=== PATIENT | female | born 1990 | race Caucasian/White ===

== ENCOUNTER 2018-12-27 20:19 | Emergency (ER) | payer SELFPAY ==
[2018-12-27] MEDS ORDERED: Ketorolac 30 MG/ML SDV IVPUSH ONE (20:27)
[2018-12-27] MEDS ORDERED: Sodium Chloride 0.9% 1,000 ML IV ONE (20:27)
[2018-12-27] MEDS ORDERED: Albuterol/Ipratropium 3.0-0.5 MG/3 ML Neb Soln NEB ONE (20:33)
--- NOTE | 2018-12-27 20:33 | EDM.PDOC ---
ED HPI GENERAL MEDICAL PROBLEM - General Chief Complaint: Chest Pain Stated Complaint: PT HAS CHEST PAINS Time Seen by Provider: 12/27/18 20:25 Source of Information: Reports: Patient History Limitations: Reports: No Limitations - History of Present Illness INITIAL COMMENTS - FREE TEXT/NARRATIVE: HISTORY AND PHYSICAL: History of present illness: Patient is a 28-year-old female who presents to the emergency room with complaints of right sided chest pain. She points to her right anterior upper chest, sustaining that she can pinpoint the area that is painful and can re- create this pain with palpation. She states that the pain does radiate straight into her back. She does have a history of asthma but has not had to use her inhaler in years. Today she felt like she needed her inhaler but was concerned due to taking in deep breaths. Patient denies any fever, chills, headache, change in vision, syncope or near syncope. Denies any shortness of breath or cough. Denies any abdominal pain, nausea, vomiting, diarrhea, constipation or dysuria. Has not noted any blood in urine or stool. Denies any chance of Patient has been eating and drinking appropriately. Review of systems: As per history of present illness and below otherwise all systems reviewed and negative. Past medical history: As per history of present illness and as reviewed below otherwise noncontributory. Surgical history: As per history of present illness and as reviewed below otherwise noncontributory. Social history: See social history for further information Family history: As per history of present illness and as reviewed below otherwise noncontributory. Physical exam: General: Well-developed and well-nourished 28-year-old female. Alert and oriented. Nontoxic appearing and in no acute distress. HEENT: Atraumatic, normocephalic, pupils equal and reactive bilaterally, negative for conjunctival pallor or scleral icterus, mucous membranes moist, TMs normal bilaterally, throat clear, neck supple, nontender, trachea midline. No drooling or trismus noted. No meningeal signs. No hot potato voice noted. Lungs: Fine expiratory wheezing throughout otherwise clear to auscultation, breath sounds equal bilaterally, chest tender to the right upper anterior chest wall. Pain is reproducible with palpation. Heart: S1S2, regular rate and rhythm without overt murmur Abdomen: Soft, nondistended, obese, nontender. Negative for masses. Negative for costovertebral tenderness. Pelvis: Stable nontender. Genitourinary: Deferred. Rectal: Deferred. Skin: Intact, warm, dry. No lesions or rashes noted. Extremities: Atraumatic, moves all extremities per self with difficulty or deficits, negative for cords or calf pain. Neurovascular unremarkable. Neuro: Awake, alert, oriented. Cranial nerves II through XII unremarkable. Cerebellum unremarkable. Motor and sensory unremarkable throughout. Exam nonfocal. Notes: Lab work is unremarkable. Chest x-ray shows no acute findings. These were shared with the patient. Supportive care measures were reviewed and discussed. Voices understanding and is agreeable to plan of care. Denies any further questions or concerns at this time. Diagnostics: CBC, CMP, UA, hCG U, 2 view chest Therapeutics: IV fluid, Toradol, DuoNeb Prescription: Diclofenac Impression: Chest Wall Pain Plan: 1. Please take the anti-inflammatory as directed. 2. Use your inhaler as needed and as directed. 3. Follow-up with her primary care provider as we discussed. Return to the ED as needed and as discussed. Definitive disposition and diagnosis as appropriate pending reevaluation and review of above. chest Pain Score (Numeric/FACES): 7 - Related Data Allergies Allergy/AdvReac Type Severity Reaction Status Date / Time latex Allergy Hives Verified 12/27/18 20:23 metoclopramide [From Reglan] Allergy Irritabilit Verified 12/27/18 20:24 y morphine Allergy Other Verified 12/27/18 20:24 promethazine [From Phenergan] Allergy Irritabilit Verified 12/27/18 20:24 y sumatriptan [From Imitrex] Allergy Irritabilit Verified 12/27/18 20:24 y Home Meds: Home Meds . [No Known Home Meds] 12/27/18 [History] ED ROS GENERAL - Review of Systems Review Of Systems: ROS reveals no pertinent complaints other than HPI. ED EXAM, GENERAL - Physical Exam Exam: See Below (See dictation) Course - Vital Signs Last Recorded V/S: Last Vital Signs Temp 97.9 F 12/27/18 20:24 Pulse 96 12/27/18 20:24 Resp 20 12/27/18 20:24 BP 151/113 H 12/27/18 20:24 Pulse Ox 96 12/27/18 20:24 - Orders/Labs/Meds Orders: Active Orders 24 hr Category Date Time Status EKG Documentation Completion [RC] STAT Care 12/27/18 20:26 Active RT Aerosol Therapy [RC] ASDIRECTED Care 12/27/18 20:33 Active Sodium Chloride 0.9% [Normal Saline] 1,000 ml Med 12/27/18 20:27 Active IV STAT Medication Orders Sodium Chloride (Normal Saline) 1,000 mls @ 999 mls/hr IV STAT ONE Stop: 12/27/18 21:27 Last Admin: 12/27/18 20:38 Dose: 999 mls/hr Labs: Laboratory Tests 12/27/18 12/27/18 12/27/18 Range/Units 20:37 20:37 21:10 WBC 10.82 (4.0-11.0) K/uL RBC 5.43 (4.30-5.90) M/uL Hgb 14.6 (12.0-16.0) g/dL Hct 44.0 (36.0-46.0) % MCV 81.0 (80.0-98.0) fL MCH 26.9 L (27.0-32.0) pg MCHC 33.2 (31.0-37.0) g/dL RDW Std Deviation 44.3 (28.0-62.0) fl RDW Coeff of Bandar 15 (11.0-15.0) % Plt Count 266 (150-400) K/uL MPV 10.10 (7.40-12.00) fL Neut % (Auto) 67.2 (48.0-80.0) % Lymph % (Auto) 23.9 (16.0-40.0) % [place] % (Auto) 6.4 (0.0-15.0) % Eos % (Auto) 2.1 (0.0-7.0) % Baso % (Auto) 0.4 (0.0-1.5) % Neut # (Auto) 7.3 H (1.4-5.7) K/uL Lymph # (Auto) 2.6 H (0.6-2.4) K/uL [place] # (Auto) 0.7 (0.0-0.8) K/uL Eos # (Auto) 0.2 (0.0-0.7) K/uL Baso # (Auto) 0.0 (0.0-0.1) K/uL Sodium 140 (136-145) mmol/L Potassium 4.1 (3.5-5.1) mmol/L Chloride 104 (98-107) mmol/L Carbon Dioxide 26.6 (21.0-32.0) mmol/L BUN 11 (7.0-18.0) mg/dL Creatinine 0.9 (0.6-1.0) mg/dL Est Cr Clr Drug Dosing 83.74 mL/min Estimated GFR (MDRD) > 60.0 ml/min Glucose 96 (74-106) mg/dL Calcium 9.2 (8.5-10.1) mg/dL Total Bilirubin 0.3 (0.2-1.0) mg/dL AST 23 (15-37) IU/L ALT 45 (14-63) IU/L Alkaline Phosphatase 84 (46-116) U/L Troponin I < 0.050 (0.000-0.056) ng/mL Total Protein 8.0 (6.4-8.2) g/dL Albumin 3.7 (3.4-5.0) g/dL Globulin 4.3 H (2.6-4.0) g/dL Albumin/Globulin Ratio 0.9 (0.9-1.6) Urine Color YELLOW Urine Appearance CLEAR Urine pH 6.0 (5.0-8.0) Ur Specific [place] 1.025 (1.001-1.035) Urine Protein NEGATIVE (NEGATIVE) mg/dL Urine Glucose (UA) NEGATIVE (NEGATIVE) mg/dL Urine Ketones NEGATIVE (NEGATIVE) mg/dL Urine Occult Blood NEGATIVE (NEGATIVE) Urine Nitrite NEGATIVE (NEGATIVE) Urine Bilirubin NEGATIVE (NEGATIVE) Urine Urobilinogen 0.2 (<2.0) EU/dL Ur Leukocyte Esterase NEGATIVE (NEGATIVE) Urine HCG, Qual (NEGATIVE) 12/27/18 Range/Units 21:10 WBC (4.0-11.0) K/uL RBC (4.30-5.90) M/uL Hgb (12.0-16.0) g/dL Hct (36.0-46.0) % MCV (80.0-98.0) fL MCH (27.0-32.0) pg MCHC (31.0-37.0) g/dL RDW Std Deviation (28.0-62.0) fl RDW Coeff of [place] (11.0-15.0) % Plt Count (150-400) K/uL MPV (7.40-12.00) fL Neut % (Auto) (48.0-80.0) % Lymph % (Auto) (16.0-40.0) % [place] % (Auto) (0.0-15.0) % Eos % (Auto) (0.0-7.0) % Baso % (Auto) (0.0-1.5) % Neut # (Auto) (1.4-5.7) K/uL Lymph # (Auto) (0.6-2.4) K/uL [place] # (Auto) (0.0-0.8) K/uL Eos # (Auto) (0.0-0.7) K/uL Baso # (Auto) (0.0-0.1) K/uL Sodium (136-145) mmol/L Potassium (3.5-5.1) mmol/L Chloride (98-107) mmol/L Carbon Dioxide (21.0-32.0) mmol/L BUN (7.0-18.0) mg/dL Creatinine (0.6-1.0) mg/dL Est Cr Clr Drug Dosing mL/min Estimated GFR (MDRD) ml/min Glucose (74-106) mg/dL Calcium (8.5-10.1) mg/dL Total Bilirubin (0.2-1.0) mg/dL AST (15-37) IU/L ALT (14-63) IU/L Alkaline Phosphatase (46-116) U/L Troponin I (0.000-0.056) ng/mL Total Protein (6.4-8.2) g/dL Albumin (3.4-5.0) g/dL Globulin (2.6-4.0) g/dL Albumin/Globulin Ratio (0.9-1.6) Urine Color Urine Appearance Urine pH (5.0-8.0) Ur Specific [place] (1.001-1.035) Urine Protein (NEGATIVE) mg/dL Urine Glucose (UA) (NEGATIVE) mg/dL Urine Ketones (NEGATIVE) mg/dL Urine Occult Blood (NEGATIVE) Urine Nitrite (NEGATIVE) Urine Bilirubin (NEGATIVE) Urine Urobilinogen (<2.0) EU/dL Ur Leukocyte Esterase (NEGATIVE) Urine HCG, Qual NEGATIVE (NEGATIVE) Meds: Medications Generic Name Dose Route Start Last Admin Trade Name Anusha PRN Reason Stop Dose Admin Sodium Chloride 1,000 mls @ 999 mls/hr 12/27/18 20:27 12/27/18 20:38 Normal Saline IV 12/27/18 21:27 999 mls/hr STAT ONE Administration Discontinued Medications Generic Name Dose Route Start Last Admin Trade Name Anusha PRN Reason Stop Dose Admin Albuterol/Ipratropium 3 ml 12/27/18 20:33 12/27/18 20:44 Duoneb 3.0-0.5 Mg/3 Ml NEB 12/27/18 20:34 3 ml ONETIME ONE Administration Ketorolac Tromethamine 30 mg 12/27/18 20:27 12/27/18 20:38 Toradol IVPUSH 12/27/18 20:28 30 mg ONETIME ONE Administration Departure - Departure Time of Disposition: 21:21 Disposition: Home, Self-Care 01 Clinical Impression: Chest wall pain Instructions: Chest Wall Pain, [id number] Referrals: PCP,None [Primary Care Provider] - Forms: ED Department Discharge Additional Instructions: The following information is given to patients seen in the emergency department who are being discharged to home. This information is to outline your options for follow-up care. We provide all patients seen in our emergency department with a follow-up referral. The need for follow-up, as well as the timing and circumstances, are variable depending upon the specifics of your emergency department visit. If you don't have a primary care physician on staff, we will provide you with a referral. We always advise you to contact your personal physician following an emergency department visit to inform them of the circumstance of the visit and for follow-up with them and/or the need for any referrals to a consulting specialist. The emergency department will also refer you to a specialist when appropriate. This referral assures that you have the opportunity for follow-up care with a specialist. All of these measure are taken in an effort to provide you with optimal care, which includes your follow-up. Under all circumstances we always encourage you to contact your private physician who remains a resource for coordinating your care. When calling for follow-up care, please make the office aware that this follow-up is from your recent emergency room visit. If for any reason you are refused follow-up, please contact the [facility] Emergency Department at and asked to speak to the emergency department charge nurse. [facility] [address] [place] [address] [facility] [address] [place] [id number] 1. Please take the anti-inflammatory as directed. 2. Use your inhaler as needed and as directed. 3. Follow-up with her primary care provider as we discussed. Return to the ED as needed and as discussed. - My Orders Last 24 Hours: My Active Orders 12/27/18 20:26 EKG Documentation Completion [RC] STAT 12/27/18 20:27 Sodium Chloride 0.9% [Normal Saline] 1,000 ml IV STAT 12/27/18 20:33 RT Aerosol Therapy [RC] ASDIRECTED - Assessment/Plan Last 24 Hours: My Active Orders 12/27/18 20:26 EKG Documentation Completion [RC] STAT 12/27/18 20:27 Sodium Chloride 0.9% [Normal Saline] 1,000 ml IV STAT 12/27/18 20:33 RT Aerosol Therapy [RC] ASDIRECTED
[2018-12-27 21:09] LABS: CHLORIDE,CL 104 mmol/L (98-107); SODIUM,NA 140 mmol/L (136-145)
--- NOTE | 2018-12-27 21:15 | CR ---
INDICATION: Chest pain, shortness of breath TECHNIQUE: Chest 2 views. COMPARISON: None FINDINGS: The heart is normal in size. The pulmonary vasculature is within normal limits. The lungs are clear without focal consolidation, pleural effusion or pneumothorax. Visualized osseous structures are unremarkable. IMPRESSION: No acute cardiopulmonary process. Dictated by Kristin Kunz MD @ Dec 27 2018 9:12PM Signed by Dr. Kristin Kunz @ Dec 27 2018 9:13PM
== END 2018-12-27 21:30 | disposition home or self-care (01) ==
LOC: MW.ED 20:19
DX: R07.89 Other chest pain (principal); Z91.040 Latex allergy status; Z88.5 Allergy status to narcotic agent; Z88.8 Allergy status to other drugs, medicaments and biological substances
CPT/HCPCS: 36415; 71046; 80053; 81003; 81025; 84484; 85025; 93005; 94640; 96361; 96374; 99285; J1885; J7040; 99284; J7620-GY

== ENCOUNTER 2019-02-07 22:26 | Emergency (ER) | payer MEDICAID ==
--- NOTE | 2019-02-07 22:55 | EDM.PDOC ---
ED HPI GENERAL MEDICAL PROBLEM - General Chief Complaint: Flank Pain Stated Complaint: KIDNEY STONES Time Seen by Provider: 02/07/19 22:46 - History of Present Illness INITIAL COMMENTS - FREE TEXT/NARRATIVE: HISTORY AND PHYSICAL: History of present illness: Patient 28-year-old female with history of nephrolithiasis who states she's never had an obstructing stone but she has had pain related to her nephrolithiasis for which she's been treated with lithotripsy she saw local urology recently who CT her and again identified nephrolithiasis patient states there is some concern about how this can be causing her flank pain. On arrival here today patient is requesting Toradol she is declining any further diagnostic but does agree to UA and she does understand the general consensus that nephrolithiasis without any obstruction or infection does not commonly cause this type of pain. Review of systems: As per history of present illness and below otherwise all systems reviewed and negative. Past medical history: As per history of present illness and as reviewed below otherwise noncontributory. Surgical history: As per history of present illness and as reviewed below otherwise noncontributory. Social history: No reported history of drug or alcohol abuse. Family history: As per history of present illness and as reviewed below otherwise noncontributory. Physical exam: HEENT: Atraumatic, normocephalic, pupils reactive, negative for conjunctival pallor or scleral icterus, mucous membranes moist, throat clear, neck supple, nontender, trachea midline. Lungs: Clear to auscultation, breath sounds equal bilaterally, chest nontender. Heart: S1S2, regular, negative for clicks, rubs, or JVD. Abdomen: Soft, nondistended, nontender. Negative for masses or hepatosplenomegaly. Negative for costovertebral tenderness. Pelvis: Stable nontender. Genitourinary: Deferred. Rectal: Deferred. Extremities: Atraumatic, negative for cords or calf pain. Neurovascular unremarkable. Neuro: Awake, alert, oriented. Cranial nerves II through XII unremarkable. Cerebellum unremarkable. Motor and sensory unremarkable throughout. Exam nonfocal. Diagnostics: UA Therapeutics: Toradol 30 mg IV Impression: #1 history of nephrolithiasis #2 flank pain Definitive disposition and diagnosis as appropriate pending reevaluation and review of above. Treatments FURNACE CONVERTER: Reports: NSAIDS, Other (see below) Other Treatments FURNACE CONVERTER: Toradol;Oxycodone left flank Pain Score (Numeric/FACES): 7 - Related Data Allergies Allergy/AdvReac Type Severity Reaction Status Date / Time acetaminophen [From Vicodin] Allergy Irritabilit Verified 02/07/19 22:35 y adhesive Allergy Hives Verified 02/07/19 22:35 hydrocodone [From Vicodin] Allergy Irritabilit Verified 02/07/19 22:35 y latex Allergy Hives Verified 02/07/19 22:34 metoclopramide [From Reglan] Allergy Irritabilit Verified 02/07/19 22:34 y morphine Allergy Other Verified 02/07/19 22:34 promethazine [From Phenergan] Allergy Irritabilit Verified 02/07/19 22:34 y sumatriptan [From Imitrex] Allergy Irritabilit Verified 02/07/19 22:34 y Home Meds: Home Meds ALPRAZolam [Xanax] 1 tab PO ASDIRECTED 02/07/19 [History] FLUoxetine [PROzac] 10 mg PO DAILY 02/07/19 [History] Past Medical History HEENT History: Reports: Impaired Vision, Other (See Below) Other HEENT History: wears glasses Respiratory History: Reports: Asthma, Sleep Apnea Gastrointestinal History: Reports: GERD, Irritable Bowel Syndrome Genitourinary History: Reports: Renal Calculus 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 PRACTITIONER History: Reports: Polycystic Ovaries Neurological History: Reports: Migraines Psychiatric History: Reports: Anxiety, Depression Endocrine/Metabolic History: Reports: Obesity/BMI 30+ - Infectious Disease History Infectious Disease History: Reports: Chicken Pox - Past Surgical History Female Surgical History: Reports: Lithotripsy/ESWL, Other (See Below) Other Female Surgeries/Procedures: Nephrostomy Social & Family History - Family History Family Medical History: Noncontributory - Tobacco Use Smoking Status *Q: Current Every Day Smoker Years of Tobacco use: 10 Packs/Tins Daily: 1 - Caffeine Use Caffeine Use: Reports: Coffee, Energy Drinks, Soda, Tea - Recreational Drug Use Recreational Drug Use: No ED ROS GENERAL - Review of Systems Review Of Systems: ROS reveals no pertinent complaints other than HPI. ED EXAM, GENERAL - Physical Exam Exam: See Below (The dictation) Course - Vital Signs Last Recorded V/S: Last Vital Signs Temp 35.7 C 02/07/19 22:30 Pulse 119 H 02/07/19 22:30 Resp 18 02/07/19 22:30 BP 159/94 H 02/07/19 22:30 Pulse Ox 95 02/07/19 22:30 - Orders/Labs/Meds Labs: Laboratory Tests 02/07/19 Range/Units 22:57 Urine Color YELLOW Urine Appearance CLEAR Urine pH 6.0 (5.0-8.0) Ur Specific [place] 1.010 (1.001-1.035) Urine Protein NEGATIVE (NEGATIVE) mg/dL Urine Glucose (UA) NEGATIVE (NEGATIVE) mg/dL Urine Ketones NEGATIVE (NEGATIVE) mg/dL Urine Occult Blood NEGATIVE (NEGATIVE) Urine Nitrite NEGATIVE (NEGATIVE) Urine Bilirubin NEGATIVE (NEGATIVE) Urine Urobilinogen 0.2 (<2.0) EU/dL Ur Leukocyte Esterase NEGATIVE (NEGATIVE) Meds: Medications Discontinued Medications Generic Name Dose Route Start Last Admin Trade Name Freq PRN Reason Stop Dose Admin Ketorolac Tromethamine 30 mg 02/07/19 23:01 02/07/19 23:05 Toradol IVPUSH 02/07/19 23:02 30 mg ONETIME ONE Administration Departure - Departure Time of Disposition: 23:29 Disposition: Home, Self-Care 01 Condition: Good Clinical Impression: Flank pain, History of nephrolithiasis - Discharge Information Referrals: Henri Gutierrez MD [Primary Care Provider] - Forms: ED Department Discharge Additional Instructions: The following information is given to patients seen in the emergency department who are being discharged to home. This information is to outline your options for follow-up care. We provide all patients seen in our emergency department with a follow-up referral. The need for follow-up, as well as the timing and circumstances, are variable depending upon the specifics of your emergency department visit. If you don't have a primary care physician on staff, we will provide you with a referral. We always advise you to contact your personal physician following an emergency department visit to inform them of the circumstance of the visit and for follow-up with them and/or the need for any referrals to a consulting specialist. The emergency department will also refer you to a specialist when appropriate. This referral assures that you have the opportunity for followup care with a specialist. All of these measure are taken in an effort to provide you with optimal care, which includes your followup. Under all circumstances we always encourage you to contact your private physician who remains a resource for coordinating your care. When calling for followup care, please make the office aware that this follow-up is from your recent emergency room visit. If for any reason you are refused follow-up, please contact the [facility] emergency department at and asked to speak to the emergency department charge nurse. Push fluids follow primary medical doctor in urology as discussed return as needed as discussed
[2019-02-07] MEDS ORDERED: Ketorolac 30 MG/ML SDV IVPUSH ONE (23:01)
== END 2019-02-07 23:40 | disposition home or self-care (01) ==
LOC: MW.ED 22:26
DX: R10.9 Unspecified abdominal pain (principal); Z87.442 Personal history of urinary calculi; Z88.6 Allergy status to analgesic agent; Z91.09 Other allergy status, other than to drugs and biological substances; Z91.040 Latex allergy status; Z88.5 Allergy status to narcotic agent; Z88.8 Allergy status to other drugs, medicaments and biological substances
CPT/HCPCS: 81003; 96372; 99284; J1885

== ENCOUNTER 2019-03-03 16:30 | Emergency (ER) | payer MEDICAID ==
[2019-03-03] MEDS ORDERED: Ketorolac 30 MG/ML SDV IVPUSH ONE (17:32)
--- NOTE | 2019-03-03 17:34 | EDM.PDOC ---
ED HPI GENERAL MEDICAL PROBLEM - General Chief Complaint: Headache Stated Complaint: HEAD LUMP/HEADACHE Time Seen by Provider: 03/03/19 16:32 Source of Information: Reports: Patient History Limitations: Reports: No Limitations - History of Present Illness INITIAL COMMENTS - FREE TEXT/NARRATIVE: HISTORY AND PHYSICAL: History of present illness: Patient is a 28-year-old female presents to the ED today with concern of left sided facial swelling that started last night and worsened this morning. Patient states she also has a bump on the top of her head that she is not sure is related to her symptoms are not that started causing pain yesterday. Patient states she does have a history of scalp psoriasis and has had several other issues with her scalp in general. Patient states the swelling on the left side of her face has made it difficult to open her mouth due to pain. Patient denies any dental pain and states she sees a dentist regularly and keeps up on dental cleanings and has never had issues with her teeth. Patient states she does smoke cigarettes but denies any other substance use. Patient denies fever, chills, chest pain, shortness of breath, or cough. Denies headache, neck stiff ness, change in vision, syncope, or near syncope. Denies nausea, vomiting, abdominal pain, diarrhea, constipation, or dysuria. Has not noted any blood in urine or stool. Patient has been eating and drinking appropriately but pain doing so. Review of systems: As per history of present illness and below otherwise all systems reviewed and negative. Past medical history: As per history of present illness and as reviewed below otherwise noncontributory. Surgical history: As per history of present illness and as reviewed below otherwise noncontributory. Social history: See social history for further information Family history: As per history of present illness and as reviewed below otherwise noncontributory. Physical exam: General: Patient is alert, oriented, and in no acute distress. Patient sitting comfortably on exam table. HEENT: Atraumatic, normocephalic, pupils equal and reactive bilaterally, negative for conjunctival pallor or scleral icterus, mucous membranes moist, TMs normal bilaterally, throat clear, neck supple, nontender, trachea midline. No drooling or trismus noted. No meningeal signs. No hot potato voice noted. There is a 2cm lesion just a few cm from the forehead into the scalp that is painful to palpation. Appears to have excoriation on top with surrounding psoriasis plaques of generalized scalp. Severe pain to palpation of the preauricular area with swelling. Unable to fully assess this swelling due to pain. Dention appears well kept and no pain with palpation of the generalized teeth. Lungs: Clear to auscultation, breath sounds equal bilaterally, chest nontender. Heart: S1S2, regular rate and rhythm without overt murmur Abdomen: Soft, nondistended, nontender. Negative for masses or hepatosplenomegaly. Negative for costovertebral tenderness. Pelvis: Stable nontender. Genitourinary: Deferred. Rectal: Deferred. Skin: Intact, warm, dry. No lesions or rashes noted. Extremities: Atraumatic, negative for cords or calf pain. Neurovascular unremarkable. Neuro: Awake, alert, oriented. Cranial nerves II through XII unremarkable. Cerebellum unremarkable. Motor and sensory unremarkable throughout. Exam nonfocal. Notes: The lesion on the scalp appears to be scratched and secondarily affected psoriasis patch with about an area of 1cm cellulitis. Supportive care measures were reviewed and discussed. Voices understanding and is agreeable to plan of care. Denies any further questions or concerns at this time. Diagnostics: CBC, CMP, UA, strep, mono, [facility] Therapeutics: Toradol Prescription: Keflex Impression: Lymphadenitis, preauricular Scalp psoriasis with secondary cellulitis infection Plan: 1. Take medication as prescribed. Alternate ibuprofen and tylenol as directed for pain and discomfort. 2. Follow-up with primary care provider as discussed. Return to the ED as needed and as discussed. Definitive disposition and diagnosis as appropriate pending reevaluation and review of above. left top of head Pain Score (Numeric/FACES): 5 - Related Data Allergies Allergy/AdvReac Type Severity Reaction Status Date / Time acetaminophen [From Vicodin] Allergy Irritabilit Verified 03/03/19 16:41 y adhesive Allergy Hives Verified 03/03/19 16:41 hydrocodone [From Vicodin] Allergy Irritabilit Verified 03/03/19 16:41 y latex Allergy Hives Verified 03/03/19 16:41 metoclopramide [From Reglan] Allergy Irritabilit Verified 03/03/19 16:41 y morphine Allergy Other Verified 03/03/19 16:41 promethazine [From Phenergan] Allergy Irritabilit Verified 03/03/19 16:41 y sumatriptan [From Imitrex] Allergy Irritabilit Verified 03/03/19 16:41 y Home Meds: Home Meds ALPRAZolam [Xanax] 1 tab PO ASDIRECTED 02/07/19 [History] FLUoxetine [PROzac] 10 mg PO DAILY 02/07/19 [History] Past Medical History HEENT History: Reports: Impaired Vision, Other (See Below) Other HEENT History: wears glasses Respiratory History: Reports: Asthma, Sleep Apnea Gastrointestinal History: Reports: GERD, Irritable Bowel Syndrome Genitourinary History: Reports: Renal Calculus 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: Polycystic Ovaries Neurological History: Reports: Migraines Psychiatric History: Reports: Anxiety, Depression Endocrine/Metabolic History: Reports: Obesity/BMI 30+ - Infectious Disease History Infectious Disease History: Reports: None - Past Surgical History Female Surgical History: Reports: Lithotripsy/ESWL, Other (See Below) Other Female Surgeries/Procedures: Nephrostomy Social & Family History - Family History Family Medical History: Noncontributory - Tobacco Use Smoking Status *Q: Current Every Day Smoker Years of Tobacco use: 10 Packs/Tins Daily: 0.5 - Caffeine Use Caffeine Use: Reports: Coffee, Energy Drinks, Soda, Tea - Recreational Drug Use Recreational Drug Use: No ED ROS GENERAL - Review of Systems Review Of Systems: ROS reveals no pertinent complaints other than HPI. ED EXAM, GENERAL - Physical Exam Exam: See Below (See dictation) Course - Vital Signs Last Recorded V/S: Last Vital Signs Temp 36.1 C 03/03/19 16:39 Pulse 114 H 03/03/19 16:39 Resp 18 03/03/19 16:39 BP 152/113 H 03/03/19 16:39 Pulse Ox 95 03/03/19 16:39 - Orders/Labs/Meds Orders: Active Orders 24 hr Category Date Time Status CULTURE STREP A CONFIRMATION [] Stat Lab 03/03/19 17:18 Results STREP SCRN A RAPID W CULT CONF [] Stat Lab 03/03/19 17:18 Results Labs: Laboratory Tests 03/03/19 03/03/19 03/03/19 Range/Units 17:10 17:10 17:10 WBC 9.24 (4.0-11.0) K/uL RBC 5.54 (4.30-5.90) M/uL Hgb 14.8 (12.0-16.0) g/dL Hct 46.9 H (36.0-46.0) % MCV 84.7 (80.0-98.0) fL MCH 26.7 L (27.0-32.0) pg MCHC 31.6 (31.0-37.0) g/dL RDW Std Deviation 43.9 (28.0-62.0) fl RDW Coeff of [place]ar 14 (11.0-15.0) % Plt Count 238 (150-400) K/uL MPV 10.50 (7.40-12.00) fL Neut % (Auto) 66.6 (48.0-80.0) % Lymph % (Auto) 25.0 (16.0-40.0) % [place] % (Auto) 5.5 (0.0-15.0) % Eos % (Auto) 2.6 (0.0-7.0) % Baso % (Auto) 0.3 (0.0-1.5) % Neut # (Auto) 6.2 H (1.4-5.7) K/uL Lymph # (Auto) 2.3 (0.6-2.4) K/uL [place] # (Auto) 0.5 (0.0-0.8) K/uL Eos # (Auto) 0.2 (0.0-0.7) K/uL Baso # (Auto) 0.0 (0.0-0.1) K/uL Nucleated RBC % 0.0 /100WBC Nucleated RBCs # 0 K/uL Sodium 140 (136-145) mmol/L Potassium 4.3 (3.5-5.1) mmol/L Chloride 104 (98-107) mmol/L Carbon Dioxide 26.6 (21.0-32.0) mmol/L BUN 11 (7.0-18.0) mg/dL Creatinine 0.7 (0.6-1.0) mg/dL Est Cr Clr Drug Dosing 107.67 mL/min Estimated GFR (MDRD) > 60.0 ml/min Glucose 113 H (74-106) mg/dL Calcium 9.1 (8.5-10.1) mg/dL Total Bilirubin 0.4 (0.2-1.0) mg/dL AST 19 (15-37) IU/L ALT 28 (14-63) IU/L Alkaline Phosphatase 95 (46-116) U/L Total Protein 7.9 (6.4-8.2) g/dL Albumin 3.6 (3.4-5.0) g/dL Globulin 4.3 H (2.6-4.0) g/dL Albumin/Globulin Ratio 0.8 L (0.9-1.6) Urine Color Urine Appearance Urine pH (5.0-8.0) Ur Specific [place] (1.001-1.035) Urine Protein (NEGATIVE) mg/dL Urine Glucose (UA) (NEGATIVE) mg/dL Urine Ketones (NEGATIVE) mg/dL Urine Occult Blood (NEGATIVE) Urine Nitrite (NEGATIVE) Urine Bilirubin (NEGATIVE) Urine Urobilinogen (<2.0) EU/dL Ur Leukocyte Esterase (NEGATIVE) Urine HCG, Qual (NEGATIVE) Monoscreen NEGATIVE (NEG) 03/03/19 03/03/19 Range/Units 17:15 17:15 WBC (4.0-11.0) K/uL RBC (4.30-5.90) M/uL Hgb (12.0-16.0) g/dL Hct (36.0-46.0) % MCV (80.0-98.0) fL MCH (27.0-32.0) pg MCHC (31.0-37.0) g/dL RDW Std Deviation (28.0-62.0) fl RDW Coeff of [place] (11.0-15.0) % Plt Count (150-400) K/uL MPV (7.40-12.00) fL Neut % (Auto) (48.0-80.0) % Lymph % (Auto) (16.0-40.0) % [place] % (Auto) (0.0-15.0) % Eos % (Auto) (0.0-7.0) % Baso % (Auto) (0.0-1.5) % Neut # (Auto) (1.4-5.7) K/uL Lymph # (Auto) (0.6-2.4) K/uL [place] # (Auto) (0.0-0.8) K/uL Eos # (Auto) (0.0-0.7) K/uL Baso # (Auto) (0.0-0.1) K/uL Nucleated RBC % /100WBC Nucleated RBCs # K/uL Sodium (136-145) mmol/L Potassium (3.5-5.1) mmol/L Chloride (98-107) mmol/L Carbon Dioxide (21.0-32.0) mmol/L BUN (7.0-18.0) mg/dL Creatinine (0.6-1.0) mg/dL Est Cr Clr Drug Dosing mL/min Estimated GFR (MDRD) ml/min Glucose (74-106) mg/dL Calcium (8.5-10.1) mg/dL Total Bilirubin (0.2-1.0) mg/dL AST (15-37) IU/L ALT (14-63) IU/L Alkaline Phosphatase (46-116) U/L Total Protein (6.4-8.2) g/dL Albumin (3.4-5.0) g/dL Globulin (2.6-4.0) g/dL Albumin/Globulin Ratio (0.9-1.6) Urine Color YELLOW Urine Appearance CLEAR Urine pH 7.0 (5.0-8.0) Ur Specific [place] 1.015 (1.001-1.035) Urine Protein NEGATIVE (NEGATIVE) mg/dL Urine Glucose (UA) NEGATIVE (NEGATIVE) mg/dL Urine Ketones NEGATIVE (NEGATIVE) mg/dL Urine Occult Blood NEGATIVE (NEGATIVE) Urine Nitrite NEGATIVE (NEGATIVE) Urine Bilirubin NEGATIVE (NEGATIVE) Urine Urobilinogen 0.2 (<2.0) EU/dL Ur Leukocyte Esterase NEGATIVE (NEGATIVE) Urine HCG, Qual NEGATIVE (NEGATIVE) Monoscreen (NEG) Meds: Medications Discontinued Medications Generic Name Dose Route Start Last Admin Trade Name Freq PRN Reason Stop Dose Admin Iopamidol 75 ml 03/03/19 18:37 03/03/19 18:37 Isovue Multipack-370 (76%) IVPUSH 03/03/19 18:38 75 ml ONETIME STA Administration Ketorolac Tromethamine 30 mg 03/03/19 17:32 03/03/19 17:44 Toradol IVPUSH 03/03/19 17:33 30 mg ONETIME ONE Administration Departure - Departure Time of Disposition: 19:41 Disposition: Home, Self-Care 01 Clinical Impression: Lymphadenitis Cellulitis Qualifiers: Site of cellulitis: head Qualified Code(s): L03.811 - Cellulitis of head [any part, except face] - Discharge Information Instructions: Lymphadenopathy, Cellulitis, Adult, [id number] Referrals: PCP,None [Primary Care Provider] - Forms: ED Department Discharge Additional Instructions: The following information is given to patients seen in the emergency department who are being discharged to home. This information is to outline your options for follow-up care. We provide all patients seen in our emergency department with a follow-up referral. The need for follow-up, as well as the timing and circumstances, are variable depending upon the specifics of your emergency department visit. If you don't have a primary care physician on staff, we will provide you with a referral. We always advise you to contact your personal physician following an emergency department visit to inform them of the circumstance of the visit and for follow-up with them and/or the need for any referrals to a consulting specialist. The emergency department will also refer you to a specialist when appropriate. This referral assures that you have the opportunity for follow-up care with a specialist. All of these measure are taken in an effort to provide you with optimal care, which includes your follow-up. Under all circumstances we always encourage you to contact your private physician who remains a resource for coordinating your care. When calling for follow-up care, please make the office aware that this follow-up is from your recent emergency room visit. If for any reason you are refused follow-up, please contact the [facility] Emergency Department at and asked to speak to the emergency department charge nurse. [facility] [address] [place] [id number] [address] 1. Take medication as prescribed. Alternate ibuprofen and tylenol as directed for pain and discomfort. 2. Follow-up with primary care provider as discussed. Return to the ED as needed and as discussed. - My Orders Last 24 Hours: My Active Orders 03/03/19 17:18 CULTURE STREP A CONFIRMATION [RM] Stat STREP SCRN A RAPID W CULT CONF [RM] Stat - Assessment/Plan Last 24 Hours: My Active Orders 03/03/19 17:18 CULTURE STREP A CONFIRMATION [RM] Stat STREP SCRN A RAPID W CULT CONF [RM] Stat
[2019-03-03 17:58] LABS: CHLORIDE,CL 104 mmol/L (98-107); SODIUM,NA 140 mmol/L (136-145)
[2019-03-03] MEDS ORDERED: Iopamidol 755 MG/ML 500 ML Multipack Bottle IVPUSH STA (18:37)
--- NOTE | 2019-03-03 19:24 | CT ---
INDICATION: Left-sided facial swelling TECHNIQUE: CT maxillofacial with 75 cc Isovue 370 IV. COMPARISON: None FINDINGS: Facial bones: No fractures or bone lesions. Specifically the nasal bones, temporomandibular joints, maxilla and mandible appear intact. Orbits and globes: Unremarkable. Globes are intact. No sign of intraorbital hemorrhage or emphysema. Sinuses: No acute or significant findings. Soft tissues: No focal swelling or inflammation. No fluid collection. There are multiple minimally prominent lymph nodes. IMPRESSION: No sign of focal inflammation or edema. No abscess. There are a few minimally enlarged lymph nodes. Please note that all CT scans at this facility use dose modulation, iterative reconstruction, and/or weight-based dosing when appropriate to reduce radiation dose to as low as reasonably achievable. Dictated by Wilberto Mcclure MD @ Mar 03 2019 7:09PM Signed by Dr. Wilberto Mcclure @ Mar 03 2019 7:23PM
== END 2019-03-03 19:45 | disposition home or self-care (01) ==
LOC: MW.ED 16:30
DX: L03.811 Cellulitis of head [any part, except face] (principal); I88.8 Other nonspecific lymphadenitis; L40.8 Other psoriasis
CPT/HCPCS: 36415; 70487; 80053; 81003; 81025; 85025; 86308; 87081; 87880; 96374; 99284; J1885; Q9967

== ENCOUNTER 2019-03-05 21:38 | Emergency (ER) | payer MEDICAID ==
[2019-03-05] MEDS ORDERED: Ertapenem 1 GM Vial IM STA (22:37)
[2019-03-05] MEDS ORDERED: Sulfamethoxazole/Trimethoprim 800-160 MG Tab PO ONE (22:38)
--- NOTE | 2019-03-05 22:40 | EDM.PDOC ---
ED HPI GENERAL MEDICAL PROBLEM - General Chief Complaint: Neck Problem Stated Complaint: HEADACHE Time Seen by Provider: 03/05/19 22:38 Source of Information: Reports: Patient - History of Present Illness INITIAL COMMENTS - FREE TEXT/NARRATIVE: HISTORY AND PHYSICAL: History of present illness: [Patient presents with recent history of cellulitis and clinical parotitis She has increasing symptoms no current sore throat no fever nausea vomiting chills sweats no muffled voice or trismus no drooling ] Review of systems: As per history of present illness and below otherwise all systems reviewed and negative. Past medical history: As per history of present illness and as reviewed below otherwise noncontributory. Surgical history: As per history of present illness and as reviewed below otherwise noncontributory. Social history: No reported history of drug or alcohol abuse. Family history: As per history of present illness and as reviewed below otherwise noncontributory. Physical exam: HEENT: Atraumatic, normocephalic, pupils reactive, negative for conjunctival pallor or scleral icterus, mucous membranes moist, throat clear, neck supple, nontender, trachea midline. Moderate tenderness over the parotid gland on the left, small scalp lesion tender to the touch but size of a quarter red warm tender cellulitic no exudate for culture no fluctuance for I&D Lungs: Clear to auscultation, breath sounds equal bilaterally, chest nontender. Heart: S1S2, regular, negative for clicks, rubs, or JVD. Abdomen: Soft, nondistended, nontender. Negative for masses or hepatosplenomegaly. Negative for costovertebral tenderness. Pelvis: Stable nontender. Genitourinary: Deferred. Rectal: Deferred. Extremities: Atraumatic, negative for cords or calf pain. Neurovascular unremarkable. Neuro: Awake, alert, oriented. Cranial nerves II through XII unremarkable. Cerebellum unremarkable. Motor and sensory unremarkable throughout. Exam nonfocal. Diagnostics: [CT on file from 2 days prior Lab on file] Therapeutics: [Invanz 1 g IM Bactrim double strength by mouth twice a day #20 no refill ] return if symptoms persist or worsen despite treatment or if new concerning symptoms develop Impression: [Cellulitis, scalp quarter-sized lesion of tenderness Tender over left parotid gland, consistent with parotitis Definitive disposition and diagnosis as appropriate pending reevaluation and review of above. 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 Pain Score (Numeric/FACES): 7 - Related Data Allergies Allergy/AdvReac Type Severity Reaction Status Date / Time acetaminophen [From Vicodin] Allergy Irritabilit Verified 03/05/19 22:05 y adhesive Allergy Hives Verified 03/05/19 22:05 hydrocodone [From Vicodin] Allergy Irritabilit Verified 03/05/19 22:05 y latex Allergy Hives Verified 03/05/19 22:05 metoclopramide [From Reglan] Allergy Irritabilit Verified 03/05/19 22:05 y morphine Allergy Other Verified 03/05/19 22:05 promethazine [From Phenergan] Allergy Irritabilit Verified 03/05/19 22:05 y sumatriptan [From Imitrex] Allergy Irritabilit Verified 03/05/19 22:05 y Home Meds: Home Meds ALPRAZolam [Xanax] 1 tab PO ASDIRECTED 02/07/19 [History] FLUoxetine [PROzac] 10 mg PO DAILY 02/07/19 [History] cephALEXin [Keflex] mg PO BID 03/05/19 [History] Past Medical History HEENT History: Reports: Impaired Vision, Other (See Below) Other HEENT History: wears glasses Respiratory History: Reports: Asthma, Sleep Apnea Gastrointestinal History: Reports: GERD, Irritable Bowel Syndrome Genitourinary History: Reports: Renal Calculus 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 Neurological History: Reports: Migraines Psychiatric History: Reports: Anxiety, Depression Endocrine/Metabolic History: Reports: Obesity/BMI 30+ - Infectious Disease History Infectious Disease History: Reports: None - Past Surgical History Female Surgical History: Reports: Lithotripsy/ESWL, Other (See Below) Other Female Surgeries/Procedures: Nephrostomy Social & Family History - Family History Family Medical History: Noncontributory - Tobacco Use Smoking Status *Q: Never Smoker - Caffeine Use Caffeine Use: Reports: Coffee, Energy Drinks, Soda, Tea - Recreational Drug Use Recreational Drug Use: No ED ROS GENERAL - Review of Systems Review Of Systems: See Below ED EXAM, GENERAL - Physical Exam Exam: See Below Course - Vital Signs Last Recorded V/S: Last Vital Signs Temp 97.5 F 03/05/19 22:05 Pulse 105 H 03/05/19 22:05 Resp 18 03/05/19 22:05 BP 139/97 H 03/05/19 22:05 Pulse Ox 96 03/05/19 22:05 - Orders/Labs/Meds Meds: Medications Discontinued Medications Generic Name Dose Route Start Last Admin Trade Name [place]usha PRN Reason Stop Dose Admin Ertapenem 1 gm 03/05/19 22:37 03/05/19 22:53 Invanz IM 03/05/19 22:38 1 gm NOW STA Administration Lidocaine HCl 5 ml 03/05/19 22:44 03/05/19 22:52 Xylocaine-Mpf 1% INJECT 03/05/19 22:45 5 ml ONETIME ONE Administration Trimethoprim/Sulfamethoxazole 1 tab 03/05/19 22:38 03/05/19 22:51 Septra Ds PO 03/05/19 22:39 1 tab ONETIME ONE Administration Departure - Departure Time of Disposition: 23:12 Disposition: Home, Self-Care 01 Condition: Good Clinical Impression: Parotitis Cellulitis Qualifiers: Site of cellulitis: head Qualified Code(s): L03.811 - Cellulitis of head [any part, except face] - Discharge Information Referrals: PCP,None [Primary Care Provider] - Forms: ED Department Discharge Additional Instructions: Medication as prescribed Return if symptoms persist or worsen or if new concerning symptoms develop Follow-up with primary care in 2 weeks sooner as needed The following information is given to patients seen in the emergency department who are being discharged to home. This information is to outline your options for follow-up care. We provide all patients seen in our emergency department with a follow-up referral. The need for follow-up, as well as the timing and circumstances, are variable depending upon the specifics of your emergency department visit. If you don't have a primary care physician on staff, we will provide you with a referral. We always advise you to contact your personal physician following an emergency department visit to inform them of the circumstance of the visit and for follow-up with them and/or the need for any referrals to a consulting specialist. The emergency department will also refer you to a specialist when appropriate. This referral assures that you have the opportunity for follow-up care with a specialist. All of these measure are taken in an effort to provide you with optimal care, which includes your follow-up. Under all circumstances we always encourage you to contact your private physician who remains a resource for coordinating your care. When calling for follow-up care, please make the office aware that this follow-up is from your recent emergency room visit. If for any reason you are refused follow-up, please contact the [facility] emergency department at and asked to speak to the emergency department charge nurse.
== END 2019-03-05 23:26 | disposition home or self-care (01) ==
LOC: MW.ED 21:38
DX: L03.811 Cellulitis of head [any part, except face] (principal); K11.20 Sialoadenitis, unspecified; F41.9 Anxiety disorder, unspecified; F32.9 Major depressive disorder, single episode, unspecified; Z79.899 Other long term (current) drug therapy; Z88.8 Allergy status to other drugs, medicaments and biological substances
CPT/HCPCS: 99283; A9270; J1335; J2001; 99282

== ENCOUNTER 2019-03-07 14:41 | Emergency (ER) | payer MEDICAID ==
[2019-03-07] MEDS ORDERED: Sodium Chloride 0.9% 1,000 ML IV ONE (15:17)
--- NOTE | 2019-03-07 15:17 | EDM.PDOC ---
ED HPI GENERAL MEDICAL PROBLEM - General Chief Complaint: Skin Complaint Stated Complaint: RE EVAL ON INFECTION Time Seen by Provider: 03/07/19 15:17 Source of Information: Reports: Patient - History of Present Illness INITIAL COMMENTS - FREE TEXT/NARRATIVE: HISTORY AND PHYSICAL: History of present illness: [Patient presents with history of infectious process on her scalp she had a small dime-sized lesion on the frontal area which was red and tender she continues to have this although redness has decreased it is slurry control tender she remains tender along her left cheek to us exquisite touch CT of her sinuses was performed on the initial visit, I am repeating CT of soft tissues No fever nausea vomiting chills sweats no chest pain shortness breath dizziness or palpitation she does complain of a head pressure-like headache she rates 3 out of 10, she does have pain in the left SCM distribution lymph node swelling has gone down and is not appreciated on CT or physical exam, no visual changes or loss of vision ] Review of systems: As per history of present illness and below otherwise all systems reviewed and negative. Past medical history: As per history of present illness and as reviewed below otherwise noncontributory. Surgical history: As per history of present illness and as reviewed below otherwise noncontributory. Social history: No reported history of drug or alcohol abuse. Family history: As per history of present illness and as reviewed below otherwise noncontributory. Physical exam: HEENT: Atraumatic, normocephalic, pupils reactive, negative for conjunctival pallor or scleral icterus, mucous membranes moist, throat clear, neck supple, nontender, trachea midline. Lungs: Clear to auscultation, breath sounds equal bilaterally, chest nontender. Heart: S1S2, regular, negative for clicks, rubs, or JVD. Abdomen: Soft, nondistended, nontender. Negative for masses or hepatosplenomegaly. Negative for costovertebral tenderness. Pelvis: Stable nontender. Genitourinary: Deferred. Rectal: Deferred. Extremities: Atraumatic, negative for cords or calf pain. Neurovascular unremarkable. Neuro: Awake, alert, oriented. Cranial nerves II through XII unremarkable. Cerebellum unremarkable. Motor and sensory unremarkable throughout. Exam nonfocal. Diagnostics: [CT soft tissue neck CBC ESR CRP ] Therapeutics: Carbamazepine Toradol Continue Bactrim Gabapentin trial ] Impression: [ facial pain Insistent with trigeminal neuralgia Chronic history of baseline ] Definitive disposition and diagnosis as appropriate pending reevaluation and review of above. Head Pain Score (Numeric/FACES): 6 - Related Data Allergies Allergy/AdvReac Type Severity Reaction Status Date / Time acetaminophen [From Vicodin] Allergy Irritabilit Verified 03/07/19 14:48 y adhesive Allergy Hives Verified 03/07/19 14:48 hydrocodone [From Vicodin] Allergy Irritabilit Verified 03/07/19 14:48 y latex Allergy Hives Verified 03/07/19 14:48 metoclopramide [From Reglan] Allergy Irritabilit Verified 03/07/19 14:48 y morphine Allergy Other Verified 03/07/19 14:48 promethazine [From Phenergan] Allergy Irritabilit Verified 03/07/19 14:48 y sumatriptan [From Imitrex] Allergy Irritabilit Verified 03/07/19 14:48 y Home Meds: Home Meds ALPRAZolam [Xanax] 1 tab PO ASDIRECTED 02/07/19 [History] FLUoxetine [PROzac] 10 mg PO DAILY 02/07/19 [History] cephALEXin [Keflex] 500 mg PO BID 03/05/19 [History] FLUoxetine [PROzac] 40 mg PO ASDIRECTED 03/07/19 [History] LORazepam [Ativan] 1 mg PO ASDIRECTED 03/07/19 [History] Sulfamethoxazole/Trimethoprim [Bactrim Ds Tablet] 1 each PO BID 03/07/19 [ History] Past Medical History HEENT History: Reports: Impaired Vision, Other (See Below) Other HEENT History: wears glasses Respiratory History: Reports: Asthma, Sleep Apnea Gastrointestinal History: Reports: GERD, Irritable Bowel Syndrome Genitourinary History: Reports: Renal 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 Neurological History: Reports: Migraines Psychiatric History: Reports: Anxiety, Depression Endocrine/Metabolic History: Reports: Obesity/BMI 30+ - Infectious Disease History Infectious Disease History: Reports: None - Past Surgical History Female Surgical History: Reports: Lithotripsy/ESWL, Other (See Below) Other Female Surgeries/Procedures: Nephrostomy Social & Family History - Family History Family Medical History: Noncontributory - Tobacco Use Smoking Status *Q: Current Every Day Smoker Years of Tobacco use: 10 Packs/Tins Daily: 0.5 - Caffeine Use Caffeine Use: Reports: Coffee - Recreational Drug Use Recreational Drug Use: No ED ROS GENERAL - Review of Systems Review Of Systems: See Below ED EXAM, SKIN/RASH Exam: See Below Course - Vital Signs Last Recorded V/S: Last Vital Signs Temp 97.3 F 03/07/19 14:54 Pulse 109 H 03/07/19 14:54 Resp 16 03/07/19 14:54 BP 162/99 H 03/07/19 14:54 Pulse Ox 96 03/07/19 14:54 - Orders/Labs/Meds Labs: Laboratory Tests 03/07/19 03/07/19 03/07/19 Range/Units 15:32 15:32 15:32 WBC 9.83 (4.0-11.0) K/uL RBC 5.53 (4.30-5.90) M/uL Hgb 15.2 (12.0-16.0) g/dL Hct 46.0 (36.0-46.0) % MCV 83.2 (80.0-98.0) fL MCH 27.5 (27.0-32.0) pg MCHC 33.0 (31.0-37.0) g/dL RDW Std Deviation 43.6 (28.0-62.0) fl RDW Coeff of Bandar 14 (11.0-15.0) % Plt Count 251 (150-400) K/uL MPV 10.10 (7.40-12.00) fL Neut % (Auto) 73.3 (48.0-80.0) % Lymph % (Auto) 18.6 (16.0-40.0) % [place] % (Auto) 4.8 (0.0-15.0) % Eos % (Auto) 3.0 (0.0-7.0) % Baso % (Auto) 0.3 (0.0-1.5) % Neut # (Auto) 7.2 H (1.4-5.7) K/uL Lymph # (Auto) 1.8 (0.6-2.4) K/uL [place] # (Auto) 0.5 (0.0-0.8) K/uL Eos # (Auto) 0.3 (0.0-0.7) K/uL Baso # (Auto) 0.0 (0.0-0.1) K/uL Nucleated RBC % 0.0 /100WBC Nucleated RBCs # 0 K/uL ESR 4 (0-19) mm/hr C-Reactive Protein 2.20 H (0.00-0.90) mg/dL Meds: Medications Discontinued Medications Generic Name Dose Route Start Last Admin Trade Name Freq PRN Reason Stop Dose Admin Carbamazepine 100 mg 03/07/19 16:03 03/07/19 16:23 Tegretol PO 03/07/19 16:04 100 mg ONETIME ONE Administration Sodium Chloride 1,000 mls @ 999 mls/hr 03/07/19 15:17 03/07/19 15:45 Normal Saline IV 03/07/19 16:17 999 mls/hr STAT ONE Administration Iopamidol 80 ml 03/07/19 16:06 03/07/19 16:07 Isovue Multipack-370 (76%) IVPUSH 03/07/19 16:07 80 ml ONETIME STA Administration Departure - Departure Time of Disposition: 18:29 Disposition: Home, Self-Care 01 Condition: Good Clinical Impression: Facial pain - Discharge Information Referrals: PCP,None [Primary Care Provider] - Forms: ED Department Discharge Additional Instructions: Medication as prescribed Continue Bactrim to completion ER referral to neurology for examination and treatment [facility] - Neurology [address], [address] [place] [address] The following information is given to patients seen in the emergency department who are being discharged to home. This information is to outline your options for follow-up care. We provide all patients seen in our emergency department with a follow-up referral. The need for follow-up, as well as the timing and circumstances, are variable depending upon the specifics of your emergency department visit. If you don't have a primary care physician on staff, we will provide you with a referral. We always advise you to contact your personal physician following an emergency department visit to inform them of the circumstance of the visit and for follow-up with them and/or the need for any referrals to a consulting specialist. The emergency department will also refer you to a specialist when appropriate. This referral assures that you have the opportunity for follow-up care with a specialist. All of these measure are taken in an effort to provide you with optimal care, which includes your follow-up. Under all circumstances we always encourage you to contact your private physician who remains a resource for coordinating your care. When calling for follow-up care, please make the office aware that this follow-up is from your recent emergency room visit. If for any reason you are refused follow-up, please contact the [facility] emergency department at and asked to speak to the emergency department charge nurse.
[2019-03-07] MEDS ORDERED: carBAMazepine 100 MG Tab.Chew PO ONE (16:03)
[2019-03-07] MEDS ORDERED: Iopamidol 755 MG/ML 200 ML Multipack Bottle IVPUSH STA (16:06)
--- NOTE | 2019-03-07 16:59 | CT ---
INDICATION: left sided facial swelling x [address] NECK WITH CONTRAST TECHNIQUE: Axial multidetector CT imaging was performed through the neck following intravenous contrast administration using 80 mL of Isovue 370. Coronal and sagittal reconstructions were generated. Comparison: 03/03/[address] FINDINGS: No definite inflammatory changes are seen in the left face region. There is no fluid collection suggestive of an abscess. The included airway is within normal limits. There are a few mildly enlarged bilateral jugulodigastric, internal jugular chain, and submandibular lymph nodes, similar to the previous exam. The parotid, submandibular, and thyroid glands are unremarkable. Cervical vascular structures are within normal limits. Osseous structures show no significant findings. Included skull base and lung apices are unremarkable. IMPRESSION: 1. No left facial or neck inflammatory changes. No evidence of abscess. 2. Multiple mildly enlarged cervical lymph nodes, possibly reactive. Clinical follow up is suggested. CRUZITO SOLOMON MD [facility] [employer] Dictated by Neno Solomon MD @ 03/07/2019 4:56:20 PM Dictated by: Neno Solomon MD @ 03/07/2019 16:58:39 (Electronically Signed)
== END 2019-03-07 18:50 | disposition home or self-care (01) ==
LOC: MW.ED 14:41
DX: R51 Headache (principal); F41.9 Anxiety disorder, unspecified; F32.9 Major depressive disorder, single episode, unspecified; E66.9 Obesity, unspecified; F17.210 Nicotine dependence, cigarettes, uncomplicated; Z88.5 Allergy status to narcotic agent; Z88.6 Allergy status to analgesic agent; Z91.040 Latex allergy status; Z88.8 Allergy status to other drugs, medicaments and biological substances; Z79.899 Other long term (current) drug therapy; Z87.442 Personal history of urinary calculi; Z68.43 Body mass index [BMI] 50.0-59.9, adult
CPT/HCPCS: 36415; 70491; 85025; 85652; 86140; 96360; 99284; A9270; J7040; Q9967

== ENCOUNTER 2019-05-12 01:29 | Emergency (ER) | payer MEDICAID ==
--- NOTE | 2019-05-12 01:50 | EDM.PDOC ---
ED HPI GENERAL MEDICAL PROBLEM - General Chief Complaint: Flank Pain Stated Complaint: LEFT SIDE PAIN Time Seen by Provider: 05/12/19 01:47 - History of Present Illness INITIAL COMMENTS - FREE TEXT/NARRATIVE: HISTORY AND PHYSICAL: History of present illness: Patient's 28-year-old female history of nephrolithiasis was seen by urology and presents with concern of left flank pain no vomiting chest pain shortness of breath fever chills or other complaints. Review of systems: As per history of present illness and below otherwise all systems reviewed and negative. Past medical history: As per history of present illness and as reviewed below otherwise noncontributory. Surgical history: As per history of present illness and as reviewed below otherwise noncontributory. Social history: No reported history of drug or alcohol abuse. Family history: As per history of present illness and as reviewed below otherwise noncontributory. Physical exam: HEENT: Atraumatic, normocephalic, pupils reactive, negative for conjunctival pallor or scleral icterus, mucous membranes moist, throat clear, neck supple, nontender, trachea midline. Lungs: Clear to auscultation, breath sounds equal bilaterally, chest nontender. Heart: S1S2, regular, negative for clicks, rubs, or JVD. Abdomen: Soft, nondistended, nontender. Negative for masses or hepatosplenomegaly. Negative for costovertebral tenderness. Pelvis: Stable nontender. Genitourinary: Deferred. Rectal: Deferred. Extremities: Atraumatic, negative for cords or calf pain. Neurovascular unremarkable. Neuro: Awake, alert, oriented. Cranial nerves II through XII unremarkable. Cerebellum unremarkable. Motor and sensory unremarkable throughout. Exam nonfocal. Diagnostics: CBC CMP UA UDS hCG CT abdomen and pelvis Therapeutics: Saline 1 L bolus Toradol 30 mg IV Impression: #1 left flank pain Definitive disposition and diagnosis as appropriate pending reevaluation and review of above. left flank Pain Score (Numeric/FACES): 8 - Related Data Allergies Allergy/AdvReac Type Severity Reaction Status Date / Time acetaminophen [From Vicodin] Allergy Irritabilit Verified 05/12/19 01:46 y adhesive Allergy Hives Verified 05/12/19 01:46 hydrocodone [From Vicodin] Allergy Irritabilit Verified 05/12/19 01:46 y latex Allergy Hives Verified 05/12/19 01:46 metoclopramide [From Reglan] Allergy Irritabilit Verified 05/12/19 01:46 y morphine Allergy Other Verified 05/12/19 01:46 promethazine [From Phenergan] Allergy Irritabilit Verified 05/12/19 01:46 y sumatriptan [From Imitrex] Allergy Irritabilit Verified 05/12/19 01:46 y Home Meds: Home Meds FLUoxetine [PROzac] 40 mg PO ASDIRECTED 03/07/19 [History] LORazepam [Ativan] 1 mg PO DAILY PRN 03/07/19 [History] Past Medical History HEENT History: Reports: Impaired Vision, Other (See Below) Other HEENT History: wears glasses Respiratory History: Reports: Asthma, Sleep Apnea Gastrointestinal History: Reports: GERD, Irritable Bowel Syndrome Genitourinary History: Reports: Renal 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 Neurological History: Reports: Migraines Psychiatric History: Reports: Anxiety, Depression Endocrine/Metabolic History: Reports: Obesity/BMI 30+ - Infectious Disease History Infectious Disease History: Reports: None - Past Surgical History Female Surgical History: Reports: Lithotripsy/ESWL, Other (See Below) Other Female Surgeries/Procedures: Nephrostomy Social & Family History - Family History Family Medical History: Noncontributory - Caffeine Use Caffeine Use: Reports: Coffee, Energy Drinks, Soda, Tea ED ROS GENERAL - Review of Systems Review Of Systems: ROS reveals no pertinent complaints other than HPI. ED EXAM, GENERAL - Physical Exam Exam: See Below (See dictation) Course - Vital Signs Last Recorded V/S: Last Vital Signs Temp 35.9 C 05/12/19 01:42 Pulse 88 05/12/19 03:25 Resp 18 05/12/19 03:25 BP 123/63 05/12/19 03:25 Pulse Ox 98 05/12/19 03:25 - Orders/Labs/Meds Labs: Laboratory Tests 05/12/19 05/12/19 05/12/19 Range/Units 01:50 01:52 01:52 WBC 14.93 H (4.0-11.0) K/uL RBC 5.43 (4.30-5.90) M/uL Hgb 15.1 (12.0-16.0) g/dL Hct 45.7 (36.0-46.0) % MCV 84.2 (80.0-98.0) fL MCH 27.8 (27.0-32.0) pg MCHC 33.0 (31.0-37.0) g/dL RDW Std Deviation 44.3 (28.0-62.0) fl RDW Coeff of Bandar 15 (11.0-15.0) % Plt Count 342 (150-400) K/uL MPV 10.60 (7.40-12.00) fL Neut % (Auto) 70.4 (48.0-80.0) % Lymph % (Auto) 24.1 (16.0-40.0) % [place] % (Auto) 3.5 (0.0-15.0) % Eos % (Auto) 1.7 (0.0-7.0) % Baso % (Auto) 0.3 (0.0-1.5) % Neut # (Auto) 10.5 H (1.4-5.7) K/uL Lymph # (Auto) 3.6 H (0.6-2.4) K/uL [place] # (Auto) 0.5 (0.0-0.8) K/uL Eos # (Auto) 0.3 (0.0-0.7) K/uL Baso # (Auto) 0.0 (0.0-0.1) K/uL Nucleated RBC % 0.0 /100WBC Nucleated RBCs # 0 K/uL Sodium (136-145) mmol/L Potassium (3.5-5.1) mmol/L Chloride (98-107) mmol/L Carbon Dioxide (21.0-32.0) mmol/L BUN (7.0-18.0) mg/dL Creatinine (0.6-1.0) mg/dL Est Cr Clr Drug Dosing mL/min Estimated GFR (MDRD) ml/min Glucose (74-106) mg/dL Calcium (8.5-10.1) mg/dL Total Bilirubin (0.2-1.0) mg/dL AST (15-37) IU/L ALT (14-63) IU/L Alkaline Phosphatase (46-116) U/L Total Protein (6.4-8.2) g/dL Albumin (3.4-5.0) g/dL Globulin (2.6-4.0) g/dL Albumin/Globulin Ratio (0.9-1.6) Urine Color YELLOW Urine Appearance CLEAR Urine pH 6.0 (5.0-8.0) Ur Specific [place] 1.015 (1.001-1.035) Urine Protein NEGATIVE (NEGATIVE) mg/dL Urine Glucose (UA) NEGATIVE (NEGATIVE) mg/dL Urine Ketones NEGATIVE (NEGATIVE) mg/dL Urine Occult Blood NEGATIVE (NEGATIVE) Urine Nitrite NEGATIVE (NEGATIVE) Urine Bilirubin NEGATIVE (NEGATIVE) Urine Urobilinogen 0.2 (<2.0) EU/dL Ur Leukocyte Esterase NEGATIVE (NEGATIVE) Urine HCG, Qual (NEGATIVE) Urine Opiates Screen NEGATIVE (NEGATIVE) Ur Oxycodone Screen NEGATIVE (NEGATIVE) Urine Methadone Screen NEGATIVE (NEGATIVE) Ur Barbiturates Screen NEGATIVE (NEGATIVE) Ur Phencyclidine Scrn NEGATIVE (NEGATIVE) Ur Amphetamine Screen NEGATIVE (NEGATIVE) U Methamphetamines Scrn NEGATIVE (NEGATIVE) U Benzodiazepines Scrn NEGATIVE (NEGATIVE) U Cocaine Metab Screen NEGATIVE (NEGATIVE) U Marijuana (THC) Screen NEGATIVE (NEGATIVE) 05/12/19 05/12/19 Range/Units 01:52 01:52 WBC (4.0-11.0) K/uL RBC (4.30-5.90) M/uL Hgb (12.0-16.0) g/dL Hct (36.0-46.0) % MCV (80.0-98.0) fL MCH (27.0-32.0) pg MCHC (31.0-37.0) g/dL RDW Std Deviation (28.0-62.0) fl RDW Coeff of Bandar (11.0-15.0) % Plt Count (150-400) K/uL MPV (7.40-12.00) fL Neut % (Auto) (48.0-80.0) % Lymph % (Auto) (16.0-40.0) % [place] % (Auto) (0.0-15.0) % Eos % (Auto) (0.0-7.0) % Baso % (Auto) (0.0-1.5) % Neut # (Auto) (1.4-5.7) K/uL Lymph # (Auto) (0.6-2.4) K/uL [place] # (Auto) (0.0-0.8) K/uL Eos # (Auto) (0.0-0.7) K/uL Baso # (Auto) (0.0-0.1) K/uL Nucleated RBC % /100WBC Nucleated RBCs # K/uL Sodium 138 (136-145) mmol/L Potassium 4.0 (3.5-5.1) mmol/L Chloride 99 (98-107) mmol/L Carbon Dioxide 24.2 (21.0-32.0) mmol/L BUN 14 (7.0-18.0) mg/dL Creatinine 0.9 (0.6-1.0) mg/dL Est Cr Clr Drug Dosing 83.74 mL/min Estimated GFR (MDRD) > 60.0 ml/min Glucose 197 H (74-106) mg/dL Calcium 9.6 (8.5-10.1) mg/dL Total Bilirubin 0.3 (0.2-1.0) mg/dL AST 15 (15-37) IU/L ALT 32 (14-63) IU/L Alkaline Phosphatase 99 (46-116) U/L Total Protein 7.7 (6.4-8.2) g/dL Albumin 3.4 (3.4-5.0) g/dL Globulin 4.3 H (2.6-4.0) g/dL Albumin/Globulin Ratio 0.8 L (0.9-1.6) Urine Color Urine Appearance Urine pH (5.0-8.0) Ur Specific [place] (1.001-1.035) Urine Protein (NEGATIVE) mg/dL Urine Glucose (UA) (NEGATIVE) mg/dL Urine Ketones (NEGATIVE) mg/dL Urine Occult Blood (NEGATIVE) Urine Nitrite (NEGATIVE) Urine Bilirubin (NEGATIVE) Urine Urobilinogen (<2.0) EU/dL Ur Leukocyte Esterase (NEGATIVE) Urine HCG, Qual NEGATIVE (NEGATIVE) Urine Opiates Screen (NEGATIVE) Ur Oxycodone Screen (NEGATIVE) Urine Methadone Screen (NEGATIVE) Ur Barbiturates Screen (NEGATIVE) Ur Phencyclidine Scrn (NEGATIVE) Ur Amphetamine Screen (NEGATIVE) U Methamphetamines Scrn (NEGATIVE) U Benzodiazepines Scrn (NEGATIVE) U Cocaine Metab Screen (NEGATIVE) U Marijuana (THC) Screen (NEGATIVE) Meds: Medications Discontinued Medications Generic Name Dose Route Start Last Admin Trade Name [place] PRN Reason Stop Dose Admin Sodium Chloride 1,000 mls @ 999 mls/hr 05/12/19 02:00 05/12/19 01:58 Normal Saline IV 999 mls/hr ASDIRECTED JATIN Administration Ketorolac Tromethamine 30 mg 05/12/19 01:52 05/12/19 01:58 Toradol IVPUSH 05/12/19 01:53 30 mg ONETIME ONE Administration Departure - Departure Time of Disposition: 14:18 Disposition: Home, Self-Care 01 Condition: Good Clinical Impression: Flank pain - Discharge Information Instructions: Kidney Stones, [id number] Referrals: Markus Smith MD [Primary Care Provider] - Forms: ED Department Discharge Care Plan Goals: Ff-up with Urologist as discussed
[2019-05-12] MEDS ORDERED: Ketorolac 30 MG/ML SDV IVPUSH ONE (01:52)
[2019-05-12] MEDS ORDERED: Sodium Chloride 0.9% 1,000 ML IV SCH (02:00)
[2019-05-12 02:29] LABS: BLOOD UREA NITROGEN,BUN 14 mg/dL (7.0-18.0); CARBON DIOXIDE,CO2 24.2 mmol/L (21.0-32.0); CHLORIDE,CL 99 mmol/L (98-107); GLUCOSE RANDOM 197 mg/dL (74-106); SODIUM,NA 138 mmol/L (136-145)
--- NOTE | 2019-05-12 03:15 | CT ---
INDICATION: Left flank pain for 1 week TECHNIQUE: CT abdomen and pelvis without contrast. COMPARISON: None. FINDINGS: Lower chest: Minimal bibasilar discoid atelectasis. Liver: Normal in size and attenuation. No masses. Gallbladder and bile ducts: No stones or inflammation. No biliary dilatation. Pancreas: Unremarkable. No mass or inflammation. Spleen: Normal in size. No masses. Adrenal glands: Normal in size. No nodules. Kidneys: Right kidney is normal in contour without hydronephrosis. Nonobstructing stones are present on the left without evidence of hydronephrosis. No ureteral stones seen. GI tract: The stomach is unremarkable. There are no dilated loops of large or small intestine. The appendix is seen and is unremarkable. Vasculature: Unremarkable. Pelvis: Bladder minimally distended and grossly unremarkable. No definite adnexal mass or pelvic free fluid. Bones: Unremarkable for age. IMPRESSION: 1. Nephrolithiasis although without evidence of ureteral stone or hydronephrosis. 2. No acute findings seen. No dilated bowel or focal inflammation. Please note that all CT scans at this facility use dose modulation, iterative reconstruction, and/or weight-based dosing when appropriate to reduce radiation dose to as low as reasonably achievable. Dictated by Gio Jiménez MD @ May 12 2019 3:08AM Signed by Dr. Gio Jiménez @ May 12 2019 3:12AM
== END 2019-05-12 03:40 | disposition home or self-care (01) ==
LOC: MW.ED 01:29
DX: R10.9 Unspecified abdominal pain (principal); F41.9 Anxiety disorder, unspecified; F32.9 Major depressive disorder, single episode, unspecified; E66.9 Obesity, unspecified; Z91.09 Other allergy status, other than to drugs and biological substances; Z88.5 Allergy status to narcotic agent; Z88.8 Allergy status to other drugs, medicaments and biological substances; Z79.899 Other long term (current) drug therapy
CPT/HCPCS: 36415; 74176; 80053; 80305; 81003; 81025; 85025; 96361; 96374; 99284; J1885; J7040

== ENCOUNTER 2019-10-09 10:25 | Emergency (ER) | payer MEDICAID ==
[2019-10-09] MEDS ORDERED: Sodium Chloride 0.9% 1,000 ML IV ONE (11:33)
[2019-10-09 11:58] LABS: BLOOD UREA NITROGEN,BUN 9 mg/dL (7.0-18.0); CHLORIDE,CL 102 mmol/L (98-107); GLUCOSE RANDOM 99 mg/dL (74-106); POTASSIUM,K 3.8 mmol/L (3.5-5.1); SODIUM,NA 140 mmol/L (136-145)
[2019-10-09 12:09] LABS: CARBON DIOXIDE,CO2 24.9 mmol/L (21.0-32.0)
[2019-10-09] MEDS ORDERED: Iopamidol 755 MG/ML 500 ML Multipack Bottle IVPUSH STA (12:39)
--- NOTE | 2019-10-09 13:20 | CT ---
CT abdomen and pelvis Technique: Multiple axial sections were obtained from above the dome of the diaphragm inferiorly through the pubic symphysis. Intravenous contrast was utilized. No oral contrast has been given. Findings: Visualized lung bases show nothing acute. Liver contains no focal abnormality. Spleen appears within normal limits. Possible bowel wall thickening within the stomach is noted. Adrenal glands show no nodule. Kidneys show symmetric contrast enhancement. Nonobstructing lower pole calculus is noted within the left kidney measuring 9 mm. No ureteral dilatation is seen. No abnormal calcifications are seen along the course of the ureters. Pancreas appears within normal limits. Gallbladder contains no calcified gallstones. Aorta shows no aneurysm. No retroperitoneal adenopathy or mesenteric abnormalities are seen. No pelvic mass or adenopathy is seen. No free fluid is seen. No inflammatory change is seen. Appendix is seen which is normal in size. Bone window settings were reviewed. Minimal degenerative change is noted within the spine. No acute osseous finding is seen. Impression: 1. Possible bowel wall thickening within the stomach. This is difficult to confirm without distention from contrast. Please correlate if patient has any symptoms to suggest gastritis. 2. 9 mm nonobstructing calculus within the lower left kidney. 3. No acute abnormality otherwise is seen on CT study of the abdomen and pelvis. Diagnostic code #3 This report was dictated in [place] Standard Time
--- NOTE | 2019-10-09 13:20 | EDM.PDOC ---
ED HPI GENERAL MEDICAL PROBLEM - General Chief Complaint: Abdominal Pain Stated Complaint: PAIN UNDER RIBS Time Seen by Provider: 10/09/19 13:18 Source of Information: Reports: Patient - History of Present Illness INITIAL COMMENTS - FREE TEXT/NARRATIVE: HISTORY AND PHYSICAL: History of present illness: [Presents with left-sided abdominal pain 5 out of 10 nonradiating she states upper quadrant however on exam she is tender in the lower quadrant no guarding or rebound no fever chills or sweats she does complain of loose watery stools since last night no blood or mucus in the stool ] Review of systems: As per history of present illness and below otherwise all systems reviewed and negative. Past medical history: As per history of present illness and as reviewed below otherwise noncontributory. Surgical history: As per history of present illness and as reviewed below otherwise noncontributory. Social history: No reported history of drug or alcohol abuse. Family history: As per history of present illness and as reviewed below otherwise noncontributory. Physical exam: HEENT: Atraumatic, normocephalic, pupils reactive, negative for conjunctival pallor or scleral icterus, mucous membranes moist, throat clear, neck supple, nontender, trachea midline. Lungs: Clear to auscultation, breath sounds equal bilaterally, chest nontender. Heart: S1S2, regular, negative for clicks, rubs, or JVD. Abdomen: Soft, nondistended, nontender on right abdomen the left is tender in the left lower quadrant no guarding or rebound tenderness. Negative for masses or hepatosplenomegaly. Negative for costovertebral tenderness. Pelvis: Stable nontender. Genitourinary: Deferred. Rectal: Deferred. Extremities: Atraumatic, negative for cords or calf pain. Neurovascular unremarkable. Neuro: Awake, alert, oriented. Cranial nerves II through XII unremarkable. Cerebellum unremarkable. Motor and sensory unremarkable throughout. Exam nonfocal. Diagnostics: [cbc CMP UA hCG CT abdomen pelvis with contrast ] Therapeutics: [Zofran Saline #10 percocet #10no rf ] Impression: [Gastroenteritis] 9mm nonobstructing stone Abdominal pain Definitive disposition and diagnosis as appropriate pending reevaluation and review of above. left upper abd Pain Score (Numeric/FACES): 7 - Related Data Allergies Allergy/AdvReac Type Severity Reaction Status Date / Time acetaminophen [From Vicodin] Allergy Irritabilit Verified 05/12/19 01:46 y adhesive Allergy Hives Verified 05/12/19 01:46 hydrocodone [From Vicodin] Allergy Irritabilit Verified 05/12/19 01:46 y latex Allergy Hives Verified 05/12/19 01:46 metoclopramide [From Reglan] Allergy Irritabilit Verified 05/12/19 01:46 y morphine Allergy Other Verified 05/12/19 01:46 promethazine [From Phenergan] Allergy Irritabilit Verified 05/12/19 01:46 y sumatriptan [From Imitrex] Allergy Irritabilit Verified 05/12/19 01:46 y Home Meds: Home Meds . 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: Polycystic Ovaries Neurological History: Reports: Migraines Psychiatric History: Reports: Anxiety, Depression Endocrine/Metabolic History: Reports: Obesity/BMI 30+ - Infectious Disease History Infectious Disease History: Reports: None - Past Surgical History Female Surgical History: Reports: Lithotripsy/ESWL, Other (See Below) Other Female Surgeries/Procedures: Nephrostomy Social & Family History - Family History Family Medical History: Noncontributory - Tobacco Use Smoking Status *Q: Current Every Day Smoker Years of Tobacco use: 10 Packs/Tins Daily: 0.5 - Caffeine Use Caffeine Use: Reports: Coffee, Energy Drinks, Soda, Tea - Recreational Drug Use Recreational Drug Use: No ED ROS GENERAL - Review of Systems Review Of Systems: See Below ED EXAM, GENERAL - Physical Exam Exam: See Below Course - Vital Signs Last Recorded V/S: Last Vital Signs Temp 98 F 10/09/19 10:36 Pulse 96 10/09/19 10:36 Resp 18 10/09/19 10:36 BP 170/106 H 10/09/19 10:36 Pulse Ox 97 10/09/19 10:36 - Orders/Labs/Meds Labs: Laboratory Tests 10/09/19 10/09/19 10/09/19 Range/Units 10:45 11:19 11:19 WBC 11.71 H (4.0-11.0) K/uL RBC 5.41 (4.30-5.90) M/uL Hgb 14.4 (12.0-16.0) g/dL Hct 43.3 (36.0-46.0) % MCV 80.0 (80.0-98.0) fL MCH 26.6 L (27.0-32.0) pg MCHC 33.3 (31.0-37.0) g/dL RDW Std Deviation 44.5 (28.0-62.0) fl RDW Coeff of Bandar 16 H (11.0-15.0) % Plt Count 277 (150-400) K/uL MPV 11.00 (7.40-12.00) fL Neut % (Auto) 68.3 (48.0-80.0) % Lymph % (Auto) 23.4 (16.0-40.0) % [place] % (Auto) 6.5 (0.0-15.0) % Eos % (Auto) 1.5 (0.0-7.0) % Baso % (Auto) 0.3 (0.0-1.5) % Neut # (Auto) 8.0 H (1.4-5.7) K/uL Lymph # (Auto) 2.7 H (0.6-2.4) K/uL [place] # (Auto) 0.8 (0.0-0.8) K/uL Eos # (Auto) 0.2 (0.0-0.7) K/uL Baso # (Auto) 0.0 (0.0-0.1) K/uL Nucleated RBC % 0.0 /100WBC Nucleated RBCs # 0 K/uL Sodium 140 (136-145) mmol/L Potassium 3.8 (3.5-5.1) mmol/L Chloride 102 (98-107) mmol/L Carbon Dioxide 24.9 (21.0-32.0) mmol/L BUN 9 (7.0-18.0) mg/dL Creatinine 0.7 (0.6-1.0) mg/dL Est Cr Clr Drug Dosing 106.70 mL/min Estimated GFR (MDRD) > 60.0 ml/min Glucose 99 (74-106) mg/dL Calcium 9.0 (8.5-10.1) mg/dL Total Bilirubin 0.4 (0.2-1.0) mg/dL AST 18 (15-37) IU/L ALT 34 (14-63) IU/L Alkaline Phosphatase 93 (46-116) U/L Total Protein 7.3 (6.4-8.2) g/dL Albumin 3.5 (3.4-5.0) g/dL Globulin 3.8 (2.6-4.0) g/dL Albumin/Globulin Ratio 0.9 (0.9-1.6) Triglycerides 196 (0-200) mg/dL Cholesterol 149 (50-200) mg/dL LDL Cholesterol, Calc 75 (60-180) mg/dL VLDL Cholesterol 39 (5-55) mg/dL HDL Cholesterol 35 L (40-60) mg/dL Cholesterol/HDL Ratio 4.3 (3.3-6.0) Lipase (73-393) U/L HCG, Qual NEGATIVE (NEG) Urine Color Urine Appearance Urine pH (5.0-8.0) Ur Specific Bim (1.001-1.035) Urine Protein (NEGATIVE) mg/dL Urine Glucose (UA) (NEGATIVE) mg/dL Urine Ketones (NEGATIVE) mg/dL Urine Occult Blood (NEGATIVE) Urine Nitrite (NEGATIVE) Urine Bilirubin (NEGATIVE) Urine Urobilinogen (<2.0) EU/dL Ur Leukocyte Esterase (NEGATIVE) 10/09/19 10/09/19 Range/Units 11:19 11:55 WBC (4.0-11.0) K/uL RBC (4.30-5.90) M/uL Hgb (12.0-16.0) g/dL Hct (36.0-46.0) % MCV (80.0-98.0) fL MCH (27.0-32.0) pg MCHC (31.0-37.0) g/dL RDW Std Deviation (28.0-62.0) fl RDW Coeff of Bandar (11.0-15.0) % Plt Count (150-400) K/uL MPV (7.40-12.00) fL Neut % (Auto) (48.0-80.0) % Lymph % (Auto) (16.0-40.0) % [place] % (Auto) (0.0-15.0) % Eos % (Auto) (0.0-7.0) % Baso % (Auto) (0.0-1.5) % Neut # (Auto) (1.4-5.7) K/uL Lymph # (Auto) (0.6-2.4) K/uL [place] # (Auto) (0.0-0.8) K/uL Eos # (Auto) (0.0-0.7) K/uL Baso # (Auto) (0.0-0.1) K/uL Nucleated RBC % /100WBC Nucleated RBCs # K/uL Sodium (136-145) mmol/L Potassium (3.5-5.1) mmol/L Chloride (98-107) mmol/L Carbon Dioxide (21.0-32.0) mmol/L BUN (7.0-18.0) mg/dL Creatinine (0.6-1.0) mg/dL Est Cr Clr Drug Dosing mL/min Estimated GFR (MDRD) ml/min Glucose (74-106) mg/dL Calcium (8.5-10.1) mg/dL Total Bilirubin (0.2-1.0) mg/dL AST (15-37) IU/L ALT (14-63) IU/L Alkaline Phosphatase (46-116) U/L Total Protein (6.4-8.2) g/dL Albumin (3.4-5.0) g/dL Globulin (2.6-4.0) g/dL Albumin/Globulin Ratio (0.9-1.6) Triglycerides (0-200) mg/dL Cholesterol (50-200) mg/dL LDL Cholesterol, Calc (60-180) mg/dL VLDL Cholesterol (5-55) mg/dL HDL Cholesterol (40-60) mg/dL Cholesterol/HDL Ratio (3.3-6.0) Lipase 84 (73-393) U/L HCG, Qual (NEG) Urine Color YELLOW Urine Appearance CLEAR Urine pH 6.5 (5.0-8.0) Ur Specific Bim 1.025 (1.001-1.035) Urine Protein NEGATIVE (NEGATIVE) mg/dL Urine Glucose (UA) NEGATIVE (NEGATIVE) mg/dL Urine Ketones NEGATIVE (NEGATIVE) mg/dL Urine Occult Blood NEGATIVE (NEGATIVE) Urine Nitrite NEGATIVE (NEGATIVE) Urine Bilirubin NEGATIVE (NEGATIVE) Urine Urobilinogen 0.2 (<2.0) EU/dL Ur Leukocyte Esterase NEGATIVE (NEGATIVE) Meds: Medications Discontinued Medications Generic Name Dose Route Start Last Admin Trade Name Anusha PRN Reason Stop Dose Admin Al Hydroxide/Mg Hydroxide 15 0 ml 10/09/19 13:34 10/09/19 13:41 ml/ Lidocaine HCl 5 ml PO 10/09/19 13:35 1 each ONETIME ONE Administration Sodium Chloride 1,000 mls @ 999 mls/hr 10/09/19 11:33 10/09/19 11:51 Normal Saline IV 10/09/19 12:33 999 mls/hr STAT ONE Administration Iopamidol 100 ml 10/09/19 12:39 10/09/19 12:39 Isovue Multipack-370 (76%) IVPUSH 10/09/19 12:40 100 ml ONETIME STA Administration Departure - Departure Time of Disposition: 14:17 Disposition: Home, Self-Care 01 Condition: Good Clinical Impression: Abdominal pain, Gastroenteritis - Discharge Information Referrals: Markus Smith MD [Primary Care Provider] - Forms: ED Department Discharge Additional Instructions: The following information is given to patients seen in the emergency department who are being discharged to home. This information is to outline your options for follow-up care. We provide all patients seen in our emergency department with a follow-up referral. The need for follow-up, as well as the timing and circumstances, are variable depending upon the specifics of your emergency department visit. If you don't have a primary care physician on staff, we will provide you with a referral. We always advise you to contact your personal physician following an emergency department visit to inform them of the circumstance of the visit and for follow-up with them and/or the need for any referrals to a consulting specialist. The emergency department will also refer you to a specialist when appropriate. This referral assures that you have the opportunity for follow-up care with a specialist. All of these measure are taken in an effort to provide you with optimal care, which includes your follow-up. Under all circumstances we always encourage you to contact your private physician who remains a resource for coordinating your care. When calling for follow-up care, please make the office aware that this follow-up is from your recent emergency room visit. If for any reason you are refused follow-up, please contact the [facility] emergency department at and asked to speak to the emergency department charge nurse. Sepsis Event Note - Evaluation Sepsis Screening Result: No Definite Risk - Focused Exam Vital Signs: Vital Signs Temp Pulse Resp BP Pulse Ox 10/09/19 10:36 98 F 96 18 170/106 H 97 Date Exam was Performed: 10/09/19 Time Exam was Performed: 14:15
[2019-10-09] MEDS ORDERED: Alum Hydrox/Mag Hydrox/Simeth 15 ML, Lidocaine 2% 5 ML PO ONE ×2 (13:34)
== END 2019-10-09 14:30 | disposition home or self-care (01) ==
LOC: MW.ED 10:25
DX: K52.9 Noninfective gastroenteritis and colitis, unspecified (principal); N20.0 Calculus of kidney; E66.9 Obesity, unspecified; F17.210 Nicotine dependence, cigarettes, uncomplicated; Z91.09 Other allergy status, other than to drugs and biological substances; Z88.5 Allergy status to narcotic agent; Z91.040 Latex allergy status; Z88.8 Allergy status to other drugs, medicaments and biological substances
CPT/HCPCS: 36415; 74177; 80053; 80061; 81003; 83690; 84703; 85025; 96360; 96361; 99284; A9270; J7030; Q9967

== ENCOUNTER 2019-11-11 11:32 | Emergency (ER) | payer MEDICAID ==
[2019-11-11] MEDS ORDERED: Sodium Chloride 0.9% 10 ML Syringe FLUSH PRN (11:55)
[2019-11-11] MEDS ORDERED: Sodium Chloride 0.9% 1,000 ML IV ONE (11:55)
[2019-11-11] MEDS ORDERED: Ondansetron 4 MG/2 ML SDV IVPUSH ONE (11:55)
[2019-11-11] MEDS ORDERED: Sodium Chloride 0.9% 2.5 ML Syringe FLUSH PRN (11:55)
--- NOTE | 2019-11-11 11:59 | EDM.PDOC ---
ED HPI GENERAL MEDICAL PROBLEM - General Chief Complaint: Abdominal Pain Stated Complaint: ABDOMINAL PAIN Time Seen by Provider: 11/11/19 11:50 Source of Information: Reports: Patient History Limitations: Reports: No Limitations - History of Present Illness INITIAL COMMENTS - FREE TEXT/NARRATIVE: Pt with no pmh presents with right lower quardant abdominal pain associated with nausea for 3 days. pain is stabbing and progressively worsening. Right Lower Abdomen Pain Score (Numeric/FACES): 3 - Related Data Allergies Allergy/AdvReac Type Severity Reaction Status Date / Time acetaminophen [From Vicodin] Allergy Irritabilit Verified 11/11/19 11:42 y adhesive Allergy Hives Verified 11/11/19 11:42 hydrocodone [From Vicodin] Allergy Irritabilit Verified 11/11/19 11:42 y latex Allergy Hives Verified 11/11/19 11:42 metoclopramide [From Reglan] Allergy Irritabilit Verified 11/11/19 11:42 y promethazine [From Phenergan] Allergy Irritabilit Verified 11/11/19 11:42 y sumatriptan [From Imitrex] Allergy Irritabilit Verified 11/11/19 11:42 y Home Meds: Home Meds . 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 Neurological History: Reports: Migraines Psychiatric History: Reports: Anxiety, Depression Endocrine/Metabolic History: Reports: Obesity/BMI 30+ - Infectious Disease History Infectious Disease History: Reports: Chicken Pox - Past Surgical History Female Surgical History: Reports: Lithotripsy/ESWL, Other (See Below) Other Female Surgeries/Procedures: Nephrostomy Social & Family History - Family History Family Medical History: Noncontributory - Tobacco Use Smoking Status *Q: Current Every Day Smoker Years of Tobacco use: 11 Packs/Tins Daily: 0.5 - Caffeine Use Caffeine Use: Reports: Coffee - Recreational Drug Use Recreational Drug Use: No ED ROS GENERAL - Review of Systems Review Of Systems: See Below Constitutional: Denies: Fever Respiratory: Reports: No Symptoms Cardiovascular: Reports: No Symptoms GI/Abdominal: Reports: Abdominal Pain, Nausea Skin: Reports: No Symptoms ED EXAM, GI/ABD - Physical Exam Exam: See Below Exam Limited By: No Limitations General Appearance: Alert, WD/WN, No Apparent Distress Head: Atraumatic, Normocephalic Respiratory/Chest: No Respiratory Distress, Lungs Clear, Normal Breath Sounds Cardiovascular: Regular Rate, Rhythm, No Murmur GI/Abdominal Exam: Soft, No Distention, Tender (RLQ) Neurological: Alert, Oriented, Normal Cognition Skin Exam: Warm, Dry, Intact Course - Vital Signs Last Recorded V/S: Last Vital Signs Temp 97.7 F 11/11/19 15:03 Pulse 87 11/11/19 15:03 Resp 17 11/11/19 15:03 BP 163/88 H 11/11/19 15:03 Pulse Ox 95 11/11/19 15:03 - Orders/Labs/Meds Labs: Laboratory Tests 11/11/19 11/11/19 11/11/19 Range/Units 11:49 11:49 12:22 WBC 11.67 H (4.0-11.0) K/uL RBC 5.52 (4.30-5.90) M/uL Hgb 14.5 (12.0-16.0) g/dL Hct 45.7 (36.0-46.0) % MCV 82.8 (80.0-98.0) fL MCH 26.3 L (27.0-32.0) pg MCHC 31.7 (31.0-37.0) g/dL RDW Std Deviation 45.5 (28.0-62.0) fl RDW Coeff of Bandar 15 (11.0-15.0) % Plt Count 274 (150-400) K/uL MPV 10.10 (7.40-12.00) fL Neut % (Auto) 72.3 (48.0-80.0) % Lymph % (Auto) 21.2 (16.0-40.0) % [place] % (Auto) 4.7 (0.0-15.0) % Eos % (Auto) 1.5 (0.0-7.0) % Baso % (Auto) 0.3 (0.0-1.5) % Neut # (Auto) 8.5 H (1.4-5.7) K/uL Lymph # (Auto) 2.5 H (0.6-2.4) K/uL [place] # (Auto) 0.6 (0.0-0.8) K/uL Eos # (Auto) 0.2 (0.0-0.7) K/uL Baso # (Auto) 0.0 (0.0-0.1) K/uL Nucleated RBC % 0.0 /100WBC Nucleated RBCs # 0 K/uL Sodium (136-145) mmol/L Potassium (3.5-5.1) mmol/L Chloride (98-107) mmol/L Carbon Dioxide (21.0-32.0) mmol/L BUN (7.0-18.0) mg/dL Creatinine (0.6-1.0) mg/dL Est Cr Clr Drug Dosing mL/min Estimated GFR (MDRD) ml/min Glucose (74-106) mg/dL Calcium (8.5-10.1) mg/dL Total Bilirubin (0.2-1.0) mg/dL AST (15-37) IU/L ALT (14-63) IU/L Alkaline Phosphatase (46-116) U/L Total Protein (6.4-8.2) g/dL Albumin (3.4-5.0) g/dL Globulin (2.6-4.0) g/dL Albumin/Globulin Ratio (0.9-1.6) Lipase (73-393) U/L Urine Color YELLOW Urine Appearance CLEAR Urine pH 7.0 (5.0-8.0) Ur Specific [place] 1.020 (1.001-1.035) Urine Protein NEGATIVE (NEGATIVE) mg/dL Urine Glucose (UA) NEGATIVE (NEGATIVE) mg/dL Urine Ketones NEGATIVE (NEGATIVE) mg/dL Urine Occult Blood NEGATIVE (NEGATIVE) Urine Nitrite NEGATIVE (NEGATIVE) Urine Bilirubin NEGATIVE (NEGATIVE) Urine Urobilinogen 0.2 (<2.0) EU/dL Ur Leukocyte Esterase NEGATIVE (NEGATIVE) Urine RBC 0-2 (0-2/HPF) Urine WBC 0-2 (0-5/HPF) Ur Epithelial Cells RARE (NONE-FEW) Urine Bacteria RARE (NEGATIVE) Urine HCG, Qual NEGATIVE (NEGATIVE) 11/11/19 Range/Units 12:22 WBC (4.0-11.0) K/uL RBC (4.30-5.90) M/uL Hgb (12.0-16.0) g/dL Hct (36.0-46.0) % MCV (80.0-98.0) fL MCH (27.0-32.0) pg MCHC (31.0-37.0) g/dL RDW Std Deviation (28.0-62.0) fl RDW Coeff of Bandar (11.0-15.0) % Plt Count (150-400) K/uL MPV (7.40-12.00) fL Neut % (Auto) (48.0-80.0) % Lymph % (Auto) (16.0-40.0) % [place] % (Auto) (0.0-15.0) % Eos % (Auto) (0.0-7.0) % Baso % (Auto) (0.0-1.5) % Neut # (Auto) (1.4-5.7) K/uL Lymph # (Auto) (0.6-2.4) K/uL [place] # (Auto) (0.0-0.8) K/uL Eos # (Auto) (0.0-0.7) K/uL Baso # (Auto) (0.0-0.1) K/uL Nucleated RBC % /100WBC Nucleated RBCs # K/uL Sodium 138 (136-145) mmol/L Potassium 4.1 (3.5-5.1) mmol/L Chloride 103 (98-107) mmol/L Carbon Dioxide 25.1 (21.0-32.0) mmol/L BUN 8 (7.0-18.0) mg/dL Creatinine 0.7 (0.6-1.0) mg/dL Est Cr Clr Drug Dosing 106.70 mL/min Estimated GFR (MDRD) > 60.0 ml/min Glucose 106 (74-106) mg/dL Calcium 8.9 (8.5-10.1) mg/dL Total Bilirubin 0.5 (0.2-1.0) mg/dL AST 20 (15-37) IU/L ALT 32 (14-63) IU/L Alkaline Phosphatase 88 (46-116) U/L Total Protein 7.8 (6.4-8.2) g/dL Albumin 3.4 (3.4-5.0) g/dL Globulin 4.4 H (2.6-4.0) g/dL Albumin/Globulin Ratio 0.8 L (0.9-1.6) Lipase 67 L (73-393) U/L Urine Color Urine Appearance Urine pH (5.0-8.0) Ur Specific [place] (1.001-1.035) Urine Protein (NEGATIVE) mg/dL Urine Glucose (UA) (NEGATIVE) mg/dL Urine Ketones (NEGATIVE) mg/dL Urine Occult Blood (NEGATIVE) Urine Nitrite (NEGATIVE) Urine Bilirubin (NEGATIVE) Urine Urobilinogen (<2.0) EU/dL Ur Leukocyte Esterase (NEGATIVE) Urine RBC (0-2/HPF) Urine WBC (0-5/HPF) Ur Epithelial Cells (NONE-FEW) Urine Bacteria (NEGATIVE) Urine HCG, Qual (NEGATIVE) Meds: Medications Discontinued Medications Generic Name Dose Route Start Last Admin Trade Name Freq PRN Reason Stop Dose Admin Sodium Chloride 1,000 mls @ 999 mls/hr 11/11/19 11:55 11/11/19 12:18 Normal Saline IV 11/11/19 12:55 999 mls/hr BOLUS ONE Administration Iopamidol 100 ml 11/11/19 13:37 11/11/19 13:38 Isovue Multipack-370 (76%) IVPUSH 11/11/19 13:38 100 ml ONETIME ONE Administration Ketorolac Tromethamine 30 mg 11/11/19 14:16 11/11/19 14:30 Toradol IVPUSH 11/11/19 14:17 30 mg ONETIME ONE Administration Ondansetron HCl 4 mg 11/11/19 11:55 11/11/19 12:18 Zofran IVPUSH 11/11/19 11:56 4 mg ONETIME ONE Administration Sodium Chloride 10 ml 11/11/19 11:55 Saline Flush FLUSH ASDIRECTED PRN Keep Vein Open Sodium Chloride 2.5 ml 11/11/19 11:55 Saline Flush FLUSH ASDIRECTED PRN Keep Vein Open - Re-Assessments/Exams Free Text/Narrative Re-Assessment/Exam: VS stable and PE benign. ED work up clinically unremarkable. Results discussed in detail with pt. Pt improved with ED therapy and is comfortable with discharge. Strict return precautions discussed should symptoms worsen or any concerns arise. Departure - Departure Time of Disposition: 14:50 Disposition: Home, Self-Care 01 Condition: Good Clinical Impression: Abdominal pain - Discharge Information *PRESCRIPTION DRUG MONITORING PROGRAM REVIEWED*: Not Applicable *COPY OF PRESCRIPTION DRUG MONITORING REPORT IN PATIENT LEONELA: Not Applicable Instructions: Abdominal Pain, Adult, [id number] Referrals: Markus Smith MD [Primary Care Provider] - Forms: ED Department Discharge Additional Instructions: My general discharge The following information is given to patients seen in the emergency department who are being discharged to home. This information is to outline your options for follow-up care. We provide all patients seen in our emergency department with a follow-up referral. The need for follow-up, as well as the timing and circumstances, are variable depending upon the specifics of your emergency department visit. If you don't have a primary care physician on staff, we will provide you with a referral. We always advise you to contact your personal physician following an emergency department visit to inform them of the circumstance of the visit and for follow-up with them and/or the need for any referrals to a consulting specialist. The emergency department will also refer you to a specialist when appropriate. This referral assures that you have the opportunity for follow-up care with a specialist. All of these measure are taken in an effort to provide you with optimal care, which includes your follow-up. Under all circumstances we always encourage you to contact your private physician who remains a resource for coordinating your care. When calling for follow-up care, please make the office aware that this follow-up is from your recent emergency room visit. If for any reason you are refused follow-up, please contact the [facility] Emergency Department at and asked to speak to the emergency department charge nurse. Sepsis Event Note - Evaluation Sepsis Screening Result: No Definite Risk - Focused Exam Date Exam was Performed: 11/13/19 Time Exam was Performed: 11:42
[2019-11-11 12:48] LABS: CARBON DIOXIDE,CO2 25.1 mmol/L (21.0-32.0); CHLORIDE,CL 103 mmol/L (98-107); POTASSIUM,K 4.1 mmol/L (3.5-5.1); SODIUM,NA 138 mmol/L (136-145)
[2019-11-11 13:06] LABS: BLOOD UREA NITROGEN,BUN 8 mg/dL (7.0-18.0); GLUCOSE RANDOM 106 mg/dL (74-106); LIPASE 67 U/L (73-393)
[2019-11-11] MEDS ORDERED: Iopamidol 755 MG/ML 200 ML Multipack Bottle IVPUSH ONE (13:37)
--- NOTE | 2019-11-11 13:55 | CT ---
CT abdomen and pelvis Technique: Multiple axial sections were obtained from above the dome of the diaphragm inferiorly through the pubic symphysis. Intravenous contrast was utilized. Comparison: Prior CT abdomen and pelvis study of 10/09/19. Findings: Visualized lung bases show nothing acute. Liver contains no focal parenchymal abnormality. Spleen appears within normal limits. Kidneys show no hydronephrosis or mass. Several adjacent nonobstructing calculi are seen within the lower left kidney. Pancreas appears normal. Stomach wall again appears is questionably thickened which is difficult to confirm without having the stomach distended with contrast. Pancreas shows no discrete abnormality. Aorta shows no aneurysm. No retroperitoneal adenopathy or mesenteric abnormalities are seen. No pelvic mass or adenopathy is appreciated. No free fluid is seen. No inflammatory change is appreciated. Appendix felt to be visualized and is normal in size. Bone window settings were reviewed which appear within normal limits for the patient's age. Impression: 1. Questionable wall thickening within the stomach remains as described on prior CT exam. 2. Stable nonobstructing calculi within the lower left kidney. 3. Nothing acute is otherwise seen on CT study of the abdomen and pelvis. Diagnostic code #3 This report was dictated in [place] Standard Time
[2019-11-11] MEDS ORDERED: Ketorolac 30 MG/ML SDV IVPUSH ONE (14:16)
== END 2019-11-11 15:03 | disposition home or self-care (01) ==
LOC: MW.ED 11:32
DX: R10.31 Right lower quadrant pain (principal); J45.909 Unspecified asthma, uncomplicated; G43.909 Migraine, unspecified, not intractable, without status migrainosus; E66.9 Obesity, unspecified; F17.210 Nicotine dependence, cigarettes, uncomplicated; Z68.42 Body mass index [BMI] 45.0-49.9, adult; Z91.040 Latex allergy status; Z88.8 Allergy status to other drugs, medicaments and biological substances; Z91.09 Other allergy status, other than to drugs and biological substances
CPT/HCPCS: 36415; 74177; 80053; 81001; 81025; 83690; 85025; 96361; 96374; 96375; 99284; J1885; J2405; J7030; Q9967

== ENCOUNTER 2020-02-06 07:45 | Emergency (ER) | payer BC, MEDICAID ==
[2020-02-06] MEDS ORDERED: Sodium Chloride 0.9% 2.5 ML Syringe FLUSH PRN ×2 (08:08)
[2020-02-06] MEDS ORDERED: Ondansetron 4 MG/2 ML SDV IVPUSH ONE (08:08)
[2020-02-06] MEDS ORDERED: Sodium Chloride 0.9% 1,000 ML IV ONE (08:08)
[2020-02-06] MEDS ORDERED: Sodium Chloride 0.9% 10 ML Syringe FLUSH PRN (08:08)
[2020-02-06] MEDS ORDERED: Ketorolac 30 MG/ML SDV IVPUSH ONE (08:08)
--- NOTE | 2020-02-06 08:24 | EDM.PDOC ---
ED HPI GENERAL MEDICAL PROBLEM - General Chief Complaint: Genitourinary Problem Stated Complaint: POSSIBLE KIDNEY STONES Time Seen by Provider: 02/06/20 07:52 - History of Present Illness INITIAL COMMENTS - FREE TEXT/NARRATIVE: History of present illness: [Patient presents with left flank pain that awakened her at 4 in the morning. She has an extensive history of severe renal calculi with complications. She says this feels like her typical kidney stone but usually she can become comfortable enough to function with some Tylenol or Motrin and this has not helped her this morning she is nauseous but she has not vomited no fever no chills no blood in her urine nothing seems to make it better. Nothing makes it worse history of 14 lithotripsies as well as some robotic surgeries for removing stones as well as a nephrostomy in the past.] Review of systems: As per history of present illness and below otherwise all systems reviewed and negative. Past medical history: As per history of present illness and as reviewed below otherwise noncontributory. Surgical history: As per history of present illness and as reviewed below otherwise noncontributory. Social history: No reported history of drug or alcohol abuse. Family history: As per history of present illness and as reviewed below otherwise noncontributory. Physical exam: HEENT: Atraumatic, normocephalic, pupils reactive, negative for conjunctival pallor or scleral icterus, mucous membranes moist, throat clear, neck supple, nontender, trachea midline. Lungs: Clear to auscultation, breath sounds equal bilaterally, chest nontender. Heart: S1S2, regular, negative for clicks, rubs, or JVD. Abdomen: Soft, nondistended, nontender. Negative for masses or hepatosplenomegaly. Left CVA tenderness Genitourinary: Deferred. Rectal: Deferred. Extremities: Atraumatic, negative for cords or calf pain. Neurovascular unremarkable. Neuro: Awake, alert, oriented. Cranial nerves II through XII unremarkable. Cerebellum unremarkable. Motor and sensory unremarkable throughout. Exam nonfocal. Diagnostics: [] Therapeutics: [] Impression: Renal colic [] Plan: Patient will be given some analgesia and fluids. Labs and urine will be sent and she will be reassessed [] Definitive disposition and diagnosis as appropriate pending reevaluation and review of above. Left Back Pain Score (Numeric/FACES): 7 - Related Data Allergies Allergy/AdvReac Type Severity Reaction Status Date / Time adhesive Allergy Hives Verified 02/06/20 08:05 hydrocodone [From Vicodin] Allergy Irritabilit Verified 02/06/20 08:05 y latex Allergy Hives Verified 02/06/20 08:05 metoclopramide [From Reglan] Allergy Irritabilit Verified 02/06/20 08:05 y promethazine [From Phenergan] Allergy Irritabilit Verified 02/06/20 08:05 y sumatriptan [From Imitrex] Allergy Irritabilit Verified 02/06/20 08:05 y Home Meds: Home Meds Naproxen Sodium [Anaprox DS] 550 mg PO BID #20 tab 02/06/20 [Rx] Ondansetron [Zofran ODT] 4 mg PO Q6H PRN 5 Days #12 tab.dis 02/06/20 [Rx] Tamsulosin [Flomax] 0.4 mg PO DAILY 10 Days #10 cap.er 02/06/20 [Rx] oxyCODONE HCl/Acetaminophen [Percocet 5-325 mg Tablet] 1 each PO Q8HR #12 tablet 02/06/20 [Rx] Past Medical History HEENT History: Reports: Impaired Vision, Other (See Below) Other HEENT History: wears glasses Cardiovascular History: Reports: None Respiratory History: Reports: Asthma, Sleep Apnea Gastrointestinal History: Reports: GERD, Irritable Bowel Syndrome Genitourinary History: Reports: Renal Calculus 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 BURNISHER History: Reports: Polycystic Ovaries Musculoskeletal History: Reports: None Neurological History: Reports: Migraines Psychiatric History: Reports: Anxiety, Bipolar, Depression Endocrine/Metabolic History: Reports: Obesity/BMI 30+ Hematologic History: Reports: None Immunologic History: Reports: None Oncologic (Cancer) History: Reports: None Dermatologic History: Reports: None - Infectious Disease History Infectious Disease History: Reports: Chicken Pox - Past Surgical History Head Surgeries/Procedures: Reports: None Female Surgical History: Reports: Lithotripsy/ESWL, Other (See Below) Other Female Surgeries/Procedures: Nephrostomy, ureterscopy Social & Family History - Family History Family Medical History: Noncontributory - Tobacco Use Smoking Status *Q: Current Every Day Smoker Years of Tobacco use: 11 Packs/Tins Daily: 0.5 - Caffeine Use Caffeine Use: Reports: Coffee - Recreational Drug Use Recreational Drug Use: Yes Drug Use in Last 12 Months: Yes Recreational Drug Type: Reports: Marijuana/Hashish Recreational Drug Use Frequency: Rarely ED ROS GENERAL - Review of Systems Review Of Systems: See Below ED EXAM, GENERAL - Physical Exam Exam: See Below Course - Vital Signs Text/Narrative:: Patient was treated with Toradol Zofran and a couple doses of morphine her pain had improved to the point where she wanted to go home she will be discharged home on tamsulosin Zofran Percocet and naproxen she is going to follow-up with a urologist in [facility]. Last Recorded V/S: Last Vital Signs Temp 36.4 C 02/06/20 07:57 Pulse 91 02/06/20 09:39 Resp 22 H 02/06/20 08:52 BP 127/93 H 02/06/20 09:39 Pulse Ox 97 02/06/20 09:39 - Orders/Labs/Meds Orders: Active Orders 24 hr Category Date Time Status Sodium Chloride 0.9% [Saline Flush] Med 02/06/20 08:08 Active 10 ml FLUSH ASDIRECTED PRN Sodium Chloride 0.9% [Saline Flush] Med 02/06/20 08:08 Active 2.5 ml FLUSH ASDIRECTED PRN Sodium Chloride 0.9% [Saline Flush] Med 02/06/20 08:08 Active 2.5 ml FLUSH ASDIRECTED PRN Saline Lock Insert [OM.PC] Stat Oth 02/06/20 08:08 Ordered Medication Orders Sodium Chloride (Saline Flush) 2.5 ml FLUSH ASDIRECTED PRN PRN Reason: Keep Vein Open Last Admin: 02/06/20 08:35 Dose: 2.5 ml Sodium Chloride (Saline Flush) 10 ml FLUSH ASDIRECTED PRN PRN Reason: Keep Vein Open Last Admin: 02/06/20 08:36 Dose: 10 ml Sodium Chloride (Saline Flush) 2.5 ml FLUSH ASDIRECTED PRN PRN Reason: Keep Vein Open Last Admin: 02/06/20 08:35 Dose: 2.5 ml Labs: Laboratory Tests 02/06/20 02/06/20 02/06/20 Range/Units 07:58 07:58 08:28 WBC 11.21 H (4.0-11.0) K/uL RBC 5.43 (4.30-5.90) M/uL Hgb 14.6 (12.0-16.0) g/dL Hct 45.0 (36.0-46.0) % MCV 82.9 (80.0-98.0) fL MCH 26.9 L (27.0-32.0) pg MCHC 32.4 (31.0-37.0) g/dL RDW Std Deviation 41.7 (28.0-62.0) fl RDW Coeff of Bandar 14 (11.0-15.0) % Plt Count 279 (150-400) K/uL MPV 10.20 (7.40-12.00) fL Neut % (Auto) 69.5 (48.0-80.0) % Lymph % (Auto) 22.9 (16.0-40.0) % [place] % (Auto) 5.4 (0.0-15.0) % Eos % (Auto) 1.8 (0.0-7.0) % Baso % (Auto) 0.4 (0.0-1.5) % Neut # (Auto) 7.8 H (1.4-5.7) K/uL Lymph # (Auto) 2.6 H (0.6-2.4) K/uL Hettinger # (Auto) 0.6 (0.0-0.8) K/uL Eos # (Auto) 0.2 (0.0-0.7) K/uL Baso # (Auto) 0.0 (0.0-0.1) K/uL Nucleated RBC % 0.0 /100WBC Nucleated RBCs # 0 K/uL Sodium (136-145) mmol/L Potassium (3.5-5.1) mmol/L Chloride (98-107) mmol/L Carbon Dioxide (21.0-32.0) mmol/L BUN (7.0-18.0) mg/dL Creatinine (0.6-1.0) mg/dL Est Cr Clr Drug Dosing mL/min Estimated GFR (MDRD) ml/min Glucose (74-106) mg/dL Calcium (8.5-10.1) mg/dL Total Bilirubin (0.2-1.0) mg/dL AST (15-37) IU/L ALT (14-63) IU/L Alkaline Phosphatase (46-116) U/L Total Protein (6.4-8.2) g/dL Albumin (3.4-5.0) g/dL Globulin (2.6-4.0) g/dL Albumin/Globulin Ratio (0.9-1.6) Urine Color YELLOW Urine Appearance CLEAR Urine pH 6.0 (5.0-8.0) Ur Specific Derby 1.020 (1.001-1.035) Urine Protein NEGATIVE (NEGATIVE) mg/dL Urine Glucose (UA) NEGATIVE (NEGATIVE) mg/dL Urine Ketones NEGATIVE (NEGATIVE) mg/dL Urine Occult Blood NEGATIVE (NEGATIVE) Urine Nitrite NEGATIVE (NEGATIVE) Urine Bilirubin NEGATIVE (NEGATIVE) Urine Urobilinogen 0.2 (<2.0) EU/dL Ur Leukocyte Esterase NEGATIVE (NEGATIVE) Urine HCG, Qual NEGATIVE (NEGATIVE) 02/06/20 Range/Units 08:28 WBC (4.0-11.0) K/uL RBC (4.30-5.90) M/uL Hgb (12.0-16.0) g/dL Hct (36.0-46.0) % MCV (80.0-98.0) fL MCH (27.0-32.0) pg MCHC (31.0-37.0) g/dL RDW Std Deviation (28.0-62.0) fl RDW Coeff of Bandar (11.0-15.0) % Plt Count (150-400) K/uL MPV (7.40-12.00) fL Neut % (Auto) (48.0-80.0) % Lymph % (Auto) (16.0-40.0) % Hetting[place] % (Auto) (0.0-15.0) % Eos % (Auto) (0.0-7.0) % Baso % (Auto) (0.0-1.5) % Neut # (Auto) (1.4-5.7) K/uL Lymph # (Auto) (0.6-2.4) K/uL Hettinger # (Auto) (0.0-0.8) K/uL Eos # (Auto) (0.0-0.7) K/uL Baso # (Auto) (0.0-0.1) K/uL Nucleated RBC % /100WBC Nucleated RBCs # K/uL Sodium 137 (136-145) mmol/L Potassium 3.9 (3.5-5.1) mmol/L Chloride 100 (98-107) mmol/L Carbon Dioxide 25.9 (21.0-32.0) mmol/L BUN 11 (7.0-18.0) mg/dL Creatinine 0.8 (0.6-1.0) mg/dL Est Cr Clr Drug Dosing 93.37 mL/min Estimated GFR (MDRD) > 60.0 ml/min Glucose 159 H (74-106) mg/dL Calcium 8.9 (8.5-10.1) mg/dL Total Bilirubin 0.2 (0.2-1.0) mg/dL AST 18 (15-37) IU/L ALT 32 (14-63) IU/L Alkaline Phosphatase 94 (46-116) U/L Total Protein 7.7 (6.4-8.2) g/dL Albumin 3.5 (3.4-5.0) g/dL Globulin 4.2 H (2.6-4.0) g/dL Albumin/Globulin Ratio 0.8 L (0.9-1.6) Urine Color Urine Appearance Urine pH (5.0-8.0) Ur Specific [place] (1.001-1.035) Urine Protein (NEGATIVE) mg/dL Urine Glucose (UA) (NEGATIVE) mg/dL Urine Ketones (NEGATIVE) mg/dL Urine Occult Blood (NEGATIVE) Urine Nitrite (NEGATIVE) Urine Bilirubin (NEGATIVE) Urine Urobilinogen (<2.0) EU/dL Ur Leukocyte Esterase (NEGATIVE) Urine HCG, Qual (NEGATIVE) Meds: Medications Generic Name Dose Route Start Last Admin Trade Name Freq PRN Reason Stop Dose Admin Sodium Chloride 2.5 ml 02/06/20 08:08 02/06/20 08:35 Saline Flush FLUSH 2.5 ml ASDIRECTED PRN Administration Keep Vein Open Sodium Chloride 10 ml 02/06/20 08:08 02/06/20 08:36 Saline Flush FLUSH 10 ml ASDIRECTED PRN Administration Keep Vein Open Sodium Chloride 2.5 ml 02/06/20 08:08 02/06/20 08:35 Saline Flush FLUSH 2.5 ml ASDIRECTED PRN Administration Keep Vein Open Discontinued Medications Generic Name Dose Route Start Last Admin Trade Name Anusha PRN Reason Stop Dose Admin Sodium Chloride 1,000 mls @ 999 mls/hr 02/06/20 08:08 02/06/20 08:28 Normal Saline IV 02/06/20 09:08 999 mls/hr BOLUS ONE Administration Ketorolac Tromethamine 30 mg 02/06/20 08:08 02/06/20 08:29 Toradol IVPUSH 02/06/20 08:09 30 mg ONETIME ONE Administration Morphine Sulfate 4 mg 02/06/20 09:11 02/06/20 09:15 Morphine IVPUSH 02/06/20 09:12 4 mg ONETIME ONE Administration Morphine Sulfate 4 mg 02/06/20 09:40 02/06/20 09:59 Morphine IVPUSH 02/06/20 09:41 4 mg ONETIME ONE Administration Ondansetron HCl 4 mg 02/06/20 08:08 02/06/20 08:28 Zofran IVPUSH 02/06/20 08:09 4 mg ONETIME ONE Administration Departure - Departure Time of Disposition: 10:37 Disposition: Home, Self-Care 01 Clinical Impression: Kidney stone - Discharge Information *PRESCRIPTION DRUG MONITORING PROGRAM REVIEWED*: Not Applicable *COPY OF PRESCRIPTION DRUG MONITORING REPORT IN PATIENT LEONELA: Not Applicable Prescriptions: oxyCODONE HCl/Acetaminophen [Percocet 5-325 mg Tablet] 1 each PO Q8HR #12 tablet Naproxen Sodium [Anaprox DS] 550 mg PO BID #20 tab Ondansetron [Zofran ODT] 4 mg PO Q6H PRN 5 Days #12 tab.dis PRN Reason: Nausea/Vomiting Tamsulosin [Flomax] 0.4 mg PO DAILY 10 Days #10 cap.er Referrals: Markus Smith MD [Primary Care Provider] - Forms: ED Department Discharge Additional Instructions: The following information is given to patients seen in the emergency department who are being discharged to home. This information is to outline your options for follow-up care. We provide all patients seen in our emergency department with a follow-up referral. The need for follow-up, as well as the timing and circumstances, are variable depending upon the specifics of your emergency department visit. If you don't have a primary care physician on staff, we will provide you with a referral. We always advise you to contact your personal physician following an emergency department visit to inform them of the circumstance of the visit and for follow-up with them and/or the need for any referrals to a consulting specialist. The emergency department will also refer you to a specialist when appropriate. This referral assures that you have the opportunity for follow-up care with a specialist. All of these measure are taken in an effort to provide you with optimal care, which includes your follow-up. Under all circumstances we always encourage you to contact your private physician who remains a resource for coordinating your care. When calling for follow-up care, please make the office aware that this follow-up is from your recent emergency room visit. If for any reason you are refused follow-up, please contact the [facility] Emergency Department at and asked to speak to the emergency department charge nurse. Sepsis Event Note - Evaluation Sepsis Screening Result: No Definite Risk - Focused Exam Vital Signs: Vital Signs Temp Pulse Resp BP Pulse Ox 02/06/20 09:39 91 127/93 H 97 02/06/20 08:52 90 22 H 132/74 98 02/06/20 07:57 36.4 C 111 H 22 H 146/115 H 97 Date Exam was Performed: 02/06/20 Time Exam was Performed: 10:37 - My Orders Last 24 Hours: My Active Orders 02/06/20 08:08 Sodium Chloride 0.9% [Saline Flush] 10 ml FLUSH ASDIRECTED PRN Sodium Chloride 0.9% [Saline Flush] 2.5 ml FLUSH ASDIRECTED PRN Sodium Chloride 0.9% [Saline Flush] 2.5 ml FLUSH ASDIRECTED PRN Saline Lock Insert [OM.PC] Stat - Assessment/Plan Last 24 Hours: My Active Orders 02/06/20 08:08 Sodium Chloride 0.9% [Saline Flush] 10 ml FLUSH ASDIRECTED PRN Sodium Chloride 0.9% [Saline Flush] 2.5 ml FLUSH ASDIRECTED PRN Sodium Chloride 0.9% [Saline Flush] 2.5 ml FLUSH ASDIRECTED PRN Saline Lock Insert [OM.PC] Stat
[2020-02-06] MEDS ORDERED: Morphine 4 MG/ML Syringe IVPUSH ONE ×2 (09:11→09:40)
[2020-02-06 09:14] LABS: BLOOD UREA NITROGEN,BUN 11 mg/dL (7.0-18.0); CARBON DIOXIDE,CO2 25.9 mmol/L (21.0-32.0); CHLORIDE,CL 100 mmol/L (98-107); GLUCOSE RANDOM 159 mg/dL (74-106); POTASSIUM,K 3.9 mmol/L (3.5-5.1); SODIUM,NA 137 mmol/L (136-145)
== END 2020-02-06 10:51 | disposition home or self-care (01) ==
LOC: MW.ED 07:45
DX: N20.0 Calculus of kidney (principal); E66.9 Obesity, unspecified; F17.210 Nicotine dependence, cigarettes, uncomplicated; Z88.5 Allergy status to narcotic agent; Z88.8 Allergy status to other drugs, medicaments and biological substances; Z91.040 Latex allergy status; Z79.899 Other long term (current) drug therapy; Z68.43 Body mass index [BMI] 50.0-59.9, adult; Z91.048 Other nonmedicinal substance allergy status
CPT/HCPCS: 36415; 80053; 81003; 81025; 85025; 96361; 96374; 96375; 96376; 99284; J1885; J2270; J2405; J7030; 99283

== ENCOUNTER 2020-03-15 03:33 | Emergency (ER) | payer BC ==
[2020-03-15] MEDS ORDERED: Ketorolac 15 MG/ML SDV IVPUSH ONE (04:07)
[2020-03-15] MEDS ORDERED: Sodium Chloride 0.9% 2.5 ML Syringe FLUSH PRN (04:07)
[2020-03-15] MEDS ORDERED: Lactated Ringers 1,000 ML IV ONE (04:07)
[2020-03-15] MEDS ORDERED: Acetaminophen 500 MG Tab PO ONE (04:07)
[2020-03-15] MEDS ORDERED: Sodium Chloride 0.9% 10 ML Syringe FLUSH PRN (04:07)
[2020-03-15] MEDS ORDERED: fentaNYL 50 MCG/ML SDV IVPUSH ONE ×2 (04:07→06:07)
--- NOTE | 2020-03-15 04:08 | EDM.PDOC ---
ED HPI GENERAL MEDICAL PROBLEM - General Chief Complaint: General Stated Complaint: SURGERY COMPLICATION Time Seen by Provider: 03/15/20 03:44 Source of Information: Reports: Patient, Old Records - History of Present Illness INITIAL COMMENTS - FREE TEXT/NARRATIVE: 29-year-old female with past medical history of numerous kidney stones and lithotripsy procedures, recently status post lithotripsy and ureteral stent placement. Patient was just seen in the [place] [facility] for lithotripsy and ureteral stent placement and was driving home when her ureteral stent partially extruded. The patient removed the stent fully on March 13, 2020. She is experiencing some mild left upper quadrant and left flank pain since then, but this pain became severe approximately 3 hours ago. She complains of severe left upper quadrant pain radiating to the left flank along with some nausea but no emesis. She is been taking her prescribed oxycodone and oxybutynin and ibuprofen without relief. Nothing makes her pain better or worse, she rates as 10 out of 10 and states that is constant and "sharp". She denies any fever, chills, vomiting, dysuria, hematuria, or urinary frequency. Left Flank Pain Score (Numeric/FACES): 10 - Related Data Allergies Allergy/AdvReac Type Severity Reaction Status Date / Time adhesive Allergy Hives Verified 03/15/20 04:05 hydrocodone [From Vicodin] Allergy Irritabilit Verified 03/15/20 04:05 y latex Allergy Hives Verified 03/15/20 04:05 metoclopramide [From Reglan] Allergy Irritabilit Verified 03/15/20 04:05 y promethazine [From Phenergan] Allergy Irritabilit Verified 03/15/20 04:05 y sumatriptan [From Imitrex] Allergy Irritabilit Verified 03/15/20 04:05 y Home Meds: Home Meds Ibuprofen [Motrin] 600 mg PO ASDIRECTED 03/15/20 [History] Oxybutynin 5 mg PO ASDIRECTED 03/15/20 [History] oxyCODONE 5 mg PO ASDIRECTED 03/15/20 [History] Past Medical History HEENT History: Reports: Impaired Vision, Other (See Below) Other HEENT History: wears glasses Cardiovascular History: Reports: None Respiratory History: Reports: Asthma, Sleep Apnea Gastrointestinal History: Reports: GERD, Irritable Bowel Syndrome Genitourinary History: Reports: Renal Calculus EYE TECHNICIAN History: Reports: Polycystic Ovaries Musculoskeletal History: Reports: None Neurological History: Reports: Migraines Psychiatric History: Reports: Anxiety, Bipolar, Depression Endocrine/Metabolic History: Reports: Obesity/BMI 30+ Hematologic History: Reports: None Immunologic History: Reports: None Oncologic (Cancer) History: Reports: None Dermatologic History: Reports: None - Infectious Disease History Infectious Disease History: Reports: Chicken Pox - Past Surgical History Head Surgeries/Procedures: Reports: None Female Surgical History: Reports: Lithotripsy/ESWL, Other (See Below) Other Female Surgeries/Procedures: Nephrostomy, ureterscopy Social & Family History - Family History Family Medical History: Noncontributory - Caffeine Use Caffeine Use: Reports: Coffee ED ROS GENERAL - Review of Systems Review Of Systems: See Below Constitutional: Denies: Fever, Chills HEENT: Reports: No Symptoms Respiratory: Denies: Shortness of Breath Cardiovascular: Denies: Chest Pain Endocrine: Reports: No Symptoms GI/Abdominal: Reports: Abdominal Pain, Nausea. Denies: Black Stool, Bloody Stool, Diarrhea, Distension, Hematemesis, Melena, Mucous in Stool, Vomiting : Reports: Flank Pain. Denies: Discharge, Dysuria, Hematuria, Pain Musculoskeletal: Reports: No Symptoms Skin: Denies: Lesions Neurological: Denies: Headache Psychiatric: Reports: No Symptoms ED EXAM, GENERAL - Physical Exam Exam: See Below Free Text/Narrative:: Vital signs reviewed. Nursing notes reviewed. Constitutional: Awake, alert, uncomfortable appearing Head: Normocephalic, atraumatic. Eyes: EOMI, conjunctiva normal, no discharge, no scleral icterus. Ears, Nose, Throat: External ears and nose normal, moist oral mucosa. Cardiovascular: 2+ radial pulse, capillary refill less than 2 seconds. Pulmonary: normal work of breathing, no accessory muscle use. Abdomen/GI: Morbidly obese, soft, mild tenderness in the left upper quadrant, nondistended, no guarding or rigidity, no masses. Musculoskeletal: No deformities. Integumentary: Appropriate color for ethnicity, warm, dry, no pallor or jaundice, no rash. Neurologic: Alert, answering questions appropriately, normal speech, no facial droop, moving all extremities well. Psychiatric: Anxious Course - Vital Signs Text/Narrative:: Patient tachycardic but hemodynamically stable, afebrile, well-appearing, looks nontoxic. Differential diagnosis includes but is not limited to: Kidney stone, UTI, pyelonephritis, infected stone, gastritis, pancreatitis, GERD, bowel perforation, AAA, splenic infarction, mesenteric ischemia, bowel obstruction, ileus, etc. IV access established, given fentanyl for pain with good relief. Also given IV fluids. Labs returned showing leukocytosis to 17.22 with a neutrophilic pred ominance. Normal lactate. Creatinine is elevated at 1.3, consistent with an acute kidney injury. Normal lipase and LFTs. Urinalysis shows positive nitrites, trace leukocyte esterase, and numerous red blood cells. Urine culture was added on. Patient was initially tachycardic and has a leukocytosis on her CBC. She was in extreme pain on arrival and I believe that her tachycardia was mediated by her pain. Her heart rate normalized after receiving some fentanyl so I do not think that her presentation is consistent with sepsis, I think that her leukocytosis is probably due to stress reaction/stress demargination. We obtained CT imaging of the abdomen/pelvis which was concerning for a retracted blood clot in the left proximal ureter, also demonstrated a small stone in the left kidney itself. No other acute findings were noted. No evidence of pyelonephritis or cystitis radiographically. I did discuss the case with our on-call urologist Dr. Henderson who states that the blood clot should resolve and does not require any intervention at this point. He recommended oral antibiotics and pain medications and would like her to follow-up with him in his clinic in a few days. Pain is well controlled after IV fentanyl, patient appears much more comfortable. We will plan to discharge her home with a course of ciprofloxacin and Percocet for pain along with some Zofran. Also recommended plenty of fluids by mouth. Strict ED return precautions were provided, patient indicated understanding. All questions were answered prior to departure. Discharged in good condition. Last Recorded V/S: Last Vital Signs Temp 36.6 C 03/15/20 03:49 Pulse 85 03/15/20 06:07 Resp 18 03/15/20 06:07 BP 115/60 03/15/20 06:07 Pulse Ox 94 L 03/15/20 06:07 - Orders/Labs/Meds Orders: Active Orders 24 hr Category Date Time Status Pulse Oximetry [RC] ASDIRECTED Care 03/15/20 04:07 Active CULTURE URINE [RM] Stat Lab 03/15/20 04:30 Received Sodium Chloride 0.9% [Saline Flush] Med 03/15/20 04:07 Active 10 ml FLUSH ASDIRECTED PRN Sodium Chloride 0.9% [Saline Flush] Med 03/15/20 04:07 Active 2.5 ml FLUSH ASDIRECTED PRN Saline Lock Insert [OM.PC] Stat Oth 03/15/20 04:07 Ordered Medication Orders Sodium Chloride (Saline Flush) 10 ml FLUSH ASDIRECTED PRN PRN Reason: Keep Vein Open Last Admin: 03/15/20 04:27 Dose: 10 ml Documented by: RUBI Sodium Chloride (Saline Flush) 2.5 ml FLUSH ASDIRECTED PRN PRN Reason: Keep Vein Open Last Admin: 03/15/20 04:27 Dose: 2.5 ml Documented by: RUBI Labs: Laboratory Tests 03/15/20 03/15/20 03/15/20 Range/Units 04:10 04:10 04:10 WBC 17.22 H (4.0-11.0) K/uL RBC 5.08 (4.30-5.90) M/uL Hgb 13.8 (12.0-16.0) g/dL Hct 43.0 (36.0-46.0) % MCV 84.6 (80.0-98.0) fL MCH 27.2 (27.0-32.0) pg MCHC 32.1 (31.0-37.0) g/dL RDW Std Deviation 43.6 (28.0-62.0) fl RDW Coeff of Bandar 14 (11.0-15.0) % Plt Count 329 (150-400) K/uL MPV 10.30 (7.40-12.00) fL Neut % (Auto) 62.4 (48.0-80.0) % Lymph % (Auto) 30.8 (16.0-40.0) % [place] % (Auto) 5.9 (0.0-15.0) % Eos % (Auto) 0.6 (0.0-7.0) % Baso % (Auto) 0.3 (0.0-1.5) % Neut # (Auto) 10.7 H (1.4-5.7) K/uL Lymph # (Auto) 5.3 H (0.6-2.4) K/uL [place] # (Auto) 1.0 H (0.0-0.8) K/uL Eos # (Auto) 0.1 (0.0-0.7) K/uL Baso # (Auto) 0.1 (0.0-0.1) K/uL Nucleated RBC % 0.0 /100WBC Nucleated RBCs # 0 K/uL Lactate 1.5 (0.20-2.00) mmol/L Sodium 137 (136-145) mmol/L Potassium 4.0 (3.5-5.1) mmol/L Chloride 100 (98-107) mmol/L Carbon Dioxide 25.8 (21.0-32.0) mmol/L BUN 18 (7.0-18.0) mg/dL Creatinine 1.3 H (0.6-1.0) mg/dL Est Cr Clr Drug Dosing 57.46 mL/min Estimated GFR (MDRD) 48.4 ml/min Glucose 126 H (74-106) mg/dL Calcium 8.8 (8.5-10.1) mg/dL Total Bilirubin 0.2 (0.2-1.0) mg/dL AST 26 (15-37) IU/L ALT 35 (14-63) IU/L Alkaline Phosphatase 92 (46-116) U/L Total Protein 7.6 (6.4-8.2) g/dL Albumin 3.7 (3.4-5.0) g/dL Globulin 3.9 (2.6-4.0) g/dL Albumin/Globulin Ratio 0.9 (0.9-1.6) Lipase 52 L (73-393) U/L HCG, Qual (NEG) Urine Color Urine Appearance Urine pH (5.0-8.0) Ur Specific [place] (1.001-1.035) Urine Protein (NEGATIVE) mg/dL Urine Glucose (UA) (NEGATIVE) mg/dL Urine Ketones (NEGATIVE) mg/dL Urine Occult Blood (NEGATIVE) Urine Nitrite (NEGATIVE) Urine Bilirubin (NEGATIVE) Urine Ictotest Urine Urobilinogen (<2.0) EU/dL Ur Leukocyte Esterase (NEGATIVE) Urine RBC (0-2/HPF) Urine WBC (0-5/HPF) Ur Epithelial Cells (NONE-FEW) Calcium Oxalate Crystal (NEGATIVE) Urine Bacteria (NEGATIVE) 03/15/20 03/15/20 Range/Units 04:10 04:32 WBC (4.0-11.0) K/uL RBC (4.30-5.90) M/uL Hgb (12.0-16.0) g/dL Hct (36.0-46.0) % MCV (80.0-98.0) fL MCH (27.0-32.0) pg MCHC (31.0-37.0) g/dL RDW Std Deviation (28.0-62.0) fl RDW Coeff of Bandar (11.0-15.0) % Plt Count (150-400) K/uL MPV (7.40-12.00) fL Neut % (Auto) (48.0-80.0) % Lymph % (Auto) (16.0-40.0) % [place] % (Auto) (0.0-15.0) % Eos % (Auto) (0.0-7.0) % Baso % (Auto) (0.0-1.5) % Neut # (Auto) (1.4-5.7) K/uL Lymph # (Auto) (0.6-2.4) K/uL [place] # (Auto) (0.0-0.8) K/uL Eos # (Auto) (0.0-0.7) K/uL Baso # (Auto) (0.0-0.1) K/uL Nucleated RBC % /100WBC Nucleated RBCs # K/uL Lactate (0.20-2.00) mmol/L Sodium (136-145) mmol/L Potassium (3.5-5.1) mmol/L Chloride (98-107) mmol/L Carbon Dioxide (21.0-32.0) mmol/L BUN (7.0-18.0) mg/dL Creatinine (0.6-1.0) mg/dL Est Cr Clr Drug Dosing mL/min Estimated GFR (MDRD) ml/min Glucose (74-106) mg/dL Calcium (8.5-10.1) mg/dL Total Bilirubin (0.2-1.0) mg/dL AST (15-37) IU/L ALT (14-63) IU/L Alkaline Phosphatase (46-116) U/L Total Protein (6.4-8.2) g/dL Albumin (3.4-5.0) g/dL Globulin (2.6-4.0) g/dL Albumin/Globulin Ratio (0.9-1.6) Lipase (73-393) U/L HCG, Qual NEGATIVE (NEG) Urine Color BROWN Urine Appearance CLOUDY Urine pH 5.5 (5.0-8.0) Ur Specific [place] >= 1.030 (1.001-1.035) Urine Protein 30 H (NEGATIVE) mg/dL Urine Glucose (UA) NEGATIVE (NEGATIVE) mg/dL Urine Ketones NEGATIVE (NEGATIVE) mg/dL Urine Occult Blood LARGE H (NEGATIVE) Urine Nitrite POSITIVE H (NEGATIVE) Urine Bilirubin SMALL H (NEGATIVE) Urine Ictotest NEGATIVE Urine Urobilinogen 0.2 (<2.0) EU/dL Ur Leukocyte Esterase TRACE H (NEGATIVE) Urine RBC TOO NUMEROUS TO CT H (0-2/HPF) Urine WBC 3-6 (0-5/HPF) Ur Epithelial Cells OCCASIONAL (NONE-FEW) Calcium Oxalate Crystal RARE (NEGATIVE) Urine Bacteria FEW (NEGATIVE) Meds: Medications Generic Name Dose Route Start Last Admin Trade Name Freq PRN Reason Stop Dose Admin Sodium Chloride 10 ml 03/15/20 04:07 03/15/20 04:27 Saline Flush FLUSH 10 ml ASDIRECTED PRN Administration Keep Vein Open Sodium Chloride 2.5 ml 03/15/20 04:07 03/15/20 04:27 Saline Flush FLUSH 2.5 ml ASDIRECTED PRN Administration Keep Vein Open Discontinued Medications Generic Name Dose Route Start Last Admin Trade Name Freq PRN Reason Stop Dose Admin Acetaminophen 1,000 mg 03/15/20 04:07 03/15/20 04:27 Tylenol Extra Strength PO 03/15/20 04:08 1,000 mg ONETIME ONE Administration Fentanyl 100 mcg 03/15/20 04:07 03/15/20 04:28 Fentanyl IVPUSH 03/15/20 04:08 100 mcg ONETIME ONE Administration Fentanyl 50 mcg 03/15/20 06:07 03/15/20 06:21 Fentanyl IVPUSH 03/15/20 06:08 50 mcg ONETIME ONE Administration Lactated Ringer's 1,000 mls @ 999 mls/hr 03/15/20 04:07 03/15/20 04:23 Ringers, Lactated IV 03/15/20 05:07 999 mls/hr .BOLUS ONE Administration Iopamidol 95 ml 03/15/20 05:17 03/15/20 05:18 Isovue-370 (76%) IVPUSH 03/15/20 05:18 95 ml ONETIME ONE Administration Ketorolac Tromethamine 15 mg 03/15/20 04:07 03/15/20 04:23 Toradol IVPUSH 03/15/20 04:08 15 mg ONETIME ONE Administration Departure - Departure Time of Disposition: 06:37 Disposition: Home, Self-Care 01 Condition: Good Clinical Impression: Acute cystitis with hematuria, Kidney stone on left side, Elevated serum creatinine - Discharge Information *PRESCRIPTION DRUG MONITORING PROGRAM REVIEWED*: Not Applicable *COPY OF PRESCRIPTION DRUG MONITORING REPORT IN PATIENT LEONELA: Not Applicable Instructions: Kidney Stones, Serum Creatinine Test Referrals: [facility] - Urology [Provider Group] - 3 Days (For follow-up of flank pain, kidney stone care, and to have your kidney function rechecked.) Forms: ED Department Discharge Additional Instructions: Thank you for choosing the [facility] emergency department in [place] for your medical needs today. It was a pleasure caring for you. You were seen in the emergency department for abdominal pain. Your CT scan showed a blood clot in the left ureter. Your urine testing was concerning for a UTI. You are being prescribed oral antibiotics, Zofran, and some Percocet for pain. I would like for you to follow-up in the urology clinic in the next few days for reevaluation. Your kidney function (creatinine) was also mildly abn ormal and you will need to have this rechecked by either the urologist or your primary doctor. Please return the emergency department immediately if your symptoms worsen or if you feel worse. The following information is given to patients seen in the emergency department who are being discharged. This information is to outline your options for follow-up care. We provide all patients seen in our emergency department with a follow-up referral. The need for follow-up, as well as the timing and circumstances, are variable depending upon the specifics of your emergency department visit. If you don't have a primary care physician on staff, we will provide you with a referral. We always advise you to contact your personal physician following an emergency department visit to inform them of the circumstance of the visit and for follow-up with them and/or the need for any referrals to a consulting specialist. The emergency department will also refer you to a specialist when appropriate. This referral assures that you have the opportunity for follow-up care with a specialist. All of these measure are taken in an effort to provide you with optimal care, which includes your follow-up. Under all circumstances we always encourage you to contact your private physician who remains a resource for coordinating your care. When calling for f ollow-up care, please make the office aware that this follow-up is from your recent emergency room visit. If for any reason you are refused follow-up, please contact the [facility] Emergency Department at and asked to speak to the emergency department charge nurse. If you do not have a primary care physician that is caring for you, you can contact these clinics below to set up an appointment to establish care: [facility] - Primary Care [address] [place] [address] [id number] [address] [address] Sepsis Event Note (ED) - Evaluation Sepsis Screening Result: No Definite Risk - Focused Exam Vital Signs: Vital Signs Temp Pulse Resp BP Pulse Ox 03/15/20 06:07 85 18 115/60 94 L 03/15/20 03:49 36.6 C 107 H 26 H 165/101 H 95 - My Orders Last 24 Hours: My Active Orders 03/15/20 04:07 Pulse Oximetry [RC] ASDIRECTED Sodium Chloride 0.9% [Saline Flush] 10 ml FLUSH ASDIRECTED PRN Sodium Chloride 0.9% [Saline Flush] 2.5 ml FLUSH ASDIRECTED PRN Saline Lock Insert [OM.PC] Stat 03/15/20 04:30 CULTURE URINE [RM] Stat - Assessment/Plan Last 24 Hours: My Active Orders 03/15/20 04:07 Pulse Oximetry [RC] ASDIRECTED Sodium Chloride 0.9% [Saline Flush] 10 ml FLUSH ASDIRECTED PRN Sodium Chloride 0.9% [Saline Flush] 2.5 ml FLUSH ASDIRECTED PRN Saline Lock Insert [OM.PC] Stat 03/15/20 04:30 CULTURE URINE [RM] Stat
[2020-03-15 04:38] LABS: CARBON DIOXIDE,CO2 25.8 mmol/L (21.0-32.0)
[2020-03-15] MEDS ORDERED: Iopamidol 755 Mg/ML 100 ML Bottle IVPUSH ONE (05:17)
--- NOTE | 2020-03-15 06:01 | CT ---
INDICATION: Severe left upper quadrant pain TECHNIQUE: CT Abdomen and pelvis with i.v. contrast. Coronal and sagittal reformats were obtained. CONTRAST: 95 mL Isovue 370 COMPARISON: None FINDINGS: Moderate degradation of image quality noted due to body habitus. Lower chest: Unremarkable. Liver: Unremarkable. Spleen: Unremarkable. Pancreas: Unremarkable. Gallbladder: Unremarkable. Kidney: Moderate left renal pelvicaliectasis is present with mild left hydroureter. The proximal ureter lumen is mildly hyperdense in appearance. There is a 1 mm stone present and a posterior left renal midzone calyx noted. Adrenal: Unremarkable. Bowel: Unremarkable. The appendix is normal in appearance and size. Vascular: Unremarkable. Lymph: Unremarkable. Peritoneum: Unremarkable. No pneumoperitoneum is seen. No significant ascites is noted. Pelvis: There is a round mildly hyperdense structure in the left adnexa on image 130 measuring 3.5 cm and likely represents the left ovary. Soft tissue: Unremarkable. Bone: Unremarkable for age. IMPRESSION: 1. Moderate left renal pelvicaliectasis is present with mild left hydroureter. The proximal ureter lumen is mildly hyperdense in appearance. Correlation with urinalysis is recommended to exclude hematuria with retracted clot in the proximal ureter. Dictated by Marc hTomas MD @ 03/15/2020 5:59:38 AM Please note that all CT scans at this facility use dose modulation, iterative reconstruction, and/or weight-based dosing when appropriate to reduce radiation dose to as low as reasonably achievable. Dictated by: Marc Thomas MD @ 03/15/2020 05:59:41 (Electronically Signed)
== END 2020-03-15 06:59 | disposition home or self-care (01) ==
LOC: MW.ED 03:33
DX: N30.01 Acute cystitis with hematuria (principal); N20.0 Calculus of kidney; R74.8 Abnormal levels of other serum enzymes; E66.9 Obesity, unspecified; Z68.43 Body mass index [BMI] 50.0-59.9, adult; Z91.048 Other nonmedicinal substance allergy status; Z88.5 Allergy status to narcotic agent; Z91.040 Latex allergy status; Z88.8 Allergy status to other drugs, medicaments and biological substances
CPT/HCPCS: 36415; 74177; 80053; 81001; 83605; 83690; 84703; 85025; 87086; 96361; 96374; 96375; 96376; 99284; A9270; J1885; J3010; J7120; Q9967

== ENCOUNTER 2020-08-12 02:53 | Inpatient (IN) | payer BC ==
[2020-08-12] MEDS ORDERED: Sodium Chloride 0.9% 2.5 ML Syringe FLUSH PRN ×2 (03:07→12:28)
[2020-08-12] MEDS ORDERED: Ondansetron 4 MG/2 ML SDV IVPUSH ONE ×3 (03:07→08:44)
[2020-08-12] MEDS ORDERED: Sodium Chloride 0.9% 10 ML Syringe FLUSH PRN (03:07)
--- NOTE | 2020-08-12 03:12 | EDM.PDOC ---
<Bayron Moore - Last Filed: 08/12/20 06:42> ED HPI GENERAL MEDICAL PROBLEM - General Chief Complaint: Abdominal Pain Stated Complaint: EXTREME PAIN- RECENT GASTRIC SURGERY Time Seen by Provider: 08/12/20 02:53 - History of Present Illness INITIAL COMMENTS - FREE TEXT/NARRATIVE: Patient is a 29-year-old female who is approximately 2 weeks status post gastric bypass in [place]. She has been doing well at home. Starting yesterday evening she developed a constant gradually worsening epigastric abdominal pain that was associated with nonbloody nonbilious emesis. She now has regurgitation of fluid and bile in emesis with any attempted p.o. intake. She has a constant 7 out of 10 associated epigastric pain she has no fever the pain radiates some down to the left lower quadrant no dysuria hematuria. Epigastric Pain Score (Numeric/FACES): 7 - Related Data Allergies Allergy/AdvReac Type Severity Reaction Status Date / Time adhesive Allergy Hives Verified 08/12/20 03:00 hydrocodone [From Vicodin] Allergy Irritabilit Verified 08/12/20 03:00 y latex Allergy Hives Verified 08/12/20 03:00 metoclopramide [From Reglan] Allergy Irritabilit Verified 08/12/20 03:00 y promethazine [From Phenergan] Allergy Irritabilit Verified 08/12/20 03:00 y sumatriptan [From Imitrex] Allergy Irritabilit Verified 08/12/20 03:00 y Home Meds: Home Meds Cyclobenzaprine [Flexeril] 10 mg PO TID PRN 08/12/20 [History] FLUoxetine [PROzac] 20 mg PO DAILY 08/12/20 [History] Multivit-Min/Iron/Folic Acid/K [Bariatric Mv-Iron 45 mg Cap] 1 tab PO DAILY 08/12/20 [History] Omeprazole 20 mg PO DAILY 08/12/20 [History] Ondansetron [Zofran] 4 mg PO Q6HR PRN 08/12/20 [History] oxyCODONE HCl/Acetaminophen [Oxycodone-Acetaminophen 5-325] 1 tab PO TID PRN 08/12/20 [History] Past Medical History HEENT History: Reports: Impaired Vision, Other (See Below) Other HEENT History: wears glasses Cardiovascular History: Reports: None Respiratory History: Reports: Asthma, Sleep Apnea Gastrointestinal History: Reports: GERD, Irritable Bowel Syndrome Genitourinary History: Reports: Renal Calculus PEN MAKER History: Reports: Polycystic Ovaries Musculoskeletal History: Reports: None Neurological History: Reports: Migraines Psychiatric History: Reports: Anxiety, Bipolar, Depression Endocrine/Metabolic History: Reports: Obesity/BMI 30+ Hematologic History: Reports: None Immunologic History: Reports: None Oncologic (Cancer) History: Reports: None Dermatologic History: Reports: None - Infectious Disease History Infectious Disease History: Reports: Chicken Pox - Past Surgical History Head Surgeries/Procedures: Reports: None HEENT Surgical History: Reports: None Respiratory Surgical History: Reports: None GI Surgical History: Reports: None, Bariatric Procedure Female Surgical History: Reports: Lithotripsy/ESWL, Other (See Below) Other Female Surgeries/Procedures: Nephrostomy of scar tissue, ureterscopy Neurological Surgical History: Reports: None Social & Family History - Family History Family Medical History: No Pertinent Family History - Caffeine Use Caffeine Use: Reports: None - Recreational Drug Use Other Recreational Drug Type: thc edibles ED ROS GENERAL - Review of Systems Review Of Systems: See Below Free Text/Narrative/Comment: General: No fever. Skin: No rash. Eyes: No vision problems. ENT: No sore throat. Neck: No neck stiffness. Respiratory: No shortness of breath. Cardiac: No chest pain. Gastrointestinal: Per HPI Urinary: No dysuria. Musculoskeletal: No myalgias/arthralgias. Neurologic: No headache. ED EXAM, GENERAL - Physical Exam Exam: See Below Free Text/Narrative:: General Appearance: No acute distress, appears comfortable Skin: No rash HEENT: Normocephalic/atraumatic, sclera anicteric, mucous membranes moist Neck: Normal range of motion Chest and Lungs: Bilateral breath sounds, clear to auscultation Cardiovascular: Regular rate and rhythm, no murmur Abdomen: Epigastric tenderness without guarding or rebound Back: Normal Musculoskeletal: No edema or tenderness Neurologic: Awake, alert, no obvious deficits, moving all extremities Psychiatric: Appropriate, cooperative Departure - Departure Disposition: Refer to Observation Clinical Impression: Epigastric abdominal pain Nausea and vomiting Qualifiers: Vomiting Intractability: intractable - Discharge Information Sepsis Event Note (ED) - Evaluation Sepsis Screening Result: No Definite Risk - Assessment/Plan Assessment:: 29-year-old female presenting with abdominal pain emesis and p.o. intolerance over the last 24 hours in the setting of relatively recent gastric bypass. Bowel obstruction needs to be considered anastomotic ulcer needs to be considered anastomotic leak possible but felt less likely. Other etiologies such as biliary colic gastritis etc. considered but felt less likely. CBC CMP lipase morphine Zofran for symptoms IV fluid and CT scan with water-soluble oral contrast. Pt's labs are normal. Pt just returned from CT. CT result is pending. Pt signed out to Dr. Brewer pending imaging result and final disposition. <Adrian Brewer - Last Filed: 08/12/20 10:57> Course - Vital Signs Text/Narrative:: I assumed care of this patient at [address] Lemon. In brief, this is a 29-year-old female who is recently status post bypass surgery performed on July 26 at a hospital in [place]. Presenting with a 3-day history of epigastric pain along with nonbloody emesis and difficulty tolerating p.o. intake. Patient was initially tachycardic to 115, improved to 76 after IV fluids. CBC shows mild thrombocytosis, lactate negative, electrolytes and renal function are normal, lipase is negative, hCG is negative. Chest x-ray shows no acute findings. Patient has been given 1 L of lactated Ringer's, 4 mg of IM morphine, 4 mg of IV morphine, 4 mg of Zofran and is going down for a p.o. contrasted and IV contrasted CT scan of the abdomen/pelvis which is pending at time of shift change. 7:08 AM: I reevaluated patient. She is still complaining of ongoing epigastric abdominal pain and nausea. I ordered additional IV morphine sulfate and Zofran and we are waiting on radiology reads of the CT scan. Her abdomen is minimally tender diffusely but is not distended. 8:18 AM: CT abdomen/pelvis shows intact anastomosis, no bowel dilatation to suggest obstruction, no significant stool burden, negative appendix. Small mount of free air in the pelvis. Likely bilateral renal cysts, tiny nonobstructing left renal calyceal stone. No acute findings. 8:45 AM: I did speak with the patient's surgeon Dr. Larry at [facility]. I ideally wanted to transfer the patient there for further evaluation but they have no bed availability and are on total diversion. We are going to plan to admit the patient here for ongoing symptom control. Her CT scan is negative and her electrolytes and vital signs are reassuring. Dr. Larry recommends Carafate, PPI, and ongoing symptom control. She also recommended an upper GI series, unfortunately, we cannot obtain that at our facility. I did discuss the case with Dr. Juarez Hall the hospitalist, he is agreeable to admitting her here for ongoing symptom control. We will make her n.p.o. today and she will resume her level 1 diet tomorrow. I ordered Carafate, a PPI, additional morphine and Zofran, and we are awaiting admission. Patient was admitted in good condition. Last Recorded V/S: Last Vital Signs Temp 36.7 C 08/12/20 07:27 Pulse 85 08/12/20 07:27 Resp 18 08/12/20 07:27 BP 148/85 H 08/12/20 07:27 Pulse Ox 96 08/12/20 07:27 - Orders/Labs/Meds Orders: Active Orders 24 hr Category Date Time Status Lactated Ringers [Ringers, Lactated] 1,000 ml Med 08/12/20 03:15 Active IV ASDIRECTED Sodium Chloride 0.9% [Saline Flush] Med 08/12/20 03:07 Active 10 ml FLUSH ASDIRECTED PRN Sodium Chloride 0.9% [Saline Flush] Med 08/12/20 03:07 Active 2.5 ml FLUSH ASDIRECTED PRN Saline Lock Insert [OM.PC] Stat Oth 08/12/20 03:07 Ordered Medication Orders Lactated Ringer's (Ringers, Lactated) 1,000 mls @ 999 mls/hr IV ASDIRECTED JATIN Last Admin: 08/12/20 03:19 Dose: 999 mls/hr Documented by: WICHO Pantoprazole Sodium (Protonix) 40 mg PO DAILY JATIN Last Admin: 08/12/20 09:15 Dose: 40 mg Documented by: MISAELDNIC Sodium Chloride (Saline Flush) 10 ml FLUSH ASDIRECTED PRN PRN Reason: Keep Vein Open Last Admin: 08/12/20 07:22 Dose: 10 ml Documented by: FABIOLA Sodium Chloride (Saline Flush) 2.5 ml FLUSH ASDIRECTED PRN PRN Reason: Keep Vein Open Last Admin: 08/12/20 07:22 Dose: 2.5 ml Documented by: FABIOLA Labs: Laboratory Tests 08/12/20 08/12/20 08/12/20 Range/Units 03:15 03:15 03:15 WBC 10.70 (4.0-11.0) K/uL RBC 5.42 (4.30-5.90) M/uL Hgb 14.8 (12.0-16.0) g/dL Hct 45.5 (36.0-46.0) % MCV 83.9 (80.0-98.0) fL MCH 27.3 (27.0-32.0) pg MCHC 32.5 (31.0-37.0) g/dL RDW Std Deviation 42.8 (28.0-62.0) fl RDW Coeff of Bandar 14 (11.0-15.0) % Plt Count 404 H (150-400) K/uL MPV 11.80 (7.40-12.00) fL Neut % (Auto) 60.1 (48.0-80.0) % Lymph % (Auto) 31.3 (16.0-40.0) % [place] % (Auto) 6.0 (0.0-15.0) % Eos % (Auto) 2.1 (0.0-7.0) % Baso % (Auto) 0.5 (0.0-1.5) % Neut # (Auto) 6.4 H (1.4-5.7) K/uL Lymph # (Auto) 3.4 H (0.6-2.4) K/uL [place] # (Auto) 0.6 (0.0-0.8) K/uL Eos # (Auto) 0.2 (0.0-0.7) K/uL Baso # (Auto) 0.1 (0.0-0.1) K/uL Nucleated RBC % 0.0 /100WBC Nucleated RBCs # 0 K/uL Lactate 0.8 (0.20-2.00) mmol/L Sodium 139 (136-145) mmol/L Potassium 3.7 (3.5-5.1) mmol/L Chloride 103 (98-107) mmol/L Carbon Dioxide 23.7 (21.0-32.0) mmol/L BUN 10 (7.0-18.0) mg/dL Creatinine 1.0 (0.6-1.0) mg/dL Est Cr Clr Drug Dosing 74.69 mL/min Estimated GFR (MDRD) > 60.0 ml/min Glucose 117 H (74-106) mg/dL Calcium 9.3 (8.5-10.1) mg/dL Total Bilirubin 0.5 (0.2-1.0) mg/dL AST 20 (15-37) IU/L ALT 62 (14-63) IU/L Alkaline Phosphatase 91 (46-116) U/L Total Protein 8.2 (6.4-8.2) g/dL Albumin 3.9 (3.4-5.0) g/dL Globulin 4.3 H (2.6-4.0) g/dL Albumin/Globulin Ratio 0.9 (0.9-1.6) Lipase 113 (73-393) U/L HCG, Qual (NEG) 08/12/20 Range/Units 03:15 WBC (4.0-11.0) K/uL RBC (4.30-5.90) M/uL Hgb (12.0-16.0) g/dL Hct (36.0-46.0) % MCV (80.0-98.0) fL MCH (27.0-32.0) pg MCHC (31.0-37.0) g/dL RDW Std Deviation (28.0-62.0) fl RDW Coeff of Bandar (11.0-15.0) % Plt Count (150-400) K/uL MPV (7.40-12.00) fL Neut % (Auto) (48.0-80.0) % Lymph % (Auto) (16.0-40.0) % [place] % (Auto) (0.0-15.0) % Eos % (Auto) (0.0-7.0) % Baso % (Auto) (0.0-1.5) % Neut # (Auto) (1.4-5.7) K/uL Lymph # (Auto) (0.6-2.4) K/uL [place] # (Auto) (0.0-0.8) K/uL Eos # (Auto) (0.0-0.7) K/uL Baso # (Auto) (0.0-0.1) K/uL Nucleated RBC % /100WBC Nucleated RBCs # K/uL Lactate (0.20-2.00) mmol/L Sodium (136-145) mmol/L Potassium (3.5-5.1) mmol/L Chloride (98-107) mmol/L Carbon Dioxide (21.0-32.0) mmol/L BUN (7.0-18.0) mg/dL Creatinine (0.6-1.0) mg/dL Est Cr Clr Drug Dosing mL/min Estimated GFR (MDRD) ml/min Glucose (74-106) mg/dL Calcium (8.5-10.1) mg/dL Total Bilirubin (0.2-1.0) mg/dL AST (15-37) IU/L ALT (14-63) IU/L Alkaline Phosphatase (46-116) U/L Total Protein (6.4-8.2) g/dL Albumin (3.4-5.0) g/dL Globulin (2.6-4.0) g/dL Albumin/Globulin Ratio (0.9-1.6) Lipase (73-393) U/L HCG, Qual NEGATIVE (NEG) Meds: Medications Generic Name Dose Route Start Last Admin Trade Name Freq PRN Reason Stop Dose Admin Lactated Ringer's 1,000 mls @ 999 mls/hr 08/12/20 03:15 08/12/20 03:19 Ringers, Lactated IV 999 mls/hr ASDIRECTED JATIN Administration Pantoprazole Sodium 40 mg 08/12/20 09:00 08/12/20 09:15 Protonix PO 40 mg DAILY JATIN Administration Sodium Chloride 10 ml 08/12/20 03:07 08/12/20 07:22 Saline Flush FLUSH 10 ml ASDIRECTED PRN Administration Keep Vein Open Sodium Chloride 2.5 ml 08/12/20 03:07 08/12/20 07:22 Saline Flush FLUSH 2.5 ml ASDIRECTED PRN Administration Keep Vein Open Discontinued Medications Generic Name Dose Route Start Last Admin Trade Name Freq PRN Reason Stop Dose Admin Diatrizoate Meglum/Diatrizoate Sod 15 ml 08/12/20 06:43 08/12/20 06:47 Gastrografin 37% PO 08/12/20 06:44 15 ml ONETIME STA Administration Iopamidol 100 ml 08/12/20 06:34 08/12/20 06:35 Isovue Multipack-370 (76%) IVPUSH 08/12/20 06:35 100 ml ONETIME STA Administration Morphine Sulfate 4 mg 08/12/20 03:07 08/12/20 03:27 Morphine IM 08/12/20 03:08 Not Given ONETIME ONE Morphine Sulfate 4 mg 08/12/20 03:23 08/12/20 03:20 Morphine IVPUSH 08/12/20 03:24 4 mg ONETIME ONE Administration Morphine Sulfate 4 mg 08/12/20 07:08 08/12/20 07:21 Morphine IVPUSH 08/12/20 07:09 4 mg ONETIME ONE Administration Morphine Sulfate 4 mg 08/12/20 08:44 08/12/20 09:15 Morphine IVPUSH 08/12/20 08:45 4 mg ONETIME ONE Administration Ondansetron HCl 4 mg 08/12/20 03:07 08/12/20 03:18 Zofran IVPUSH 08/12/20 03:08 4 mg ONETIME ONE Administration Ondansetron HCl 4 mg 08/12/20 07:08 08/12/20 07:22 Zofran IVPUSH 08/12/20 07:09 4 mg ONETIME ONE Administration Ondansetron HCl 4 mg 08/12/20 08:44 08/12/20 09:15 Zofran IVPUSH 08/12/20 08:45 4 mg ONETIME ONE Administration Sucralfate 1 gm 08/12/20 08:41 08/12/20 09:28 Carafate PO 08/12/20 08:42 1 gm ONETIME ONE Administration Departure - Departure Time of Disposition: 08:46 Condition: Good Sepsis Event Note (ED) - Focused Exam Vital Signs: Vital Signs Temp Pulse Resp BP Pulse Ox 08/12/20 07:27 36.7 C 85 18 148/85 H 96 08/12/20 04:05 76 18 111/70 96 08/12/20 03:01 35.9 C L 115 H 18 143/97 H 98
[2020-08-12] MEDS ORDERED: Lactated Ringers 1,000 ML IV SCH (03:15)
[2020-08-12] MEDS: Morphine 4 MG/ML Syringe IM ONE ×2 (03:20→03:27)
[2020-08-12] MEDS ORDERED: Morphine 4 MG/ML Syringe IVPUSH ONE (03:23)
[2020-08-12 03:41] LABS: BLOOD UREA NITROGEN,BUN 10 mg/dL (7.0-18.0); CARBON DIOXIDE,CO2 23.7 mmol/L (21.0-32.0); CHLORIDE,CL 103 mmol/L (98-107); GLUCOSE RANDOM 117 mg/dL (74-106); LIPASE 113 U/L (73-393); POTASSIUM,K 3.7 mmol/L (3.5-5.1); SODIUM,NA 139 mmol/L (136-145)
--- NOTE | 2020-08-12 05:17 | CR ---
INDICATION: Epigastric pain TECHNIQUE: Portable upright AP view of the chest COMPARISON: PA and lateral chest radiographs 12/27/2018 FINDINGS: The lungs are clear. There is no sizable pleural effusion or pneumothorax. The cardiomediastinal silhouette is normal. The visualized osseous structures are unremarkable. IMPRESSION: No acute intrathoracic process. Dictated by Andrew Powell MD @ Aug 12 2020 5:14AM Signed by Dr. Andrew Powell @ Aug 12 2020 5:15AM
[2020-08-12] MEDS ORDERED: Iopamidol 755 MG/ML 500 ML Multipack Bottle IVPUSH STA (06:34)
[2020-08-12] MEDS ORDERED: Diatrizoate Meglumine/Diatrizoate Sodium 37% 30 ML Bottle PO STA (06:43)
[2020-08-12] MEDS ORDERED: Morphine 2 MG/ML SYRINGE IVPUSH ONE ×2 (07:08→08:44)
--- NOTE | 2020-08-12 08:05 | CT ---
INDICATION: Abdominal pain, emesis, 2 weeks status post gastric bypass. TECHNIQUE: CT of the abdomen and pelvis with 100 cc Isovue 370 IV contrast. A small amount of oral contrast was ingested. Coronal and sagittal reconstructions. COMPARISON: CT of the abdomen and pelvis 11/11/2019. FINDINGS: Interval postoperative changes Yoko-en-Y gastric bypass. The anastomoses appear intact without evidence of complication. No bowel dilation to suggest obstruction. No significant stool burden. Negative appendix. Small amount of free fluid in the pelvis may be physiologic or reactive. No focal fluid collection. No intraperitoneal free air. The liver, gallbladder, spleen, pancreas, and adrenal glands are negative. Hepatic and portal veins are patent. Symmetric enhancement of the kidneys. Small low-attenuation lesions in both kidneys most likely represent cysts. Tiny nonobstructing left renal calyceal stone. No hydronephrosis. No obstructing urinary calculi. The bladder, uterus, and ovaries are normal in appearance. Few mildly prominent gastrohepatic, periaortic, and mesenteric lymph nodes are likely reactive. No lymphadenopathy by size criteria. The bones are unremarkable. The lung bases are clear. IMPRESSION: 1. No acute findings in the abdomen or pelvis. 2. Interval postoperative changes Yoko-en-Y gastric bypass. No evidence of postoperative complication or bowel obstruction. Please note that all CT scans at this facility use dose modulation, iterative reconstruction, and/or weight-based dosing when appropriate to reduce radiation dose to as low as reasonably achievable. Dictated by Michelle Contreras MD @ Aug 12 2020 7:53AM Signed by Dr. Michelle Contreras @ Aug 12 2020 8:04AM
[2020-08-12] MEDS ORDERED: Sucralfate Suspension 1 GM/10 ML Cup PO ONE (08:41)
[2020-08-12] MEDS ORDERED: Pantoprazole 40 MG Tab.CR PO SCH (09:00)
--- NOTE | 2020-08-12 12:29 | PCM.HP.2 ---
H&P History of Present Illness - General Date of Service: 08/12/20 Admit Problem/Dx: Admission Diagnosis/Problem Admission Diagnosis/Problem Epigastric abdominal pain of unknown etiology - History of Present Illness Initial Comments - Free Text/Narative: This 29-year-old female with PMH of recent Yoko-en-Y on July [address] George in [place], anxiety and depression and obesity presented to the ER with worsening nausea vomiting and abdominal pain that started 08/11/2020. She reports yesterday the pain started around 3 PM in the afternoon. She said it was located to the right upper quadrant it was sharp and somewhat gnawing and dull almost like a muscle cramp right up under her right rib. The pain radiated slightly to her epigastric region. She at the time took Flexeril, oxycodone, and Zofran which she had at home. These did not help as she quickly vomited and from that point continued to vomit the rest of the evening. The pain has continued to worsen and she is not able to keep any oral intake down. She denies any fevers chills chest pain shortness of breath. Denies any left upper quadrant pain or other abdominal pain. No constipation or diarrhea no black or bloody bowel movements. She denies any urinary concerns such as dysuria or frequency urgency. She reports that she has otherwise been feeling well since surgery, she has been advancing diet per her protocol and was starting to eat mechanical soft foods including meats. She denies smoking, she quit approximately 5 months ago no alcohol use and no recreational drug use. In the ER lab work essentially normal. CT scan was obtained with oral contrast that showed interval postoperative changes from her Yoko-en-Y gastric bypass anastomosis appeared intact without evidence of complication no bowel dilation no stool burden negative appendix small amount of free fluid in pelvis no focal fluid collection or intraperitoneal free air. Liver gallbladder spleen. And adrenal glands are negative no acute findings noted in the abdomen or pelvis. Chest x-ray negative in the ER she was given 1 L LR morphine and Zofran. The ER physician contacted Dr. Larry in [facility]. Initially ER was recommending transfer but [facility] had no bed availability. Dr. Larry recommended Carafate PPI and symptom control. She also recommended an upper GI series but we are unable to do that at our facility. we will manage symptoms. Epigastric Pain Score (Numeric/FACES): 6 - Related Data Allergies/Adverse Reactions: Allergies Allergy/AdvReac Type Severity Reaction Status Date / Time adhesive Allergy Hives Verified 08/12/20 11:19 hydrocodone [From Vicodin] Allergy Irritabilit Verified 08/12/20 11:19 y latex Allergy Hives Verified 08/12/20 11:19 metoclopramide [From Reglan] Allergy Irritabilit Verified 08/12/20 11:19 y promethazine [From Phenergan] Allergy Irritabilit Verified 08/12/20 11:19 y sumatriptan [From Imitrex] Allergy Irritabilit Verified 08/12/20 11:19 y Home Medications: Home Meds Cyclobenzaprine [Flexeril] 10 mg PO TID PRN 08/12/20 [History] FLUoxetine [PROzac] 20 mg PO DAILY 08/12/20 [History] Multivit-Min/Iron/Folic Acid/K [Bariatric Mv-Iron 45 mg Cap] 1 tab PO DAILY 08/12/20 [History] Omeprazole 20 mg PO DAILY 08/12/20 [History] Ondansetron [Zofran] 4 mg PO Q6HR PRN 08/12/20 [History] oxyCODONE HCl/Acetaminophen [Oxycodone-Acetaminophen 5-325] 1 tab PO TID PRN 08/12/20 [History] Past Medical History HEENT History: Reports: Impaired Vision Other HEENT History: wears glasses Cardiovascular History: Reports: None Respiratory History: Reports: Asthma, Sleep Apnea Gastrointestinal History: Reports: GERD, Irritable Bowel Syndrome Genitourinary History: Reports: Renal Calculus 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 [employer]EDER History: Reports: Polycystic Ovaries Musculoskeletal History: Reports: None Neurological History: Reports: Migraines Psychiatric History: Reports: Anxiety, Bipolar, Depression Endocrine/Metabolic History: Reports: Obesity/BMI 30+ Hematologic History: Reports: None Immunologic History: Reports: None Oncologic (Cancer) History: Reports: None Dermatologic History: Reports: None - Infectious Disease History Infectious Disease History: Reports: Chicken Pox - Past Surgical History Head Surgeries/Procedures: Reports: None HEENT Surgical History: Reports: None Respiratory Surgical History: Reports: None GI Surgical History: Reports: Bariatric Procedure Female Surgical History: Reports: Lithotripsy/ESWL, Other (See Below) Other Female Surgeries/Procedures: Nephrostomy of scar tissue, ureterscopy Neurological Surgical History: Reports: None Social & Family History - Family History Family Medical History: No Pertinent Family History - Tobacco Use Tobacco Use Status *Q: Former Tobacco User Years of Tobacco use: 11 Packs/Tins Daily: 1 Used Tobacco, but Quit: Yes Month/Year Tobacco Last Used: 5 months ago Second Hand Smoke Exposure: No - Caffeine Use Caffeine Use: Reports: None - Recreational Drug Use Recreational Drug Use: Yes Recreational Drug Type: Reports: Other (see below) Other Recreational Drug Type: THC edibles Recreational Drug Use Frequency: Weekly H&P Review of Systems - Review of Systems: Review Of Systems: See Below General: Reports: No Symptoms. Denies: Fever, Chills, Malaise, Weakness HEENT: Reports: No Symptoms. Denies: Headaches, Sinus Congestion, Sore Throat Pulmonary: Reports: No Symptoms. Denies: Shortness of Breath, Cough, Sputum Cardiovascular: Reports: No Symptoms. Denies: Chest Pain, Edema Gastrointestinal: Reports: Abdominal Pain (Right upper quadrant), Nausea, Vomiting. Denies: Constipation, Diarrhea Genitourinary: Reports: No Symptoms. Denies: Dysuria, Frequency Musculoskeletal: Reports: No Symptoms Skin: Reports: No Symptoms Psychiatric: Reports: No Symptoms Neurological: Reports: No Symptoms Hematologic/Lymphatic: Reports: No Symptoms Immunologic: Reports: No Symptoms Exam - Exam Exam: See Below - Vital Signs Vital Signs: Last Vital Signs Temp 97.1 F 08/12/20 11:18 Pulse 86 08/12/20 11:18 Resp 17 08/12/20 11:18 BP 104/73 08/12/20 11:18 Pulse Ox 96 08/12/20 11:18 Weight: 131.995 kg - Exam Quality Assessment: DVT Prophylaxis (SCDs). No: Supplemental Oxygen General: Alert, Oriented, Cooperative HEENT: Conjunctiva Clear, Mucosa Moist & [place], Posterior Pharynx Clear Lungs: Clear to Auscultation, Normal Respiratory Effort Cardiovascular: Regular Rate, Regular Rhythm GI/Abdominal Exam: Normal Bowel Sounds, Soft, Tender (Significant tenderness to right upper quadrant positive Noble sign) Back Exam: Normal Inspection, Full Range of Motion Extremities: Normal Inspection, Normal Range of Motion, Non-Tender, No Pedal Edema Skin: Warm, Dry, Intact (6 lap sites to abdomen are healing well scabbed no erythema no signs of infection no drainage noted) Neurological: Cranial Nerves Intact Neuro Extensive - Mental Status: Alert, Oriented x3 Neuro Extensive - Motor, Sensory, Reflexes: CN II-XII Intact Psychiatric: Alert, Normal Affect, Normal Mood - Patient Data Lab Results Last 24 hrs: Laboratory Results - last 24 hr 08/12/20 08/12/20 08/12/20 Range/Units 03:15 03:15 03:15 WBC 10.70 (4.0-11.0) K/uL RBC 5.42 (4.30-5.90) M/uL Hgb 14.8 (12.0-16.0) g/dL Hct 45.5 (36.0-46.0) % MCV 83.9 (80.0-98.0) fL MCH 27.3 (27.0-32.0) pg MCHC 32.5 (31.0-37.0) g/dL RDW Std Deviation 42.8 (28.0-62.0) fl RDW Coeff of Bandar 14 (11.0-15.0) % Plt Count 404 H (150-400) K/uL MPV 11.80 (7.40-12.00) fL Neut % (Auto) 60.1 (48.0-80.0) % Lymph % (Auto) 31.3 (16.0-40.0) % Dougherty % (Auto) 6.0 (0.0-15.0) % Eos % (Auto) 2.1 (0.0-7.0) % Baso % (Auto) 0.5 (0.0-1.5) % Neut # (Auto) 6.4 H (1.4-5.7) K/uL Lymph # (Auto) 3.4 H (0.6-2.4) K/uL Dougherty # (Auto) 0.6 (0.0-0.8) K/uL Eos # (Auto) 0.2 (0.0-0.7) K/uL Baso # (Auto) 0.1 (0.0-0.1) K/uL Nucleated RBC % 0.0 /100WBC Nucleated RBCs # 0 K/uL Lactate 0.8 (0.20-2.00) mmol/L Sodium 139 (136-145) mmol/L Potassium 3.7 (3.5-5.1) mmol/L Chloride 103 (98-107) mmol/L Carbon Dioxide 23.7 (21.0-32.0) mmol/L BUN 10 (7.0-18.0) mg/dL Creatinine 1.0 (0.6-1.0) mg/dL Est Cr Clr Drug Dosing 74.69 mL/min Estimated GFR (MDRD) > 60.0 ml/min Glucose 117 H (74-106) mg/dL Calcium 9.3 (8.5-10.1) mg/dL Total Bilirubin 0.5 (0.2-1.0) mg/dL AST 20 (15-37) IU/L ALT 62 (14-63) IU/L Alkaline Phosphatase 91 (46-116) U/L Total Protein 8.2 (6.4-8.2) g/dL Albumin 3.9 (3.4-5.0) g/dL Globulin 4.3 H (2.6-4.0) g/dL Albumin/Globulin Ratio 0.9 (0.9-1.6) Lipase 113 (73-393) U/L HCG, Qual (NEG) SARS-CoV-2 RNA (BETTY) (NEGATIVE) 08/12/20 08/12/20 Range/Units 03:15 09:15 WBC (4.0-11.0) K/uL RBC (4.30-5.90) M/uL Hgb (12.0-16.0) g/dL Hct (36.0-46.0) % MCV (80.0-98.0) fL MCH (27.0-32.0) pg MCHC (31.0-37.0) g/dL RDW Std Deviation (28.0-62.0) fl RDW Coeff of Bandar (11.0-15.0) % Plt Count (150-400) K/uL MPV (7.40-12.00) fL Neut % (Auto) (48.0-80.0) % Lymph % (Auto) (16.0-40.0) % Dougherty % (Auto) (0.0-15.0) % Eos % (Auto) (0.0-7.0) % Baso % (Auto) (0.0-1.5) % Neut # (Auto) (1.4-5.7) K/uL Lymph # (Auto) (0.6-2.4) K/uL Dougherty # (Auto) (0.0-0.8) K/uL Eos # (Auto) (0.0-0.7) K/uL Baso # (Auto) (0.0-0.1) K/uL Nucleated RBC % /100WBC Nucleated RBCs # K/uL Lactate (0.20-2.00) mmol/L Sodium (136-145) mmol/L Potassium (3.5-5.1) mmol/L Chloride (98-107) mmol/L Carbon Dioxide (21.0-32.0) mmol/L BUN (7.0-18.0) mg/dL Creatinine (0.6-1.0) mg/dL Est Cr Clr Drug Dosing mL/min Estimated GFR (MDRD) ml/min Glucose (74-106) mg/dL Calcium (8.5-10.1) mg/dL Total Bilirubin (0.2-1.0) mg/dL AST (15-37) IU/L ALT (14-63) IU/L Alkaline Phosphatase (46-116) U/L Total Protein (6.4-8.2) g/dL Albumin (3.4-5.0) g/dL Globulin (2.6-4.0) g/dL Albumin/Globulin Ratio (0.9-1.6) Lipase (73-393) U/L HCG, Qual NEGATIVE (NEG) SARS-CoV-2 RNA (BETTY) NEGATIVE (NEGATIVE) Result Diagrams: 08/12/20 03:15 08/12/20 03:15 Sepsis Event Note - Evaluation Sepsis Screening Result: No Definite Risk - Focused Exam Vital Signs: Vital Signs Temp Pulse Resp BP Pulse Ox 08/12/20 11:18 97.1 F 86 17 104/73 96 08/12/20 10:54 87 16 115/68 95 08/12/20 09:10 72 18 134/76 95 08/12/20 08:37 85 16 154/89 H 93 L 08/12/20 08:07 81 18 152/77 H 96 08/12/20 07:27 98.1 F 85 18 148/85 H 96 08/12/20 04:05 76 18 111/70 96 08/12/20 03:01 96.6 F L 115 H 18 143/97 H 98 - Problem List (1) Right upper quadrant abdominal pain SNOMED Code(s): 834771810 ICD Code: R10.11 - RIGHT UPPER QUADRANT PAIN Status: Acute Current Visit: Yes (2) Nausea and vomiting SNOMED Code(s): 89927424 ICD Code: R11.2 - NAUSEA WITH VOMITING, UNSPECIFIED Status: Acute Current Visit: Yes Qualifiers: Vomiting Intractability: intractable (3) History of nephrolithiasis SNOMED Code(s): 893964597 ICD Code: Z87.442 - PERSONAL HISTORY OF URINARY CALCULI Status: Acute Current Visit: No (4) Depression SNOMED Code(s): 30334722 ICD Code: F32.9 - MAJOR DEPRESSIVE DISORDER, SINGLE EPISODE, UNSPECIFIED Status: Acute Current Visit: Yes (5) History of Yoko-en-Y gastric bypass SNOMED Code(s): 298863303 ICD Code: Z98.84 - BARIATRIC SURGERY STATUS Status: Chronic Current Visit: Yes Problem List Initiated/Reviewed/Updated: Yes Orders Last 24hrs: Active Orders 24 hr Category Date Time Status Admission Status [Patient Status] [ADT] Stat ADT 08/12/20 08:41 Active Antiembolic Devices [RC] PER UNIT ROUTINE Care 08/12/20 12:27 Ordered Intake and Output [RC] QSHIFT Care 08/12/20 12:26 Ordered Oxygen Therapy [RC] PRN Care 08/12/20 12:26 Ordered Up With Assistance [RC] ASDIRECTED Care 08/12/20 12:26 Ordered VTE/DVT Education [RC] PER UNIT ROUTINE Care 08/12/20 12:26 Ordered Vital Signs [RC] Q4H Care 08/12/20 12:26 Ordered Nothing Per Oral Diet [DIET] Diet 08/12/20 Breakfast Active CBC WITH AUTO DIFF [HEME] AM Lab 08/13/20 05:11 Ordered COMPREHENSIVE METABOLIC PN,CMP [CHEM] AM Lab 08/13/20 05:11 Ordered MAGNESIUM [CHEM] AM Lab 08/13/20 05:11 Ordered Lactated Ringers [Ringers, Lactated] 1,000 ml Med 08/12/20 03:15 Active IV ASDIRECTED Lactated Ringers [Ringers, Lactated] 1,000 ml Med 08/12/20 12:30 Ordered IV Q8H Ondansetron [Zofran] Med 08/12/20 12:26 Ordered 4 mg IVPUSH Q4H PRN Pantoprazole [ProTONIX IV] Med 08/12/20 21:00 Ordered 40 mg IV Q12HR Sodium Chloride 0.9% [Saline Flush] Med 08/12/20 12:28 Ordered 2.5 ml FLUSH ASDIRECTED PRN Sucralfate [Carafate] Med 08/12/20 12:28 Ordered 1 gm PO QIDACANDBED Saline Lock Insert [OM.PC] Routine Oth 08/12/20 12:28 Ordered Sequential Compression Device [OM.PC] Per Unit Routine Oth 08/12/20 12:26 Ordered Resuscitation Status Routine Resus Stat 08/12/20 12:26 Ordered Medication Orders Lactated Ringer's (Ringers, Lactated) 1,000 mls @ 999 mls/hr IV ASDIRECTED [facility] Last Admin: 08/12/20 03:19 Dose: 999 mls/hr Documented by: WICHO Lactated Ringer's (Ringers, Lactated) 1,000 mls @ 125 mls/hr IV Q8H JATIN Ondansetron HCl (Zofran) 4 mg IVPUSH Q4H PRN PRN Reason: Nausea Pantoprazole Sodium (Protonix Iv) 40 mg IV Q12HR JATIN Sodium Chloride (Saline Flush) 2.5 ml FLUSH ASDIRECTED PRN PRN Reason: Keep Vein Open Sucralfate (Carafate) 1 gm PO QIDACANDBED [facility] Assessment/Plan Comment:: This 29-year-old female was admitted with right upper quadrant and epigastric pain along with nausea and vomiting 1. RUQ pain/nausea vomiting -Consider postoperative pain but CT is negative will monitor closely. -Possibly consider biliary dyskinesia has family history of significant gallbladder disease including cholelithiasis. She denies any history of biliary concerns. -LFTs and bilirubin normal -We will keep n.p.o. for now -Protonix as well as Carafate as per recommended by Dr. George -Dilaudid 1 mg every 3 hours as needed pain -Zofran as needed nausea -I have left a message with Dr. Larry's office regarding admission and further work-up. Awaiting callback. VTE prophylaxis: SCDs CODE STATUS: full code Dispo 1 to 2 days pending provement - Mortality Measure Prognosis:: Good
[2020-08-12] MEDS: Sucralfate Suspension 1 GM/10 ML Cup PO SCH ×3 (12:41→21:13)
[2020-08-12] MEDS: Lactated Ringers 1,000 ML IV SCH ×2 (12:42→22:22)
[2020-08-12] MEDS: Ondansetron 4 MG/2 ML SDV IVPUSH PRN ×2 (13:43→17:45)
[2020-08-12] MEDS: HYDROmorphone 1 MG/ML Syringe IVPUSH PRN ×3 (14:01→21:08)
[2020-08-12] MEDS: Cyclobenzaprine 10 MG Tab PO PRN (14:56)
--- NOTE | 2020-08-12 19:00 | US ---
INDICATION: Right upper quadrant abdomen pain TECHNIQUE: Ultrasound abdomen limited. Sonographic images of the right upper quadrant were obtained using russo-scale and color Doppler images. COMPARISON: CT abdomen pelvis August 12, 2020. FINDINGS: Liver: Mildly enlarged measuring 21 cm in greatest dimension. Moderately echogenic suggesting fatty infiltration. No masses. No intrahepatic biliary dilatation. Gallbladder: No stones. Small amount of sludge is present. Normal wall thickness. No pericholecystic fluid. Common bile duct: Mildly dilated at 7 mm mm. No ductal stone or mass visualized. Pancreas: Normal. Right kidney: Normal in size. Normal echotexture and cortex. No suspicious masses, stones, or hydronephrosis. Vasculature: Proximal abdominal aorta and IVC are normal. IMPRESSION: 1. Mild hepatomegaly and hepatic steatosis. 2. Small amount of gallbladder sludge. Mild nonspecific prominence of the common bile duct. No other signs of acute cholecystitis. Dictated by Wilberto Mcclure MD @ Aug 12 2020 6:54PM Signed by Dr. Wilberto Mcclure @ Aug 12 2020 6:58PM
[2020-08-12] MEDS: Pantoprazole 40 MG Vial IV SCH (21:08)
[2020-08-13] MEDS: Ondansetron 4 MG/2 ML SDV IVPUSH PRN ×5 (00:09→23:59)
[2020-08-13 05:30] LABS: BLOOD UREA NITROGEN,BUN 7 mg/dL (7.0-18.0); CARBON DIOXIDE,CO2 26.1 mmol/L (21.0-32.0); CHLORIDE,CL 106 mmol/L (98-107); GLUCOSE RANDOM 76 mg/dL (74-106); POTASSIUM,K 3.6 mmol/L (3.5-5.1); SODIUM,NA 141 mmol/L (136-145)
[2020-08-13] MEDS: Lactated Ringers 1,000 ML IV SCH ×3 (06:17→17:08)
[2020-08-13] MEDS: Sucralfate Suspension 1 GM/10 ML Cup PO SCH ×4 (07:03→20:46)
[2020-08-13] MEDS: HYDROmorphone 1 MG/ML Syringe IVPUSH PRN ×6 (07:44→23:59)
--- NOTE | 2020-08-13 08:58 | PCM.PN ---
- General Info Date of Service: 08/13/20 Admission Dx/Problem (Free Text): Admission Diagnosis/Problem Admission Diagnosis/Problem Epigastric abdominal pain of unknown etiology Subjective Update: Continues to have right upper quadrant pain that is dull gnawing and causes nausea. Denies any chest pain no right sided abdominal pain voiding well reports urine is dark and smells. Denies any dysuria frequency urgency. Denies any fevers or chills. She is up ambulating in her room and shower this morning per self. Functional Status: Reports: Pain Controlled (Dilaudid is helping), Ambulating, Urinating. Denies: Tolerating Diet - Review of Systems General: Reports: No Symptoms. Denies: Fatigue, Malaise HEENT: Reports: No Symptoms. Denies: Headaches, Sore Throat, Visual Changes Pulmonary: Reports: No Symptoms. Denies: Shortness of Breath Cardiovascular: Reports: No Symptoms. Denies: Chest Pain Gastrointestinal: Reports: Abdominal Pain (Right upper quadrant), Nausea Genitourinary: Reports: No Symptoms. Denies: Dysuria, Frequency, Burning Musculoskeletal: Reports: No Symptoms Skin: Reports: No Symptoms Neurological: Reports: No Symptoms Psychiatric: Reports: No Symptoms - Patient Data Vitals - Most Recent: Last Vital Signs Temp 97.4 F 08/13/20 07:24 Pulse 76 08/13/20 07:24 Resp 16 08/13/20 07:24 BP 106/72 08/13/20 07:24 Pulse Ox 97 08/13/20 07:24 Weight - Most Recent: 131.995 kg I&O - Last 24 Hours: Intake & Output 08/12/20 08/13/20 08/13/20 22:59 06:59 14:59 Intake Total 0 1842 Output Total 250 300 Balance -250 1542 Lab Results Last 24 Hours: Laboratory Results - last 24 hr 08/12/20 08/12/20 08/13/20 Range/Units 03:15 09:15 04:53 WBC 6.17 (4.0-11.0) K/uL RBC 4.71 (4.30-5.90) M/uL Hgb 12.4 (12.0-16.0) g/dL Hct 40.4 (36.0-46.0) % MCV 85.8 (80.0-98.0) fL MCH 26.3 L (27.0-32.0) pg MCHC 30.7 L (31.0-37.0) g/dL RDW Std Deviation 43.4 (28.0-62.0) fl RDW Coeff of Bandar 14 (11.0-15.0) % Plt Count 213 (150-400) K/uL MPV 10.50 (7.40-12.00) fL Neut % (Auto) 50.5 (48.0-80.0) % Lymph % (Auto) 40.7 H (16.0-40.0) % Benzie % (Auto) 5.2 (0.0-15.0) % Eos % (Auto) 3.1 (0.0-7.0) % Baso % (Auto) 0.5 (0.0-1.5) % Neut # (Auto) 3.1 (1.4-5.7) K/uL Lymph # (Auto) 2.5 H (0.6-2.4) K/uL Benzie # (Auto) 0.3 (0.0-0.8) K/uL Eos # (Auto) 0.2 (0.0-0.7) K/uL Baso # (Auto) 0.0 (0.0-0.1) K/uL Nucleated RBC % 0.0 /100WBC Nucleated RBCs # 0 K/uL Sodium (136-145) mmol/L Potassium (3.5-5.1) mmol/L Chloride (98-107) mmol/L Carbon Dioxide (21.0-32.0) mmol/L BUN (7.0-18.0) mg/dL Creatinine (0.6-1.0) mg/dL Est Cr Clr Drug Dosing mL/min Estimated GFR (MDRD) ml/min Glucose (74-106) mg/dL Calcium (8.5-10.1) mg/dL Magnesium 2.0 (1.8-2.4) mg/dL Total Bilirubin (0.2-1.0) mg/dL AST (15-37) IU/L ALT (14-63) IU/L Alkaline Phosphatase (46-116) U/L Total Protein (6.4-8.2) g/dL Albumin (3.4-5.0) g/dL Globulin (2.6-4.0) g/dL Albumin/Globulin Ratio (0.9-1.6) SARS-CoV-2 RNA (BETTY) NEGATIVE (NEGATIVE) 08/13/20 Range/Units 04:53 WBC (4.0-11.0) K/uL RBC (4.30-5.90) M/uL Hgb (12.0-16.0) g/dL Hct (36.0-46.0) % MCV (80.0-98.0) fL MCH (27.0-32.0) pg MCHC (31.0-37.0) g/dL RDW Std Deviation (28.0-62.0) fl RDW Coeff of Bandar (11.0-15.0) % Plt Count (150-400) K/uL MPV (7.40-12.00) fL Neut % (Auto) (48.0-80.0) % Lymph % (Auto) (16.0-40.0) % Benzie % (Auto) (0.0-15.0) % Eos % (Auto) (0.0-7.0) % Baso % (Auto) (0.0-1.5) % Neut # (Auto) (1.4-5.7) K/uL Lymph # (Auto) (0.6-2.4) K/uL Benzie # (Auto) (0.0-0.8) K/uL Eos # (Auto) (0.0-0.7) K/uL Baso # (Auto) (0.0-0.1) K/uL Nucleated RBC % /100WBC Nucleated RBCs # K/uL Sodium 141 (136-145) mmol/L Potassium 3.6 (3.5-5.1) mmol/L Chloride 106 (98-107) mmol/L Carbon Dioxide 26.1 (21.0-32.0) mmol/L BUN 7 (7.0-18.0) mg/dL Creatinine 0.8 (0.6-1.0) mg/dL Est Cr Clr Drug Dosing 93.37 mL/min Estimated GFR (MDRD) > 60.0 ml/min Glucose 76 (74-106) mg/dL Calcium 8.4 L (8.5-10.1) mg/dL Magnesium 1.7 L (1.8-2.4) mg/dL Total Bilirubin 0.5 (0.2-1.0) mg/dL AST 24 (15-37) IU/L ALT 54 (14-63) IU/L Alkaline Phosphatase 66 (46-116) U/L Total Protein 6.6 (6.4-8.2) g/dL Albumin 3.0 L (3.4-5.0) g/dL Globulin 3.6 (2.6-4.0) g/dL Albumin/Globulin Ratio 0.8 L (0.9-1.6) SARS-CoV-2 RNA (BETTY) (NEGATIVE) Med Orders - Current: Current Medications Cyclobenzaprine HCl (Flexeril) 10 mg PO TID PRN PRN Reason: Muscle Spasm Last Admin: 08/12/20 14:56 Dose: 10 mg Documented by: Fluoxetine HCl (Prozac) 20 mg PO DAILY [facility] Hydromorphone HCl (Dilaudid) 1 mg IVPUSH Q3H PRN PRN Reason: Pain Last Admin: 08/13/20 07:44 Dose: 1 mg Documented by: Lactated Ringer's (Ringers, Lactated) 1,000 mls @ 125 mls/hr IV Q8H [facility] Last Admin: 08/13/20 06:17 Dose: 125 mls/hr Documented by: Ondansetron HCl (Zofran) 4 mg IVPUSH Q4H PRN PRN Reason: Nausea Last Admin: 08/13/20 07:45 Dose: 4 mg Documented by: Pantoprazole Sodium (Protonix Iv) 40 mg IV Q12HR [facility] Last Admin: 08/12/20 21:08 Dose: 40 mg Documented by: Sodium Chloride (Saline Flush) 2.5 ml FLUSH ASDIRECTED PRN PRN Reason: Keep Vein Open Sucralfate (Carafate) 1 gm PO QIDACANDBED [facility] Last Admin: 08/13/20 07:03 Dose: 1 gm Documented by: Discontinued Medications Diatrizoate Meglum/Diatrizoate Sod (Gastrografin 37%) 15 ml PO ONETIME STA Stop: 08/12/20 06:44 Last Admin: 08/12/20 06:47 Dose: 15 ml Documented by: Lactated Ringer's (Ringers, Lactated) 1,000 mls @ 999 mls/hr IV ASDIRECTED [facility] Last Admin: 08/12/20 03:19 Dose: 999 mls/hr Documented by: Iopamidol (Isovue Multipack-370 (76%)) 100 ml IVPUSH ONETIME STA Stop: 08/12/20 06:35 Last Admin: 08/12/20 06:35 Dose: 100 ml Documented by: Morphine Sulfate (Morphine) 4 mg IM ONETIME ONE Stop: 08/12/20 03:08 Last Admin: 08/12/20 03:27 Dose: Not Given Documented by: Morphine Sulfate (Morphine) 4 mg IVPUSH ONETIME ONE Stop: 08/12/20 03:24 Last Admin: 08/12/20 03:20 Dose: 4 mg Documented by: Morphine Sulfate (Morphine) 4 mg IVPUSH ONETIME ONE Stop: 08/12/20 07:09 Last Admin: 08/12/20 07:21 Dose: 4 mg Documented by: Morphine Sulfate (Morphine) 4 mg IVPUSH ONETIME ONE Stop: 08/12/20 08:45 Last Admin: 08/12/20 09:15 Dose: 4 mg Documented by: Ondansetron HCl (Zofran) 4 mg IVPUSH ONETIME ONE Stop: 08/12/20 03:08 Last Admin: 08/12/20 03:18 Dose: 4 mg Documented by: Ondansetron HCl (Zofran) 4 mg IVPUSH ONETIME ONE Stop: 08/12/20 07:09 Last Admin: 08/12/20 07:22 Dose: 4 mg Documented by: Ondansetron HCl (Zofran) 4 mg IVPUSH ONETIME ONE Stop: 08/12/20 08:45 Last Admin: 08/12/20 09:15 Dose: 4 mg Documented by: Pantoprazole Sodium (Protonix) 40 mg PO DAILY [facility] Last Admin: 08/12/20 09:15 Dose: 40 mg Documented by: Sodium Chloride (Saline Flush) 10 ml FLUSH ASDIRECTED PRN PRN Reason: Keep Vein Open Last Admin: 08/12/20 07:22 Dose: 10 ml Documented by: Sodium Chloride (Saline Flush) 2.5 ml FLUSH ASDIRECTED PRN PRN Reason: Keep Vein Open Last Admin: 08/12/20 07:22 Dose: 2.5 ml Documented by: Sucralfate (Carafate) 1 gm PO ONETIME ONE Stop: 08/12/20 08:42 Last Admin: 08/12/20 09:28 Dose: 1 gm Documented by: - Exam Quality Assessment: DVT Prophylaxis (SCDs and ambulation). No: Supplemental Oxygen General: Alert, Oriented, Cooperative Neck: Supple Lungs: Clear to Auscultation, Normal Respiratory Effort Cardiovascular: Regular Rate, Regular Rhythm GI/Abdominal Exam: Normal Bowel Sounds, Soft, Tender (Continues to have positive Noble sign to right upper quadrant with significant tenderness.) Back Exam: Normal Inspection, Full Range of Motion Extremities: Normal Inspection, Normal Range of Motion, Non-Tender, No Pedal Edema Neurological: No New Focal Deficit Psy/Mental Status: Alert, Normal Affect, Normal Mood Sepsis Event Note - Evaluation Sepsis Screening Result: No Definite Risk - Focused Exam Vital Signs: Vital Signs Temp Pulse Resp BP Pulse Ox 08/13/20 07:24 97.4 F 76 16 106/72 97 08/13/20 04:14 97.5 F 65 18 115/81 96 08/13/20 00:15 97.1 F 74 17 100/55 L 97 - Problem List & Annotations (1) Right upper quadrant abdominal pain SNOMED Code(s): 966453200 Code(s): R10.11 - RIGHT UPPER QUADRANT PAIN Status: Acute Current Visit: Yes (2) Nausea and vomiting SNOMED Code(s): 94700696 Code(s): R11.2 - NAUSEA WITH VOMITING, UNSPECIFIED Status: Acute Current Visit: Yes Qualifiers: Vomiting Intractability: intractable (3) History of nephrolithiasis SNOMED Code(s): 003075862 Code(s): Z87.442 - PERSONAL HISTORY OF URINARY CALCULI Status: Acute Current Visit: No (4) Depression SNOMED Code(s): 91343539 Code(s): F32.9 - MAJOR DEPRESSIVE DISORDER, SINGLE EPISODE, UNSPECIFIED Status: Acute Current Visit: Yes (5) History of Yoko-en-Y gastric bypass SNOMED Code(s): 360871173 Code(s): Z98.84 - BARIATRIC SURGERY STATUS Status: Chronic Current Visit: Yes - Problem List Review Problem List Initiated/Reviewed/Updated: Yes - My Orders Last 24 Hours: My Active Orders 08/12/20 12:26 Intake and Output [RC] QSHIFT Oxygen Therapy [RC] PRN Up With Assistance [RC] ASDIRECTED VTE/DVT Education [RC] PER UNIT ROUTINE Vital Signs [RC] Q4H Ondansetron [Zofran] 4 mg IVPUSH Q4H PRN Sequential Compression Device [OM.PC] Per Unit Routine Resuscitation Status Routine 08/12/20 12:27 Antiembolic Devices [RC] PER UNIT ROUTINE 08/12/20 12:28 Sodium Chloride 0.9% [Saline Flush] 2.5 ml FLUSH ASDIRECTED PRN Sucralfate [Carafate] 1 gm PO QIDACANDBED Saline Lock Insert [OM.PC] Routine 08/12/20 12:30 Lactated Ringers [Ringers, Lactated] 1,000 ml IV Q8H 08/12/20 13:40 HYDROmorphone [Dilaudid] 1 mg IVPUSH Q3H PRN 08/12/20 14:18 Cyclobenzaprine [Flexeril] 10 mg PO TID PRN 08/12/20 21:00 Pantoprazole [ProTONIX IV] 40 mg IV Q12HR 08/13/20 08:57 UA RFX JESUS AND CULT IF INDIC [URIN] Urgent 08/13/20 09:00 FLUoxetine [PROzac] 20 mg PO DAILY - Plan Plan:: This 29-year-old female was admitted with right upper quadrant and epigastric pain along with nausea and vomiting 1. RUQ pain/nausea vomiting -Consider postoperative pain but CT is negative will monitor closely. -Possibly consider biliary dyskinesia has family history of significant gallbladder disease including cholelithiasis. She denies any history of biliary concerns. -LFTs and bilirubin continue to be normal -We will keep n.p.o. for now, did try some ice but had sharp right upper pain after -Protonix as well as Carafate -Dilaudid 1 mg every 3 hours as needed pain -Zofran as needed nausea -UA negative -Right upper quadrant ultrasound ultrasound reveals mildly enlarged liver 21 cm with hepatic steatosis. Small amount of gallbladder sludge mild nonspecific prominence of the common bile duct no other signs of acute cholecystitis. -Spoke with Dr. Larry this morning. She would like to review it is, will sat down along with us. She feels imaging and lab work essentially normal shortness, her pain. She will contact me once she has reviewed. This information shared with Katerin. VTE prophylaxis: SCDs CODE STATUS: full code Dispo 1 to 2 days pending improvement
[2020-08-13] MEDS ORDERED: Magnesium Sulfate/Water 2 GM/50 ML BAG IV ONE (09:01)
[2020-08-13] MEDS: FLUoxetine 20 MG Cap PO SCH (09:05)
[2020-08-13] MEDS: Pantoprazole 40 MG Vial IV SCH ×2 (09:05→20:45)
--- NOTE | 2020-08-13 18:07 | PCM.SN.2 ---
- Free Text/Narrative Note: SPoke with Dr Larry this evening, she reviewed images, no concerns. Recommended Flexeril which she is already on and then possibly Valium low dose. She wants to see her at her appointment next week 08/18. Consider level 1 CL diet on discharge. Repeat LFTs and lactic acid in am.
[2020-08-14] MEDS: Lactated Ringers 1,000 ML IV SCH ×4 (00:02→17:53)
[2020-08-14] MEDS: HYDROmorphone 1 MG/ML Syringe IVPUSH PRN ×5 (03:48→21:01)
[2020-08-14 05:59] LABS: BLOOD UREA NITROGEN,BUN 4 mg/dL (7.0-18.0); CARBON DIOXIDE,CO2 26.8 mmol/L (21.0-32.0); CHLORIDE,CL 105 mmol/L (98-107); GLUCOSE RANDOM 79 mg/dL (74-106); POTASSIUM,K 3.6 mmol/L (3.5-5.1); SODIUM,NA 140 mmol/L (136-145)
[2020-08-14] MEDS: Ondansetron 4 MG/2 ML SDV IVPUSH PRN ×3 (07:02→18:46)
[2020-08-14] MEDS: Sucralfate Suspension 1 GM/10 ML Cup PO SCH ×4 (07:02→21:00)
[2020-08-14] MEDS ORDERED: Ondansetron 4 MG/2 ML SDV IVPUSH ONE (08:24)
[2020-08-14] MEDS: Pantoprazole 40 MG Vial IV SCH ×2 (08:43→21:01)
[2020-08-14] MEDS: FLUoxetine 20 MG Cap PO SCH (08:46)
--- NOTE | 2020-08-14 09:48 | PCM.PN ---
- General Info Date of Service: 08/14/20 Admission Dx/Problem (Free Text): Admission Diagnosis/Problem Admission Diagnosis/Problem Epigastric abdominal pain of unknown etiology Subjective Update: Continues to have right upper quadrant pain that is gnawing and constant worsened by any intake of fluids. She denies any chest pain or shortness of breath. She is passing gas has not had a bowel movement in the last couple days as she has not eaten in the last 3 to 4 days. I did speak with mom over speaker phone with concerns of pain she reports that significant family history of gallbladder issues and gallbladder not functioning in multiple family members. She was reassured that lab work at this time remained stable. And that consult to a general surgeon here on recommendation of Dr. Larry is in process. Functional Status: Reports: Ambulating, Urinating. Denies: Pain Controlled, Tolerating Diet - Review of Systems General: Reports: Malaise HEENT: Reports: Other (Dry mouth) Pulmonary: Reports: No Symptoms. Denies: Shortness of Breath Cardiovascular: Reports: No Symptoms. Denies: Chest Pain Gastrointestinal: Reports: Abdominal Pain (Right upper quadrant), Nausea Genitourinary: Reports: No Symptoms. Denies: Dysuria, Frequency Musculoskeletal: Reports: No Symptoms Skin: Reports: No Symptoms Neurological: Reports: No Symptoms Psychiatric: Reports: No Symptoms - Patient Data Vitals - Most Recent: Last Vital Signs Temp 96.8 F L 08/14/20 07:30 Pulse 73 08/14/20 07:30 Resp 16 08/14/20 07:30 BP 148/85 H 08/14/20 07:30 Pulse Ox 98 08/14/20 07:30 Weight - Most Recent: 131.995 kg I&O - Last 24 Hours: Intake & Output 08/13/20 08/14/20 08/14/20 22:59 06:59 14:59 Intake Total 0 120 Output Total 1050 0 Balance -1050 120 Lab Results Last 24 Hours: Laboratory Results - last 24 hr 08/13/20 08/14/20 08/14/20 Range/Units 11:15 05:18 05:18 WBC 6.50 (4.0-11.0) K/uL RBC 4.61 (4.30-5.90) M/uL Hgb 12.2 (12.0-16.0) g/dL Hct 39.7 (36.0-46.0) % MCV 86.1 (80.0-98.0) fL MCH 26.5 L (27.0-32.0) pg MCHC 30.7 L (31.0-37.0) g/dL RDW Std Deviation 43.2 (28.0-62.0) fl RDW Coeff of Bandar 14 (11.0-15.0) % Plt Count 227 (150-400) K/uL MPV 10.60 (7.40-12.00) fL Neut % (Auto) 46.8 L (48.0-80.0) % Lymph % (Auto) 41.5 H (16.0-40.0) % [place]ough % (Auto) 8.6 (0.0-15.0) % Eos % (Auto) 2.8 (0.0-7.0) % Baso % (Auto) 0.3 (0.0-1.5) % Neut # (Auto) 3.0 (1.4-5.7) K/uL Lymph # (Auto) 2.7 H (0.6-2.4) K/uL [place]ough # (Auto) 0.6 (0.0-0.8) K/uL Eos # (Auto) 0.2 (0.0-0.7) K/uL Baso # (Auto) 0.0 (0.0-0.1) K/uL Nucleated RBC % 0.0 /100WBC Nucleated RBCs # 0 K/uL Lactate (0.20-2.00) mmol/L Sodium 140 (136-145) mmol/L Potassium 3.6 (3.5-5.1) mmol/L Chloride 105 (98-107) mmol/L Carbon Dioxide 26.8 (21.0-32.0) mmol/L BUN 4 L (7.0-18.0) mg/dL Creatinine 0.8 (0.6-1.0) mg/dL Est Cr Clr Drug Dosing 93.37 mL/min Estimated GFR (MDRD) > 60.0 ml/min Glucose 79 (74-106) mg/dL Calcium 8.3 L (8.5-10.1) mg/dL Magnesium 1.8 (1.8-2.4) mg/dL Total Bilirubin 0.5 (0.2-1.0) mg/dL AST 36 (15-37) IU/L ALT 72 H (14-63) IU/L Alkaline Phosphatase 66 (46-116) U/L Total Protein 6.5 (6.4-8.2) g/dL Albumin 2.9 L (3.4-5.0) g/dL Globulin 3.6 (2.6-4.0) g/dL Albumin/Globulin Ratio 0.8 L (0.9-1.6) Urine Color YELLOW Urine Appearance CLEAR Urine pH 7.0 (5.0-8.0) Ur Specific [place] 1.020 (1.001-1.035) Urine Protein NEGATIVE (NEGATIVE) mg/dL Urine Glucose (UA) NEGATIVE (NEGATIVE) mg/dL Urine Ketones 40 H (NEGATIVE) mg/dL Urine Occult Blood NEGATIVE (NEGATIVE) Urine Nitrite NEGATIVE (NEGATIVE) Urine Bilirubin NEGATIVE (NEGATIVE) Urine Urobilinogen 0.2 (<2.0) EU/dL Ur Leukocyte Esterase NEGATIVE (NEGATIVE) 08/14/20 Range/Units 05:18 WBC (4.0-11.0) K/uL RBC (4.30-5.90) M/uL Hgb (12.0-16.0) g/dL Hct (36.0-46.0) % MCV (80.0-98.0) fL MCH (27.0-32.0) pg MCHC (31.0-37.0) g/dL RDW Std Deviation (28.0-62.0) fl RDW Coeff of Bandar (11.0-15.0) % Plt Count (150-400) K/uL MPV (7.40-12.00) fL Neut % (Auto) (48.0-80.0) % Lymph % (Auto) (16.0-40.0) % [place]cd[place]ough % (Auto) (0.0-15.0) % Eos % (Auto) (0.0-7.0) % Baso % (Auto) (0.0-1.5) % Neut # (Auto) (1.4-5.7) K/uL Lymph # (Auto) (0.6-2.4) K/uL [place]ough # (Auto) (0.0-0.8) K/uL Eos # (Auto) (0.0-0.7) K/uL Baso # (Auto) (0.0-0.1) K/uL Nucleated RBC % /100WBC Nucleated RBCs # K/uL Lactate 0.7 (0.20-2.00) mmol/L Sodium (136-145) mmol/L Potassium (3.5-5.1) mmol/L Chloride (98-107) mmol/L Carbon Dioxide (21.0-32.0) mmol/L BUN (7.0-18.0) mg/dL Creatinine (0.6-1.0) mg/dL Est Cr Clr Drug Dosing mL/min Estimated GFR (MDRD) ml/min Glucose (74-106) mg/dL Calcium (8.5-10.1) mg/dL Magnesium (1.8-2.4) mg/dL Total Bilirubin (0.2-1.0) mg/dL AST (15-37) IU/L ALT (14-63) IU/L Alkaline Phosphatase (46-116) U/L Total Protein (6.4-8.2) g/dL Albumin (3.4-5.0) g/dL Globulin (2.6-4.0) g/dL Albumin/Globulin Ratio (0.9-1.6) Urine Color Urine Appearance Urine pH (5.0-8.0) Ur Specific [place] (1.001-1.035) Urine Protein (NEGATIVE) mg/dL Urine Glucose (UA) (NEGATIVE) mg/dL Urine Ketones (NEGATIVE) mg/dL Urine Occult Blood (NEGATIVE) Urine Nitrite (NEGATIVE) Urine Bilirubin (NEGATIVE) Urine Urobilinogen (<2.0) EU/dL Ur Leukocyte Esterase (NEGATIVE) Med Orders - Current: Current Medications Cyclobenzaprine HCl (Flexeril) 10 mg PO TID PRN PRN Reason: Muscle Spasm Last Admin: 08/12/20 14:56 Dose: 10 mg Documented by: Diazepam (Valium) 2 mg PO TID PRN PRN Reason: Pain Fluoxetine HCl (Prozac) 20 mg PO DAILY [facility] Last Admin: 08/14/20 08:46 Dose: 20 mg Documented by: Hydromorphone HCl (Dilaudid) 1 mg IVPUSH Q3H PRN PRN Reason: Pain Last Admin: 08/14/20 08:29 Dose: 1 mg Documented by: Lactated Ringer's (Ringers, Lactated) 1,000 mls @ 125 mls/hr IV Q8H [facility] Last Admin: 08/14/20 08:51 Dose: 125 mls/hr Documented by: Ondansetron HCl (Zofran) 4 mg IVPUSH Q4H PRN PRN Reason: Nausea Last Admin: 08/14/20 07:02 Dose: 4 mg Documented by: Pantoprazole Sodium (Protonix Iv) 40 mg IV Q12HR [facility] Last Admin: 08/14/20 08:43 Dose: 40 mg Documented by: Sodium Chloride (Saline Flush) 2.5 ml FLUSH ASDIRECTED PRN PRN Reason: Keep Vein Open Sucralfate (Carafate) 1 gm PO QIDACANDBED [facility] Last Admin: 08/14/20 07:02 Dose: 1 gm Documented by: Discontinued Medications Diatrizoate Meglum/Diatrizoate Sod (Gastrografin 37%) 15 ml PO ONETIME STA Stop: 08/12/20 06:44 Last Admin: 08/12/20 06:47 Dose: 15 ml Documented by: Lactated Ringer's (Ringers, Lactated) 1,000 mls @ 999 mls/hr IV ASDIRECTED [facility] Last Admin: 08/12/20 03:19 Dose: 999 mls/hr Documented by: Magnesium Sulfate (Magnesium Sulfate In Water Premix) 2 gm in 50 mls @ 50 mls/hr IV ONETIME ONE Stop: 08/13/20 10:00 Last Admin: 08/13/20 09:36 Dose: 50 mls/hr Documented by: Iopamidol (Isovue Multipack-370 (76%)) 100 ml IVPUSH ONETIME STA Stop: 08/12/20 06:35 Last Admin: 08/12/20 06:35 Dose: 100 ml Documented by: Morphine Sulfate (Morphine) 4 mg IM ONETIME ONE Stop: 08/12/20 03:08 Last Admin: 08/12/20 03:27 Dose: Not Given Documented by: Morphine Sulfate (Morphine) 4 mg IVPUSH ONETIME ONE Stop: 08/12/20 03:24 Last Admin: 08/12/20 03:20 Dose: 4 mg Documented by: Morphine Sulfate (Morphine) 4 mg IVPUSH ONETIME ONE Stop: 08/12/20 07:09 Last Admin: 08/12/20 07:21 Dose: 4 mg Documented by: Morphine Sulfate (Morphine) 4 mg IVPUSH ONETIME ONE Stop: 08/12/20 08:45 Last Admin: 08/12/20 09:15 Dose: 4 mg Documented by: Ondansetron HCl (Zofran) 4 mg IVPUSH ONETIME ONE Stop: 08/12/20 03:08 Last Admin: 08/12/20 03:18 Dose: 4 mg Documented by: Ondansetron HCl (Zofran) 4 mg IVPUSH ONETIME ONE Stop: 08/12/20 07:09 Last Admin: 08/12/20 07:22 Dose: 4 mg Documented by: Ondansetron HCl (Zofran) 4 mg IVPUSH ONETIME ONE Stop: 08/12/20 08:45 Last Admin: 08/12/20 09:15 Dose: 4 mg Documented by: Ondansetron HCl (Zofran) 4 mg IVPUSH ONETIME ONE Stop: 08/14/20 08:25 Last Admin: 08/14/20 09:21 Dose: 4 mg Documented by: Pantoprazole Sodium (Protonix) 40 mg PO DAILY [facility] Last Admin: 08/12/20 09:15 Dose: 40 mg Documented by: Sodium Chloride (Saline Flush) 10 ml FLUSH ASDIRECTED PRN PRN Reason: Keep Vein Open Last Admin: 08/12/20 07:22 Dose: 10 ml Documented by: Sodium Chloride (Saline Flush) 2.5 ml FLUSH ASDIRECTED PRN PRN Reason: Keep Vein Open Last Admin: 08/12/20 07:22 Dose: 2.5 ml Documented by: Sucralfate (Carafate) 1 gm PO ONETIME ONE Stop: 08/12/20 08:42 Last Admin: 08/12/20 09:28 Dose: 1 gm Documented by: - Exam Quality Assessment: DVT Prophylaxis General: Alert, Oriented, Cooperative Lungs: Clear to Auscultation, Normal Respiratory Effort Cardiovascular: Regular Rate, Regular Rhythm GI/Abdominal Exam: Normal Bowel Sounds, Soft, Tender (Continues to have significant tenderness and Noble's sign to right upper quadrant) Extremities: Normal Inspection, Normal Range of Motion, Non-Tender, No Pedal Edema Neurological: No New Focal Deficit Psy/Mental Status: Alert, Normal Affect, Normal Mood Sepsis Event Note - Evaluation Sepsis Screening Result: No Definite Risk - Focused Exam Vital Signs: Vital Signs Temp Pulse Resp BP Pulse Ox 08/14/20 07:30 96.8 F L 73 16 148/85 H 98 08/14/20 04:25 96.9 F 73 17 105/64 97 08/14/20 00:00 97.5 F 76 18 130/69 97 - Problem List & Annotations (1) Right upper quadrant abdominal pain SNOMED Code(s): 449236311 Code(s): R10.11 - RIGHT UPPER QUADRANT PAIN Status: Acute Current Visit: Yes (2) Nausea and vomiting SNOMED Code(s): 78660361 Code(s): R11.2 - NAUSEA WITH VOMITING, UNSPECIFIED Status: Acute Current Visit: Yes Qualifiers: Vomiting Intractability: intractable (3) History of nephrolithiasis SNOMED Code(s): 089291123 Code(s): Z87.442 - PERSONAL HISTORY OF URINARY CALCULI Status: Acute Current Visit: No (4) Depression SNOMED Code(s): 06899222 Code(s): F32.9 - MAJOR DEPRESSIVE DISORDER, SINGLE EPISODE, UNSPECIFIED [place]: Acute Current Visit: Yes (5) History of Yoko-en-Y gastric bypass SNOMED Code(s): 216489962 Code(s): Z98.84 - BARIATRIC SURGERY STATUS Status: Chronic Current Visit: Yes - Problem List Review Problem List Initiated/Reviewed/Updated: Yes - My Orders Last 24 Hours: My Active Orders 08/13/20 09:00 FLUoxetine [PROzac] 20 mg PO DAILY 08/13/20 18:03 diazePAM [Valium] 2 mg PO TID PRN 08/14/20 09:41 Notify Provider Consults [RC] ASDIRECTED Consult to Physician [CONS] Routine 08/15/20 05:11 CBC WITH AUTO DIFF [HEME] AM COMPREHENSIVE METABOLIC PN,CMP [CHEM] AM MG [MAGNESIUM] [CHEM] AM 08/16/20 05:11 CBC WITH AUTO DIFF [HEME] AM COMPREHENSIVE METABOLIC PN,CMP [CHEM] AM MG [MAGNESIUM] [CHEM] AM - Plan Plan:: This 29-year-old female was admitted with right upper quadrant and epigastric pain along with nausea and vomiting 1. RUQ pain/nausea vomiting -Consider postoperative pain but CT is negative will monitor closely. -Possibly consider biliary dyskinesia has family history of significant gallbladder disease including cholelithiasis. She denies any history of biliary concerns. -Slight bump in ALT this morning. Lactic acid normal -Has attempted to try some clear liquids but pain worsens. -Protonix as well as Carafate -Dilaudid 1 mg every 3 hours as needed pain -Zofran as needed nausea -Spoke with Dr. Larry last evening. She reviewed images feels there is no significant issues and it appears normal. She recommended potentially having one of our surgeons evaluate her here. As [facility] [facility] has no bed availability at all. She also recommended Valium for some nausea. She would be okay with this in the short-term for her to be tolerable delicate to follow-up on 08/18. -Right upper quadrant ultrasound ultrasound reveals mildly enlarged liver 21 cm with hepatic steatosis. Small amount of gallbladder sludge mild nonspecific prominence of the common bile duct no other signs of acute cholecystitis. -Spoke with Dr. Yang, general surgery. He will come evaluate patient this afternoon. I appreciate his assistance. VTE prophylaxis: SCDs CODE STATUS: full code Dispo 1 to 2 days pending improvement will make inpatient today as she likely will need greater than 2 midnight stay.
[2020-08-14] MEDS: Diazepam 2 MG Tab PO PRN ×2 (10:16→23:51)
--- NOTE | 2020-08-14 14:15 | PCM.CONS ---
H&P History of Present Illness - General Date of Service: 08/14/20 Admit Problem/Dx: Admission Diagnosis/Problem Admission Diagnosis/Problem Epigastric abdominal pain of unknown etiology RUQ pain post gastric bypass with Yoko-en-Y gastrojejunostomy on 07/27/20. Source of Information: Patient History Limitations: Reports: No Limitations - History of Present Illness Initial Comments - Free Text/Narative: Patient is a 29-year-old female, who underwent a Yoko-en-Y gastric bypass on July 27. She was doing well until this past Monday. She was allowed to liberalize her diet a little bit. When she ate lunch, she felt well but a few hours later, started having more and more abdominal pain. This did awaken her at night, and she ultimately sought medical evaluation. She denies any fever or chills. No significant nausea or vomiting. She is afraid to eat and complains of right upper quadrant pain. Symptom Onset Date: 08/11/20 Location: Reports: Abdomen Quality: Reports: Pressure, Stabbing Severity: Moderate Improves with: Reports: Rest Worsens with: Reports: Eating, Movement Context: Reports: Sick Contact Associated Symptoms: Reports: Loss of Appetite, Nausea/Vomiting. Denies: Fever/Chills, Shortness of Breath, Syncope Epigastric Pain Score (Numeric/FACES): 4 - Related Data Allergies/Adverse Reactions: Allergies Allergy/AdvReac Type Severity Reaction Status Date / Time adhesive Allergy Hives Verified 08/12/20 11:19 hydrocodone [From Vicodin] Allergy Irritabilit Verified 08/12/20 11:19 y latex Allergy Hives Verified 08/12/20 11:19 metoclopramide [From Reglan] Allergy Irritabilit Verified 08/12/20 11:19 y promethazine [From Phenergan] Allergy Irritabilit Verified 08/12/20 11:19 y sumatriptan [From Imitrex] Allergy Irritabilit Verified 08/12/20 11:19 y Home Medications: Home Meds Cyclobenzaprine [Flexeril] 10 mg PO TID PRN 08/12/20 [History] FLUoxetine [PROzac] 20 mg PO DAILY 08/12/20 [History] Multivit-Min/Iron/Folic Acid/K [Bariatric Mv-Iron 45 mg Cap] 1 tab PO DAILY 08/12/20 [History] Omeprazole 20 mg PO DAILY 08/12/20 [History] Ondansetron [Zofran] 4 mg PO Q6HR PRN 08/12/20 [History] oxyCODONE HCl/Acetaminophen [Oxycodone-Acetaminophen 5-325] 1 tab PO TID PRN 08/12/20 [History] Montelukast [Singulair] 10 mg PO BEDTIME 08/13/20 [History] Past Medical History HEENT History: Reports: Impaired Vision Other HEENT History: wears glasses Cardiovascular History: Reports: None Respiratory History: Reports: Asthma, Sleep Apnea Gastrointestinal History: Reports: GERD, Irritable Bowel Syndrome Genitourinary History: Reports: Renal Calculus D[employer]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: Polycystic Ovaries Musculoskeletal History: Reports: None Neurological History: Reports: Migraines Psychiatric History: Reports: Anxiety, Bipolar, Depression Endocrine/Metabolic History: Reports: Obesity/BMI 30+ Hematologic History: Reports: None Immunologic History: Reports: None Oncologic (Cancer) History: Reports: None Dermatologic History: Reports: None - Infectious Disease History Infectious Disease History: Reports: Chicken Pox - Past Surgical History Head Surgeries/Procedures: Reports: None HEENT Surgical History: Reports: None Respiratory Surgical History: Reports: None GI Surgical History: Reports: Bariatric Procedure Female Surgical History: Reports: Lithotripsy/ESWL, Other (See Below) Other Female Surgeries/Procedures: Nephrostomy of scar tissue, ureterscopy Neurological Surgical History: Reports: None Social & Family History - Family History Family Medical History: No Pertinent Family History - Tobacco Use Tobacco Use Status *Q: Former Tobacco User Years of Tobacco use: 11 Packs/Tins Daily: 1 Used Tobacco, but Quit: Yes Month/Year Tobacco Last Used: 5 months ago Second Hand Smoke Exposure: No - Caffeine Use Caffeine Use: Reports: None - Recreational Drug Use Recreational Drug Use: Yes Recreational Drug Type: Reports: Other (see below) Other Recreational Drug Type: THC edibles Recreational Drug Use Frequency: Weekly H&P Review of Systems - Review of Systems: Review Of Systems: See Below General: Reports: Decreased Appetite. Denies: Fever, Chills, Malaise, Weakness, Fatigue HEENT: Reports: No Symptoms Pulmonary: Denies: Shortness of Breath, Wheezing, Pleuritic Chest Pain Cardiovascular: Denies: Chest Pain, Palpitations, Lightheadedness, Syncope Gastrointestinal: Reports: Abdominal Pain (Right upper quadrant), Decreased Appetite, Flatus, Nausea, Vomiting. Denies: Black Stool, Bloody Stool, Constipation, Diarrhea, Difficulty Swallowing, Distension, Hematemesis, Hematochezia, Melena Genitourinary: Denies: Dysuria, Frequency, Burning, Pain, Urgency Musculoskeletal: Reports: No Symptoms Skin: Denies: Cyanosis, Jaundice Psychiatric: Denies: Confusion, Depression, Mood Lability, Anxiety Exam - Exam Exam: See Below - Vital Signs Vital Signs: Last Vital Signs Temp 96.9 F 08/14/20 11:35 Pulse 77 08/14/20 11:35 Resp 18 08/14/20 11:35 BP 141/95 H 08/14/20 11:35 Pulse Ox 96 08/14/20 11:35 Weight: 290 lb 15.986 oz - Exam Quality Assessment: DVT Prophylaxis. No: Supplemental Oxygen General: Alert, Oriented, Cooperative, Mild Distress HEENT: Conjunctiva Clear, Nares Patent, Pupils Equal, Pupils Reactive. No: Scleral Icterus Neck: Supple, Trachea Midline Lungs: Clear to Auscultation, Normal Respiratory Effort. No: Decreased Breath Sounds, Wheezing Cardiovascular: Regular Rate, Regular Rhythm. No: Tachycardia GI/Abdominal Exam: Soft, No Distention, No Mass, Pelvis Stable, Rigid, Tender (Right upper quadrant to light palpation), Other (All of the laparoscopic incisions are healing well.). No: Guarding, Rebound, Hernia, Mass (Female) Exam: Deferred Rectal (Female) Exam: Deferred Back Exam: Normal Inspection Extremities: Normal Inspection, Normal Range of Motion, Non-Tender, No Pedal Edema, Normal Capillary Refill. No: Rosemary's Sign Peripheral Pulses: 4+: Posterior Tibial (L), Posterior Tibial (R), Dorsalis Pedis (L), Dorsalis Pedis (R) Skin: Warm, Dry, Intact Psychiatric: Alert, Anxious - Patient Data Lab Results Last 24 hrs: Laboratory Results - last 24 hr 08/14/20 08/14/20 08/14/20 Range/Units 05:18 05:18 05:18 WBC 6.50 (4.0-11.0) K/uL RBC 4.61 (4.30-5.90) M/uL Hgb 12.2 (12.0-16.0) g/dL Hct 39.7 (36.0-46.0) % MCV 86.1 (80.0-98.0) fL MCH 26.5 L (27.0-32.0) pg MCHC 30.7 L (31.0-37.0) g/dL RDW Std Deviation 43.2 (28.0-62.0) fl RDW Coeff of Bandar 14 (11.0-15.0) % Plt Count 227 (150-400) K/uL MPV 10.60 (7.40-12.00) fL Neut % (Auto) 46.8 L (48.0-80.0) % Lymph % (Auto) 41.5 H (16.0-40.0) % [place] % (Auto) 8.6 (0.0-15.0) % Eos % (Auto) 2.8 (0.0-7.0) % Baso % (Auto) 0.3 (0.0-1.5) % Neut # (Auto) 3.0 (1.4-5.7) K/uL Lymph # (Auto) 2.7 H (0.6-2.4) K/uL [place] # (Auto) 0.6 (0.0-0.8) K/uL Eos # (Auto) 0.2 (0.0-0.7) K/uL Baso # (Auto) 0.0 (0.0-0.1) K/uL Nucleated RBC % 0.0 /100WBC Nucleated RBCs # 0 K/uL Lactate 0.7 (0.20-2.00) mmol/L Sodium 140 (136-145) mmol/L Potassium 3.6 (3.5-5.1) mmol/L Chloride 105 (98-107) mmol/L Carbon Dioxide 26.8 (21.0-32.0) mmol/L BUN 4 L (7.0-18.0) mg/dL Creatinine 0.8 (0.6-1.0) mg/dL Est Cr Clr Drug Dosing 93.37 mL/min Estimated GFR (MDRD) > 60.0 ml/min Glucose 79 (74-106) mg/dL Calcium 8.3 L (8.5-10.1) mg/dL Magnesium 1.8 (1.8-2.4) mg/dL Total Bilirubin 0.5 (0.2-1.0) mg/dL AST 36 (15-37) IU/L ALT 72 H (14-63) IU/L Alkaline Phosphatase 66 (46-116) U/L Total Protein 6.5 (6.4-8.2) g/dL Albumin 2.9 L (3.4-5.0) g/dL Globulin 3.6 (2.6-4.0) g/dL Albumin/Globulin Ratio 0.8 L (0.9-1.6) Result Diagrams: 08/14/20 05:18 08/14/20 05:18 Sepsis Event Note - Evaluation Sepsis Screening Result: No Definite Risk - Focused Exam Vital Signs: Vital Signs Temp Pulse Resp BP Pulse Ox 08/14/20 11:35 96.9 F 77 18 141/95 H 96 08/14/20 07:30 96.8 F L 73 16 148/85 H 98 08/14/20 04:25 96.9 F 73 17 105/64 97 Consult PN Assessment/Plan Procedures: Procedures AIRWAY INHALATION TREATMENT (12/27/18) ALLG SPEC IGE CRUDE XTRC EA (06/26/20) ASSAY OF LACTIC ACID (03/15/20) ASSAY OF LIPASE (03/15/20) ASSAY OF PARATHORMONE (01/07/19) ASSAY OF TROPONIN QUANT (12/27/18) ASSAY THYROID STIM HORMONE (06/26/20) C-REACTIVE PROTEIN (03/07/19) CHORIONIC GONADOTROPIN ASSAY (03/15/20) COMPLETE CBC W/AUTO DIFF WBC (06/26/20) COMPREHEN METABOLIC PANEL (06/26/20) CT ABD & PELV 1/> REGNS (09/02/19) CT ABD & PELV W/CONTRAST (03/15/20) CT ABD & PELVIS W/O CONTRAST (05/12/19) CT MAXILLOFACIAL W/DYE (03/03/19) CT SOFT TISSUE NECK W/DYE (03/07/19) CULTURE SCREEN ONLY (03/03/19) DRUG TEST PRSMV DIR OPT OBS (05/12/19) ELECTROCARDIOGRAM TRACING (12/27/18) EMERGENCY DEPT VISIT (03/15/20) EMERGENCY DEPT VISIT (03/05/19) EMERGENCY DEPT VISIT (03/03/19) EMERGENCY DEPT VISIT (12/27/18) GLYCOSYLATED HEMOGLOBIN TEST (01/07/19) HETEROPHILE ANTIBODY SCREEN (03/03/19) HYDRATE IV INFUSION ADD-ON (03/15/20) HYDRATION IV INFUSION INIT (10/09/19) IMMUNOASSAY NONANTIBODY (06/26/20) LIPID PANEL (10/09/19) RBC SED RATE AUTOMATED (06/26/20) ROUTINE VENIPUNCTURE (03/15/20) STREP A ASSAY W/OPTIC (03/03/19) THER/PROPH/DIAG INJ IV PUSH (03/15/20) THER/PROPH/DIAG INJ SC/IM (02/07/19) TX/PRO/DX INJ NEW DRUG ADDON (03/15/20) TX/PRO/DX INJ SAME DRUG IDENTITY ACCESS MANAGEMENT ARCHITECT (03/15/20) URINALYSIS AUTO W/O SCOPE (02/06/20) URINALYSIS AUTO W/SCOPE (03/15/20) URINE CULTURE/COLONY COUNT (03/15/20) URINE TEST (02/06/20) VITAMIN D 25 HYDROXY (01/07/19) X-RAY EXAM ABDOMEN 1 VIEW (12/10/19) X-RAY EXAM CHEST 2 VIEWS (12/27/18) (1) Epigastric abdominal pain SNOMED Code(s): 32066154 Code(s): R10.13 - EPIGASTRIC PAIN Priority: Medium Current Visit: Yes (2) Nausea and vomiting SNOMED Code(s): 13784205 Code(s): R11.2 - NAUSEA WITH VOMITING, UNSPECIFIED Priority: Medium Current Visit: Yes Qualifiers: Vomiting Intractability: intractable (3) Right upper quadrant abdominal pain SNOMED Code(s): 390351294 Code(s): R10.11 - RIGHT UPPER QUADRANT PAIN Priority: High Current Visit: Yes (4) History of Yoko-en-Y gastric bypass SNOMED Code(s): 875319735 Code(s): Z98.84 - BARIATRIC SURGERY STATUS Priority: Low Current Visit: Yes (5) Abdominal pain SNOMED Code(s): 39920437 Code(s): R10.9 - UNSPECIFIED ABDOMINAL PAIN Priority: Low Current Visit: No Qualifiers: Abdominal location: epigastric Qualified Code(s): R10.13 - Epigastric pain Problem List Initiated/Reviewed/Updated: Yes Plan: Radiologic studies show only sludge in the gallbladder with not pericholecystic fluid or gallbladder wall thickening. Recommend clear-full liquid diet but low-fat. Consider CCK-HIDA when she has been off narcotics for at least 2 days. She is scheduled to see Dr. Larry on 08/18. She should keep that appointment.
[2020-08-15] MEDS: Ondansetron 4 MG/2 ML SDV IVPUSH PRN ×5 (01:35→21:55)
[2020-08-15] MEDS: HYDROmorphone 1 MG/ML Syringe IVPUSH PRN ×5 (01:36→21:55)
[2020-08-15] MEDS: Lactated Ringers 1,000 ML IV SCH ×4 (02:11→22:44)
[2020-08-15 06:39] LABS: BLOOD UREA NITROGEN,BUN 4 mg/dL (7.0-18.0); CARBON DIOXIDE,CO2 27.8 mmol/L (21.0-32.0); CHLORIDE,CL 104 mmol/L (98-107); GLUCOSE RANDOM 74 mg/dL (74-106); POTASSIUM,K 4.1 mmol/L (3.5-5.1); SODIUM,NA 142 mmol/L (136-145)
[2020-08-15] MEDS: FLUoxetine 20 MG Cap PO SCH (09:42)
[2020-08-15] MEDS: Pantoprazole 40 MG in Sodium Chloride 0.9% 10 ML IV SCH ×2 (09:42→21:57)
[2020-08-15] MEDS: Sucralfate Suspension 1 GM/10 ML Cup PO SCH ×4 (09:55→21:58)
[2020-08-15] MEDS: Diazepam 2 MG Tab PO PRN ×2 (13:09→23:35)
--- NOTE | 2020-08-15 13:43 | PCM.PN ---
- General Info Date of Service: 08/15/20 Admission Dx/Problem (Free Text): Admission Diagnosis/Problem Admission Diagnosis/Problem Epigastric abdominal pain of unknown etiology RUQ pain post gastric bypass with Yoko-en-Y gastrojejunostomy on 07/27/20. Subjective Update: Continues to have right upper quadrant pain that is gnawing and constant worsened by any intake of fluids. She denies any chest pain or shortness of breath. No bowel movement, has been drinking lemonade. no fever , no chills - Review of Systems General: Denies: Fever, Weakness, Fatigue, Malaise Cardiovascular: Denies: Chest Pain, Palpitations Gastrointestinal: Reports: Abdominal Pain, Constipation, Decreased Appetite, Nausea. Denies: Diarrhea, Difficulty Swallowing, Vomiting Genitourinary: Denies: Frequency, Burning, Pain Musculoskeletal: Denies: Shoulder Pain, Arm Pain, Hand Pain Skin: Denies: Jaundice, Mottled, Pallor Neurological: Denies: Dizziness, Headache, Numbness - Patient Data Vitals - Most Recent: Last Vital Signs Temp 36.8 C 08/15/20 12:53 Pulse 68 08/15/20 12:53 Resp 16 08/15/20 12:53 BP 126/70 08/15/20 12:53 Pulse Ox 98 08/15/20 12:53 Weight - Most Recent: 131.995 kg I&O - Last 24 Hours: Intake & Output 08/14/20 08/15/20 08/15/20 22:59 06:59 14:59 Intake Total 200 250 Output Total 1075 1175 Balance -875 -925 Lab Results Last 24 Hours: Laboratory Results - last 24 hr 08/15/20 08/15/20 Range/Units 05:15 05:15 WBC 6.43 (4.0-11.0) K/uL RBC 4.90 (4.30-5.90) M/uL Hgb 12.9 (12.0-16.0) g/dL Hct 42.2 (36.0-46.0) % MCV 86.1 (80.0-98.0) fL MCH 26.3 L (27.0-32.0) pg MCHC 30.6 L (31.0-37.0) g/dL RDW Std Deviation 43.6 (28.0-62.0) fl RDW Coeff of Bandar 14 (11.0-15.0) % Plt Count 235 (150-400) K/uL MPV 11.00 (7.40-12.00) fL Neut % (Auto) 48.0 (48.0-80.0) % Lymph % (Auto) 40.9 H (16.0-40.0) % [place] % (Auto) 7.5 (0.0-15.0) % Eos % (Auto) 3.1 (0.0-7.0) % Baso % (Auto) 0.5 (0.0-1.5) % Neut # (Auto) 3.1 (1.4-5.7) K/uL Lymph # (Auto) 2.6 H (0.6-2.4) K/uL [place] # (Auto) 0.5 (0.0-0.8) K/uL Eos # (Auto) 0.2 (0.0-0.7) K/uL Baso # (Auto) 0.0 (0.0-0.1) K/uL Nucleated RBC % 0.0 /100WBC Nucleated RBCs # 0 K/uL Sodium 142 (136-145) mmol/L Potassium 4.1 (3.5-5.1) mmol/L Chloride 104 (98-107) mmol/L Carbon Dioxide 27.8 (21.0-32.0) mmol/L BUN 4 L (7.0-18.0) mg/dL Creatinine 0.9 (0.6-1.0) mg/dL Est Cr Clr Drug Dosing 82.86 mL/min Estimated GFR (MDRD) > 60.0 ml/min Glucose 74 (74-106) mg/dL Calcium 9.1 (8.5-10.1) mg/dL Magnesium 1.8 (1.8-2.4) mg/dL Total Bilirubin 0.7 (0.2-1.0) mg/dL AST 40 H (15-37) IU/L ALT 87 H (14-63) IU/L Alkaline Phosphatase 75 (46-116) U/L Total Protein 7.1 (6.4-8.2) g/dL Albumin 3.3 L (3.4-5.0) g/dL Globulin 3.8 (2.6-4.0) g/dL Albumin/Globulin Ratio 0.9 (0.9-1.6) Med Orders - Current: Current Medications Cyclobenzaprine HCl (Flexeril) 10 mg PO TID PRN PRN Reason: Muscle Spasm Last Admin: 08/12/20 14:56 Dose: 10 mg Documented by: Diazepam (Valium) 2 mg PO TID PRN PRN Reason: Pain Last Admin: 08/15/20 13:09 Dose: 2 mg Documented by: Fluoxetine HCl (Prozac) 20 mg PO DAILY [facility] Last Admin: 08/15/20 09:42 Dose: 20 mg Documented by: Hydromorphone HCl (Dilaudid) 1 mg IVPUSH Q3H PRN PRN Reason: Pain Last Admin: 08/15/20 13:04 Dose: 1 mg Documented by: Lactated Ringer's (Ringers, Lactated) 1,000 mls @ 125 mls/hr IV Q8H [facility] Last Admin: 08/15/20 13:08 Dose: 125 mls/hr Documented by: Pantoprazole Sodium 40 mg/ (Sodium Chloride) 10 mls @ 200 mls/hr IV Q12H [facility] Last Admin: 08/15/20 09:42 Dose: 200 mls/hr Documented by: Ondansetron HCl (Zofran) 4 mg IVPUSH Q4H PRN PRN Reason: Nausea Last Admin: 08/15/20 09:42 Dose: 4 mg Documented by: Sodium Chloride (Saline Flush) 2.5 ml FLUSH ASDIRECTED PRN PRN Reason: Keep Vein Open Sucralfate (Carafate) 1 gm PO QIDACANDBED [facility] Last Admin: 08/15/20 13:25 Dose: Not Given Documented by: Discontinued Medications Diatrizoate Meglum/Diatrizoate Sod (Gastrografin 37%) 15 ml PO ONETIME STA Stop: 08/12/20 06:44 Last Admin: 08/12/20 06:47 Dose: 15 ml Documented by: Lactated Ringer's (Ringers, Lactated) 1,000 mls @ 999 mls/hr IV ASDIRECTED [facility] Last Admin: 08/12/20 03:19 Dose: 999 mls/hr Documented by: Magnesium Sulfate (Magnesium Sulfate In Water Premix) 2 gm in 50 mls @ 50 mls/hr IV ONETIME ONE Stop: 08/13/20 10:00 Last Admin: 08/13/20 09:36 Dose: 50 mls/hr Documented by: Iopamidol (Isovue Multipack-370 (76%)) 100 ml IVPUSH ONETIME STA Stop: 08/12/20 06:35 Last Admin: 08/12/20 06:35 Dose: 100 ml Documented by: Morphine Sulfate (Morphine) 4 mg IM ONETIME ONE Stop: 08/12/20 03:08 Last Admin: 08/12/20 03:27 Dose: Not Given Documented by: Morphine Sulfate (Morphine) 4 mg IVPUSH ONETIME ONE Stop: 08/12/20 03:24 Last Admin: 08/12/20 03:20 Dose: 4 mg Documented by: Morphine Sulfate (Morphine) 4 mg IVPUSH ONETIME ONE Stop: 08/12/20 07:09 Last Admin: 08/12/20 07:21 Dose: 4 mg Documented by: Morphine Sulfate (Morphine) 4 mg IVPUSH ONETIME ONE Stop: 08/12/20 08:45 Last Admin: 08/12/20 09:15 Dose: 4 mg Documented by: Ondansetron HCl (Zofran) 4 mg IVPUSH ONETIME ONE Stop: 08/12/20 03:08 Last Admin: 08/12/20 03:18 Dose: 4 mg Documented by: Ondansetron HCl (Zofran) 4 mg IVPUSH ONETIME ONE Stop: 08/12/20 07:09 Last Admin: 08/12/20 07:22 Dose: 4 mg Documented by: Ondansetron HCl (Zofran) 4 mg IVPUSH ONETIME ONE Stop: 08/12/20 08:45 Last Admin: 08/12/20 09:15 Dose: 4 mg Documented by: Ondansetron HCl (Zofran) 4 mg IVPUSH ONETIME ONE Stop: 08/14/20 08:25 Last Admin: 08/14/20 09:21 Dose: 4 mg Documented by: Pantoprazole Sodium (Protonix) 40 mg PO DAILY [facility] Last Admin: 08/12/20 09:15 Dose: 40 mg Documented by: Pantoprazole Sodium (Protonix Iv) 40 mg IV Q12HR [facility] Last Admin: 12/04/20 21:01 Dose: 40 mg Documented by: Sodium Chloride (Saline Flush) 10 ml FLUSH ASDIRECTED PRN PRN Reason: Keep Vein Open Last Admin: 08/12/20 07:22 Dose: 10 ml Documented by: Sodium Chloride (Saline Flush) 2.5 ml FLUSH ASDIRECTED PRN PRN Reason: Keep Vein Open Last Admin: 08/12/20 07:22 Dose: 2.5 ml Documented by: Sucralfate (Carafate) 1 gm PO ONETIME ONE Stop: 08/12/20 08:42 Last Admin: 08/12/20 09:28 Dose: 1 gm Documented by: - Exam Quality Assessment: No: Supplemental Oxygen General: Alert, Oriented Lungs: Clear to Auscultation, Normal Respiratory Effort Cardiovascular: Regular Rate, Regular Rhythm GI/Abdominal Exam: Soft, Tender. No: Non-Tender, No Organomegaly Sepsis Event Note - Evaluation Sepsis Screening Result: No Definite Risk - Focused Exam Vital Signs: Vital Signs Temp Pulse Resp BP Pulse Ox 08/15/20 12:53 36.8 C 68 16 126/70 98 08/15/20 08:00 36.4 C 76 16 141/85 H 98 08/15/20 03:00 35.8 C L 64 16 120/65 95 - Problem List & Annotations (1) Depression SNOMED Code(s): 99917049 Code(s): F32.9 - MAJOR DEPRESSIVE DISORDER, SINGLE EPISODE, UNSPECIFIED Status: Acute Current Visit: Yes (2) Epigastric abdominal pain SNOMED Code(s): 37425361 Code(s): R10.13 - EPIGASTRIC PAIN Status: Acute Priority: Medium Current Visit: Yes (3) Nausea and vomiting SNOMED Code(s): 23734335 Code(s): R11.2 - NAUSEA WITH VOMITING, UNSPECIFIED Status: Acute Priority: Medium Current Visit: Yes Qualifiers: Vomiting Intractability: intractable (4) Right upper quadrant abdominal pain SNOMED Code(s): 832237781 Code(s): R10.11 - RIGHT UPPER QUADRANT PAIN Status: Acute Priority: High Current Visit: Yes (5) History of Yoko-en-Y gastric bypass SNOMED Code(s): 159012899 Code(s): Z98.84 - BARIATRIC SURGERY STATUS Status: Chronic Priority: Low Current Visit: Yes - Problem List Review Problem List Initiated/Reviewed/Updated: Yes - Plan Plan:: This 29-year-old female was admitted with right upper quadrant and epigastric pain along with nausea and vomiting 1. RUQ pain/nausea vomiting -Consider postoperative pain vs Possibly consider biliary dyskinesia has family history of significant gallbladder disease including cholelithiasis. She denies any history of biliary concerns. but CT is negative will monitor closely. -Slight bump in ALT this morning. Lactic acid normal -States she get nauseous when she tried jello -Protonix as well as Carafate -Dilaudid 1 mg every 3 hours as needed pain hasnt been working, will switch to morphine -Zofran as needed nausea -Right upper quadrant ultrasound ultrasound reveals mildly enlarged liver 21 cm with hepatic steatosis. Small amount of gallbladder sludge mild nonspecific prominence of the common bile duct no other signs of acute cholecystitis. -Dr. Yang, general surgery recs noted VTE prophylaxis: SCDs CODE STATUS: full code Dispo 1 to 2 days pending improvement will make inpatient today as she likely will need greater than 2 midnight stay.
[2020-08-15] MEDS ORDERED: Polyethylene Glycol 3350 Powder 17 GM Packet PO PRN (13:45)
[2020-08-15] MEDS ORDERED: Docusate Sodium 100 MG Cap PO PRN (13:46)
[2020-08-15] MEDS ORDERED: Morphine 4 MG/ML Syringe IVPUSH PRN (13:47)
[2020-08-15] MEDS: oxyCODONE 5 MG Tab PO SCH ×2 (15:57→23:00)
[2020-08-15] MEDS: Cyclobenzaprine 10 MG Tab PO PRN (16:52)
[2020-08-16] MEDS: HYDROmorphone 1 MG/ML Syringe IVPUSH PRN ×6 (02:47→23:29)
[2020-08-16] MEDS: Ondansetron 4 MG/2 ML SDV IVPUSH PRN ×6 (02:47→23:28)
[2020-08-16] MEDS: oxyCODONE 5 MG Tab PO SCH ×3 (05:45→19:24)
[2020-08-16] MEDS: Lactated Ringers 1,000 ML IV SCH ×2 (06:44→14:31)
[2020-08-16 06:45] LABS: BLOOD UREA NITROGEN,BUN 4 mg/dL (7.0-18.0); CARBON DIOXIDE,CO2 26.1 mmol/L (21.0-32.0); CHLORIDE,CL 104 mmol/L (98-107); GLUCOSE RANDOM 76 mg/dL (74-106); POTASSIUM,K 3.6 mmol/L (3.5-5.1); SODIUM,NA 141 mmol/L (136-145)
[2020-08-16] MEDS: Sucralfate Suspension 1 GM/10 ML Cup PO SCH ×4 (06:45→20:18)
[2020-08-16] MEDS: Pantoprazole 40 MG in Sodium Chloride 0.9% 10 ML IV SCH ×2 (08:20→20:18)
[2020-08-16] MEDS: FLUoxetine 20 MG Cap PO SCH (08:20)
[2020-08-16] MEDS: Diazepam 2 MG Tab PO PRN ×2 (08:20→22:00)
[2020-08-16] MEDS: Docusate Sodium 100 MG Cap PO SCH ×3 (09:52→20:20)
--- NOTE | 2020-08-16 12:32 | PCM.PN ---
- General Info Date of Service: 08/16/20 Admission Dx/Problem (Free Text): Admission Diagnosis/Problem Admission Diagnosis/Problem Epigastric abdominal pain of unknown etiology RUQ pain post gastric bypass with Yoko-en-Y gastrojejunostomy on 07/27/20. Subjective Update: pain slightly better today, has improved appetite, but has spastic pain every few hours in his RUQ, no N/V,fever, some loose stools today Functional Status: Reports: Tolerating Diet - Review of Systems General: Denies: Fever, Weakness, Fatigue Pulmonary: Denies: Shortness of Breath, Pleuritic Chest Pain Cardiovascular: Denies: Chest Pain, Palpitations, Dyspnea on Exertion Gastrointestinal: Reports: Abdominal Pain, Decreased Appetite. Denies: Constipation, Diarrhea, Difficulty Swallowing, Nausea, Vomiting Genitourinary: Denies: Dysuria, Frequency, Burning, Pain Musculoskeletal: Denies: Neck Pain, Shoulder Pain, Arm Pain Skin: Denies: Cyanosis, Jaundice, Mottled - Patient Data Vitals - Most Recent: Last Vital Signs Temp 36.3 C 08/16/20 11:26 Pulse 76 08/16/20 11:26 Resp 16 08/16/20 11:26 BP 131/69 08/16/20 11:26 Pulse Ox 98 08/16/20 11:26 Weight - Most Recent: 131.995 kg I&O - Last 24 Hours: Intake & Output 08/15/20 08/16/20 08/16/20 22:59 06:59 14:59 Intake Total 1433 1670 Output Total 900 0 Balance 533 1670 Lab Results Last 24 Hours: Laboratory Results - last 24 hr 08/16/20 08/16/20 Range/Units 05:15 05:15 WBC 5.80 (4.0-11.0) K/uL RBC 4.82 (4.30-5.90) M/uL Hgb 12.8 (12.0-16.0) g/dL Hct 41.0 (36.0-46.0) % MCV 85.1 (80.0-98.0) fL MCH 26.6 L (27.0-32.0) pg MCHC 31.2 (31.0-37.0) g/dL RDW Std Deviation 43.1 (28.0-62.0) fl RDW Coeff of Bandar 14 (11.0-15.0) % Plt Count 238 (150-400) K/uL MPV 11.60 (7.40-12.00) fL Neut % (Auto) 46.7 L (48.0-80.0) % Lymph % (Auto) 41.7 H (16.0-40.0) % [place] % (Auto) 7.8 (0.0-15.0) % Eos % (Auto) 3.3 (0.0-7.0) % Baso % (Auto) 0.5 (0.0-1.5) % Neut # (Auto) 2.7 (1.4-5.7) K/uL Lymph # (Auto) 2.4 (0.6-2.4) K/uL [place] # (Auto) 0.5 (0.0-0.8) K/uL Eos # (Auto) 0.2 (0.0-0.7) K/uL Baso # (Auto) 0.0 (0.0-0.1) K/uL Nucleated RBC % 0.0 /100WBC Nucleated RBCs # 0 K/uL Sodium 141 (136-145) mmol/L Potassium 3.6 (3.5-5.1) mmol/L Chloride 104 (98-107) mmol/L Carbon Dioxide 26.1 (21.0-32.0) mmol/L BUN 4 L (7.0-18.0) mg/dL Creatinine 0.8 (0.6-1.0) mg/dL Est Cr Clr Drug Dosing 93.22 mL/min Estimated GFR (MDRD) > 60.0 ml/min Glucose 76 (74-106) mg/dL Calcium 8.7 (8.5-10.1) mg/dL Magnesium 1.6 L (1.8-2.4) mg/dL Total Bilirubin 0.6 (0.2-1.0) mg/dL AST 39 H (15-37) IU/L ALT 88 H (14-63) IU/L Alkaline Phosphatase 69 (46-116) U/L Total Protein 6.7 (6.4-8.2) g/dL Albumin 3.1 L (3.4-5.0) g/dL Globulin 3.6 (2.6-4.0) g/dL Albumin/Globulin Ratio 0.9 (0.9-1.6) Med Orders - Current: Current Medications Cyclobenzaprine HCl (Flexeril) 10 mg PO TID PRN PRN Reason: Muscle Spasm Last Admin: 08/15/20 16:52 Dose: 10 mg Documented by: Diazepam (Valium) 2 mg PO TID PRN PRN Reason: Pain Last Admin: 08/16/20 08:20 Dose: 2 mg Documented by: Docusate Sodium (Colace) 100 mg PO BID [facility] Last Admin: 08/16/20 09:52 Dose: Not Given Documented by: Fluoxetine HCl (Prozac) 20 mg PO DAILY [facility] Last Admin: 08/16/20 08:20 Dose: 20 mg Documented by: Hydromorphone HCl (Dilaudid) 1 mg IVPUSH Q3H PRN PRN Reason: Pain (severe 7-10) Last Admin: 08/16/20 10:59 Dose: 1 mg Documented by: Lactated Ringer's (Ringers, Lactated) 1,000 mls @ 125 mls/hr IV Q8H [facility] Last Admin: 08/16/20 06:44 Dose: 125 mls/hr Documented by: Pantoprazole Sodium 40 mg/ (Sodium Chloride) 10 mls @ 200 mls/hr IV Q12H [facility] Last Admin: 08/16/20 08:20 Dose: 200 mls/hr Documented by: Ondansetron HCl (Zofran) 4 mg IVPUSH Q4H PRN PRN Reason: Nausea Last Admin: 08/16/20 10:59 Dose: 4 mg Documented by: Oxycodone HCl (Oxycodone) 5 mg PO Q8H [facility] Last Admin: 08/16/20 05:45 Dose: 5 mg Documented by: Polyethylene Glycol (Miralax) 17 gm PO BEDTIME PRN PRN Reason: Constipation Sodium Chloride (Saline Flush) 2.5 ml FLUSH ASDIRECTED PRN PRN Reason: Keep Vein Open Sucralfate (Carafate) 1 gm PO QIDACANDBED [facility] Last Admin: 08/16/20 11:00 Dose: 1 gm Documented by: Discontinued Medications Diatrizoate Meglum/Diatrizoate Sod (Gastrografin 37%) 15 ml PO ONETIME STA Stop: 08/12/20 06:44 Last Admin: 08/12/20 06:47 Dose: 15 ml Documented by: Docusate Sodium (Colace) 100 mg PO BID PRN PRN Reason: Constipation Hydromorphone HCl (Dilaudid) 1 mg IVPUSH Q3H PRN PRN Reason: Pain Last Admin: 08/15/20 13:04 Dose: 1 mg Documented by: Lactated Ringer's (Ringers, Lactated) 1,000 mls @ 999 mls/hr IV ASDIRECTED [facility] Last Admin: 08/12/20 03:19 Dose: 999 mls/hr Documented by: Magnesium Sulfate (Magnesium Sulfate In Water Premix) 2 gm in 50 mls @ 50 mls/hr IV ONETIME ONE Stop: 08/13/20 10:00 Last Admin: 08/13/20 09:36 Dose: 50 mls/hr Documented by: Iopamidol (Isovue Multipack-370 (76%)) 100 ml IVPUSH ONETIME STA Stop: 08/12/20 06:35 Last Admin: 08/12/20 06:35 Dose: 100 ml Documented by: Morphine Sulfate (Morphine) 4 mg IM ONETIME ONE Stop: 08/12/20 03:08 Last Admin: 08/12/20 03:27 Dose: Not Given Documented by: Morphine Sulfate (Morphine) 4 mg IVPUSH ONETIME ONE Stop: 08/12/20 03:24 Last Admin: 08/12/20 03:20 Dose: 4 mg Documented by: Morphine Sulfate (Morphine) 4 mg IVPUSH ONETIME ONE Stop: 08/12/20 07:09 Last Admin: 08/12/20 07:21 Dose: 4 mg Documented by: Morphine Sulfate (Morphine) 4 mg IVPUSH ONETIME ONE Stop: 08/12/20 08:45 Last Admin: 08/12/20 09:15 Dose: 4 mg Documented by: Morphine Sulfate (Morphine) 4 mg IVPUSH Q3H PRN PRN Reason: Pain (severe 7-10) Last Admin: 08/15/20 16:51 Dose: 4 mg Documented by: Ondansetron HCl (Zofran) 4 mg IVPUSH ONETIME ONE Stop: 08/12/20 03:08 Last Admin: 08/12/20 03:18 Dose: 4 mg Documented by: Ondansetron HCl (Zofran) 4 mg IVPUSH ONETIME ONE Stop: 08/12/20 07:09 Last Admin: 08/12/20 07:22 Dose: 4 mg Documented by: Ondansetron HCl (Zofran) 4 mg IVPUSH ONETIME ONE Stop: 08/12/20 08:45 Last Admin: 08/12/20 09:15 Dose: 4 mg Documented by: Ondansetron HCl (Zofran) 4 mg IVPUSH ONETIME ONE Stop: 08/14/20 08:25 Last Admin: 08/14/20 09:21 Dose: 4 mg Documented by: Pantoprazole Sodium (Protonix) 40 mg PO DAILY [facility] Last Admin: 08/12/20 09:15 Dose: 40 mg Documented by: Pantoprazole Sodium (Protonix Iv) 40 mg IV Q12HR [facility] Last Admin: 08/14/20 21:01 Dose: 40 mg Documented by: Sodium Chloride (Saline Flush) 10 ml FLUSH ASDIRECTED PRN PRN Reason: Keep Vein Open Last Admin: 08/12/20 07:22 Dose: 10 ml Documented by: Sodium Chloride (Saline Flush) 2.5 ml FLUSH ASDIRECTED PRN PRN Reason: Keep Vein Open Last Admin: 08/12/20 07:22 Dose: 2.5 ml Documented by: Sucralfate (Carafate) 1 gm PO ONETIME ONE Stop: 08/12/20 08:42 Last Admin: 08/12/20 09:28 Dose: 1 gm Documented by: - Exam General: Alert, Oriented Neck: Supple Lungs: Clear to Auscultation, Normal Respiratory Effort Cardiovascular: Regular Rate, Regular Rhythm GI/Abdominal Exam: Normal Bowel Sounds, Soft, Tender. No: Hepatomegaly, Splenomegaly Extremities: Normal Inspection, Normal Range of Motion, Non-Tender Sepsis Event Note - Evaluation Sepsis Screening Result: No Definite Risk - Focused Exam Vital Signs: Vital Signs Temp Pulse Resp BP Pulse Ox 08/16/20 11:26 36.3 C 76 16 131/69 98 08/16/20 07:47 36.1 C 70 16 131/90 96 08/16/20 04:00 36.4 C 65 18 116/65 96 - Problem List & Annotations (1) Depression SNOMED Code(s): 67180299 Code(s): F32.9 - MAJOR DEPRESSIVE DISORDER, SINGLE EPISODE, UNSPECIFIED Status: Acute Current Visit: Yes (2) Epigastric abdominal pain SNOMED Code(s): 48361340 Code(s): R10.13 - EPIGASTRIC PAIN Status: Acute Priority: Medium Current Visit: Yes (3) Nausea and vomiting SNOMED Code(s): 87381189 Code(s): R11.2 - NAUSEA WITH VOMITING, UNSPECIFIED Status: Acute Priority: Medium Current Visit: Yes Qualifiers: Vomiting Intractability: intractable (4) Right upper quadrant abdominal pain SNOMED Code(s): 181542342 Code(s): R10.11 - RIGHT UPPER QUADRANT PAIN Status: Acute Priority: High Current Visit: Yes (5) History of Yoko-en-Y gastric bypass SNOMED Code(s): 068570254 Code(s): Z98.84 - BARIATRIC SURGERY STATUS Status: Chronic Priority: Low Current Visit: Yes - Problem List Review Problem List Initiated/Reviewed/Updated: Yes - My Orders Last 24 Hours: My Active Orders 08/15/20 14:00 oxyCODONE 5 mg PO Q8H 08/16/20 09:00 Docusate Sodium [Colace] 100 mg PO BID 08/16/20 Lunch Soft Diet [DIET] - Plan Plan:: This 29-year-old female was admitted with right upper quadrant and epigastric pain along with nausea and vomiting 1. RUQ pain/nausea vomiting -Consider postoperative pain vs Possibly consider biliary dyskinesia has family history of significant gallbladder disease including cholelithiasis. She denies any history of biliary concerns. but CT is negative, will monitor closely. -Right upper quadrant ultrasound ultrasound reveals mildly enlarged liver 21 cm with hepatic steatosis. Small amount of gallbladder sludge mild nonspecific prominence of the common bile duct no other signs of acute cholecystitis. -Dr. Yang, general surgery recs noted, may obtain repeat US in AM if pain gets worse, so far it has improved since admission -cont oxycodone, zofran, PPI, Dilaudid -Advance diet to soft diet VTE prophylaxis: SCDs CODE STATUS: full code Dispo 1 to 2 days pending improvement will make inpatient today as she likely will need greater than 2 midnight stay.
[2020-08-16] MEDS ORDERED: Iopamidol 755 MG/ML 500 ML Multipack Bottle IVPUSH ONE (16:07)
--- NOTE | 2020-08-16 16:34 | CT ---
INDICATION: Abdominal pain status post gastric bypass surgery, right upper quadrant tenderness TECHNIQUE: CT Abdomen and pelvis with i.v. contrast. Coronal and sagittal reformats were obtained. CONTRAST: 100 mL Isovue 370 COMPARISON: 08/12/2020 FINDINGS: Lower chest: Unremarkable. Liver: Unremarkable. Spleen: Unremarkable. Pancreas: Unremarkable. Gallbladder: Unremarkable. Kidney: Unremarkable. No kidney or ureteral stones or obstruction seen. Adrenal: Unremarkable. Bowel: Previous antegastric-antecolic gastric bypass noted with no definite obstruction of the biliopancreatic limb or Yoko-en-Y loop seen. The colon is opacified by oral contrast to the level of the rectum. The appendix is normal in appearance and size. Vascular: Unremarkable. Lymph: Unremarkable. Peritoneum: Unremarkable. No pneumoperitoneum is seen. Trace amount of ascites is present and is likely physiologic in origin. Pelvis: Unremarkable. Soft tissue: Unremarkable. Bone: Unremarkable for age. IMPRESSION: 1. Unremarkable with no CT correlate for the patient`s symptoms seen. Dictated by Marc Thoams MD @ 08/16/2020 4:32:41 PM Please note that all CT scans at this facility use dose modulation, iterative reconstruction, and/or weight-based dosing when appropriate to reduce radiation dose to as low as reasonably achievable. Dictated by: Marc Thomas MD @ 08/16/2020 16:32:47 (Electronically Signed)
[2020-08-17] MEDS: Lactated Ringers 1,000 ML IV SCH ×2 (00:55→07:43)
[2020-08-17] MEDS: HYDROmorphone 1 MG/ML Syringe IVPUSH PRN ×2 (02:36→05:40)
[2020-08-17] MEDS: Ondansetron 4 MG/2 ML SDV IVPUSH PRN (03:37)
[2020-08-17] MEDS: oxyCODONE 5 MG Tab PO SCH ×2 (03:37→09:44)
[2020-08-17] MEDS: Sucralfate Suspension 1 GM/10 ML Cup PO SCH (06:40)
[2020-08-17 06:59] LABS: BLOOD UREA NITROGEN,BUN 3 mg/dL (7.0-18.0); CARBON DIOXIDE,CO2 25.6 mmol/L (21.0-32.0); CHLORIDE,CL 104 mmol/L (98-107); GLUCOSE RANDOM 77 mg/dL (74-106); POTASSIUM,K 3.7 mmol/L (3.5-5.1); SODIUM,NA 141 mmol/L (136-145)
[2020-08-17 07:41] VITALS: BP 123/80; PULSE 89
[2020-08-17] MEDS ORDERED: Magnesium Sulfate/Water 2 GM/50 ML BAG IV ONE (07:53)
[2020-08-17] MEDS: Pantoprazole 40 MG in Sodium Chloride 0.9% 10 ML IV SCH (08:46)
[2020-08-17] MEDS: Docusate Sodium 100 MG Cap PO SCH (08:48)
[2020-08-17] MEDS: FLUoxetine 20 MG Cap PO SCH (09:43)
--- NOTE | 2020-08-17 13:19 | PCM.DCSUM1 ---
Discharge Summary - Hospital Course Brief History: This 29-year-old female with PMH of recent Yoko-en-Y on July [address] George in [place], anxiety and depression and obesity presented to the ER with worsening nausea vomiting and abdominal pain that started 08/11/2020. She reports yesterday the pain started around 3 PM in the afternoon. She said it was located to the right upper quadrant it was sharp and somewhat gnawing and dull almost like a muscle cramp right up under her right rib. The pain radiated slightly to her epigastric region. She at the time took Flexeril, oxycodone, and Zofran which she had at home. These did not help as she quickly vomited and from that point continued to vomit the rest of the evening. The pain has continued to worsen and she is not able to keep any oral intake down. She denies any fevers chills chest pain shortness of breath. Denies any left upper quadrant pain or other abdominal pain. No constipation or diarrhea no black or bloody bowel movements. She denies any urinary concerns such as dysuria or frequency urgency. She reports that she has otherwise been feeling well since surgery, she has been advancing diet per her protocol and was starting to eat mechanical soft foods including meats. She denies smoking, she quit approximately 5 months ago no alcohol use and no recreational drug use. In the ER lab work essentially normal. CT scan was obtained with oral contrast that showed interval postoperative changes from her Yoko-en-Y gastric bypass a nastomosis appeared intact without evidence of complication no bowel dilation no stool burden negative appendix small amount of free fluid in pelvis no focal fluid collection or intraperitoneal free air. Liver gallbladder spleen. And adrenal glands are negative no acute findings noted in the abdomen or pelvis. Chest x-ray negative in the ER she was given 1 L LR morphine and Zofran. The ER physician contacted Dr. Larry in [facility]. Initially ER was recommending transfer but [facility] had no bed availability. Dr. Larry recommended Carafate PPI and symptom control. She also recommended an upper GI series but we are unable to do that at our facility. we will manage symptoms. - Discharge Data Discharge Date: 08/17/20 Discharge Disposition: Home, Self-Care 01 Condition: Good - Referral to Home Health Primary Care Physician: Markus Smith MD - Discharge Diagnosis/Problem(s) (1) Right upper quadrant abdominal pain SNOMED Code(s): 075096808 ICD Code: R10.11 - RIGHT UPPER QUADRANT PAIN Status: Acute Priority: High (2) Nausea and vomiting SNOMED Code(s): 79498941 ICD Code: R11.2 - NAUSEA WITH VOMITING, UNSPECIFIED Status: Acute Priority: Medium Qualifiers: Vomiting Intractability: intractable (3) History of nephrolithiasis SNOMED Code(s): 342178088 ICD Code: Z87.442 - PERSONAL HISTORY OF URINARY CALCULI Status: Acute (4) Depression SNOMED Code(s): 86790001 ICD Code: F32.9 - MAJOR DEPRESSIVE DISORDER, SINGLE EPISODE, UNSPECIFIED Status: Acute (5) History of Yoko-en-Y gastric bypass SNOMED Code(s): 409465153 ICD Code: Z98.84 - BARIATRIC SURGERY STATUS Status: Chronic Priority: Low - Patient Summary/Data Consults: Consultations 08/14/20 09:41 Consult to Physician [CONS] Routine Hospital Course: Admitting diagnoses Abdominal pain Nausea vomiting Discharge diagnoses Abdominal pain nausea vomiting PMH: Recent Yoko-en-Y 07/[address] Kendy Alexander was admitted secondary to right upper quadrant abdominal pain along with nausea and vomiting. Initial CT of the abdomen pelvis with contrast revealed mild dilation of common bile duct no cholelithiasis or cholecystitis noted. No acute concerns with recent Yoko-en-Y, anastomosis appeared intact. Right upper quadrant ultrasound was obtained on admission as well again showing mild common bile duct dilation to 7 mm no cholelithiasis noted. LFTs remained normal with no elevation. Bilirubin stable. Lactic acid remained normal during her stay. She was treated with Dilaudid, Zofran as well as Valium and Flexeril which w was a home medication. We had reached out to Dr. Larry on admission. She had reviewed images and felt there was nothing postsurgical that was concerning she really urged for her to be seen at follow-up on 08/18/2020. She also recommended an upper GI series which we are unable to complete here due to not having radiologist in house. She recommended attempting to use Valium to see if that helps with symptoms. Valium did make her sleep and helped pain and nausea sligh tly. Over the weekend she was kept on clear liquid diet and IV fluids. She continued to have exquisite tenderness to right upper quadrant. Dr. Yang, general surgeon, did evaluate her on Monday. He felt no surgical intervention was indicated at this time and did agree with her needing to see Dr. Larry as well as we are unable to get a HIDA scan due to her need for narcotics at this time. She was explained to that the HIDA scan is very sensitive to the body receiving narcotics that this may alter the test. She agreed with this and did agree that she wanted to see Dr. Larry before any surgical intervention was needed. Today she is eager to go home. Tolerating small amounts of oral liquids. She was encouraged to stay clear liquid diet until follow-up with Dr. George. She continues to have exquisite tenderness to very light touch to her right upper quadrant. Reporting it feels like a muscle pull or bruise. Incisions to abdomen all look intact with no erythema or fluctuance. All healing and scabbed. She is having bowel movements during her stay here. She is to return to the ER or clinic if concerns should arise. She is headed to [place] for her appointment with Dr. Larry. She was given 5 tabs of Percocet 5/325 as well as Valium 2 mg p.o. as needed 2 tabs with no refills. She also has Zofran Flexeril and a couple tablets of Percocet left at home. These prescr iptions will get her to appointment where she can obtain further refills if needed. - Patient Instructions Diet: Clear Liquid Diet Activity: As Tolerated, No Strenuous Activities Driving: Do Not Drive Showering/Bathing: May Shower Notify Provider of: Fever, Increased Pain, Swelling and Redness, Drainage, Nausea and/or Vomiting - Discharge Plan *PRESCRIPTION DRUG MONITORING PROGRAM REVIEWED*: Not Applicable *COPY OF PRESCRIPTION DRUG MONITORING REPORT IN PATIENT LEONELA: Not Applicable Prescriptions/Med Rec: Acetaminophen/oxyCODONE [Percocet 325-5 MG] 1 each PO TID PRN #5 tab PRN Reason: Pain Pantoprazole Sodium [Protonix] 20 mg PO BID #60 tablet. Sucralfate 1 gm PO QIDACANDBED #120 tablet diazePAM [Valium] 2 mg PO DAILY PRN #2 tablet PRN Reason: Nausea Home Medications: Home Meds Cyclobenzaprine [Flexeril] 10 mg PO TID PRN 08/12/20 [History] FLUoxetine [PROzac] 20 mg PO DAILY 08/12/20 [History] Multivit-Min/Iron/Folic Acid/K [Bariatric Mv-Iron 45 mg Cap] 1 tab PO DAILY 08/12/20 [History] Ondansetron [Zofran] 4 mg PO Q6HR PRN 08/12/20 [History] Montelukast [Singulair] 10 mg PO BEDTIME 08/13/20 [History] Acetaminophen/oxyCODONE [Percocet 325-5 MG] 1 each PO TID PRN #5 tab 08/17/20 [Rx] Pantoprazole Sodium [Protonix] 20 mg PO BID #60 tablet. 08/17/20 [Rx] Sucralfate 1 gm PO QIDACANDBED #120 tablet 08/17/20 [Rx] diazePAM [Valium] 2 mg PO DAILY PRN #2 tablet 08/17/20 [Rx] Oxygen Therapy Mode: Room Air Patient Handouts: Acetaminophen; Oxycodone tablets, Sucralfate tablets, Diazepam tablets Referrals: Yanet Larry MD [Ordering Only Provider] - 08/18/20 Markus Smith MD [Primary Care Provider] - 08/24/20 10:30 am - Discharge Summary/Plan Comment DC Time >30 min.: No - Patient Data Vitals - Most Recent: Last Vital Signs Temp 96.9 F 08/17/20 07:41 Pulse 89 08/17/20 07:41 Resp 16 08/17/20 07:41 BP 123/80 08/17/20 07:41 Pulse Ox 96 08/17/20 07:41 Weight - Most Recent: 131.995 kg I&O - Last 24 hours: Intake & Output 08/16/20 08/17/20 08/17/20 22:59 06:59 14:59 Intake Total 2060 1800 720 Output Total 600 0 450 Balance 1460 1800 270 Lab Results - Last 24 hrs: Laboratory Results - last 24 hr 08/16/20 08/17/20 08/17/20 Range/Units 16:46 05:40 05:40 WBC 6.81 (4.0-11.0) K/uL RBC 4.91 (4.30-5.90) M/uL Hgb 12.9 (12.0-16.0) g/dL Hct 42.0 (36.0-46.0) % MCV 85.5 (80.0-98.0) fL MCH 26.3 L (27.0-32.0) pg MCHC 30.7 L (31.0-37.0) g/dL RDW Std Deviation 43.5 (28.0-62.0) fl RDW Coeff of Bandar 14 (11.0-15.0) % Plt Count 219 (150-400) K/uL MPV 11.30 (7.40-12.00) fL Neut % (Auto) 59.6 (48.0-80.0) % Lymph % (Auto) 28.8 (16.0-40.0) % [place] % (Auto) 7.2 (0.0-15.0) % Eos % (Auto) 4.0 (0.0-7.0) % Baso % (Auto) 0.4 (0.0-1.5) % Neut # (Auto) 4.1 (1.4-5.7) K/uL Lymph # (Auto) 2.0 (0.6-2.4) K/uL [place] # (Auto) 0.5 (0.0-0.8) K/uL Eos # (Auto) 0.3 (0.0-0.7) K/uL Baso # (Auto) 0.0 (0.0-0.1) K/uL Nucleated RBC % 0.0 /100WBC Nucleated RBCs # 0 K/uL Sodium 141 (136-145) mmol/L Potassium 3.7 (3.5-5.1) mmol/L Chloride 104 (98-107) mmol/L Carbon Dioxide 25.6 (21.0-32.0) mmol/L BUN 3 L (7.0-18.0) mg/dL Creatinine 0.8 (0.6-1.0) mg/dL Est Cr Clr Drug Dosing 93.22 mL/min Estimated GFR (MDRD) > 60.0 ml/min Glucose 77 (74-106) mg/dL POC Glucose 71 (60-110) mg/dL Calcium 8.6 (8.5-10.1) mg/dL Phosphorus 3.8 (2.6-4.7) mg/dL Magnesium 1.5 L (1.8-2.4) mg/dL Total Bilirubin 0.6 (0.2-1.0) mg/dL AST 33 (15-37) IU/L ALT 78 H (14-63) IU/L Alkaline Phosphatase 68 (46-116) U/L Total Protein 6.6 (6.4-8.2) g/dL Albumin 3.1 L (3.4-5.0) g/dL Globulin 3.5 (2.6-4.0) g/dL Albumin/Globulin Ratio 0.9 (0.9-1.6) JESUS Results - Last 24 hrs: Microbiology 08/16/20 17:30 C. difficile Antigen & Toxins A,B - Final Stool / Feces Med Orders - Current: Current Medications Discontinued Medications Cyclobenzaprine HCl (Flexeril) 10 mg PO TID PRN PRN Reason: Muscle Spasm Last Admin: 08/15/20 16:52 Dose: 10 mg Documented by: Diatrizoate Meglum/Diatrizoate Sod (Gastrografin 37%) 15 ml PO ONETIME STA Stop: 08/12/20 06:44 Last Admin: 08/12/20 06:47 Dose: 15 ml Documented by: Diazepam (Valium) 2 mg PO TID PRN PRN Reason: Pain Last Admin: 08/16/20 22:00 Dose: 2 mg Documented by: Docusate Sodium (Colace) 100 mg PO BID PRN PRN Reason: Constipation Docusate Sodium (Colace) 100 mg PO BID [facility] Last Admin: 08/17/20 08:48 Dose: Not Given Documented by: Fluoxetine HCl (Prozac) 20 mg PO DAILY [facility] Last Admin: 08/17/20 09:43 Dose: 20 mg Documented by: Hydromorphone HCl (Dilaudid) 1 mg IVPUSH Q3H PRN PRN Reason: Pain Last Admin: 08/15/20 13:04 Dose: 1 mg Documented by: Hydromorphone HCl (Dilaudid) 1 mg IVPUSH Q3H PRN PRN Reason: Pain (severe 7-10) Last Admin: 08/17/20 05:40 Dose: 1 mg Documented by: Lactated Ringer's (Ringers, Lactated) 1,000 mls @ 999 mls/hr IV ASDIRECTED [facility] Last Admin: 08/12/20 03:19 Dose: 999 mls/hr Documented by: Lactated Ringer's (Ringers, Lactated) 1,000 mls @ 125 mls/hr IV Q8H [facility] Last Admin: 08/17/20 07:43 Dose: 125 mls/hr Documented by: Magnesium Sulfate (Magnesium Sulfate In Water Premix) 2 gm in 50 mls @ 50 mls/hr IV ONETIME ONE Stop: 08/13/20 10:00 Last Admin: 08/13/20 09:36 Dose: 50 mls/hr Documented by: Pantoprazole Sodium 40 mg/ (Sodium Chloride) 10 mls @ 200 mls/hr IV Q12H [facility] Last Admin: 08/17/20 08:46 Dose: 200 mls/hr Documented by: Magnesium Sulfate (Magnesium Sulfate In Water Premix) 2 gm in 50 mls @ 50 mls/hr IV ONETIME ONE Stop: 08/17/20 08:52 Last Admin: 08/17/20 08:46 Dose: 50 mls/hr Documented by: Iopamidol (Isovue Multipack-370 (76%)) 100 ml IVPUSH ONETIME STA Stop: 08/12/20 06:35 Last Admin: 08/12/20 06:35 Dose: 100 ml Documented by: Iopamidol (Isovue Multipack-370 (76%)) 100 ml IVPUSH ONETIME ONE Stop: 08/16/20 16:08 Last Admin: 08/16/20 16:07 Dose: 100 ml Documented by: Morphine Sulfate (Morphine) 4 mg IM ONETIME ONE Stop: 08/12/20 03:08 Last Admin: 08/12/20 03:27 Dose: Not Given Documented by: Morphine Sulfate (Morphine) 4 mg IVPUSH ONETIME ONE Stop: 08/12/20 03:24 Last Admin: 08/12/20 03:20 Dose: 4 mg Documented by: Morphine Sulfate (Morphine) 4 mg IVPUSH ONETIME ONE Stop: 08/12/20 07:09 Last Admin: 08/12/20 07:21 Dose: 4 mg Documented by: Morphine Sulfate (Morphine) 4 mg IVPUSH ONETIME ONE Stop: 08/12/20 08:45 Last Admin: 08/12/20 09:15 Dose: 4 mg Documented by: Morphine Sulfate (Morphine) 4 mg IVPUSH Q3H PRN PRN Reason: Pain (severe 7-10) Last Admin: 08/15/20 16:51 Dose: 4 mg Documented by: Ondansetron HCl (Zofran) 4 mg IVPUSH ONETIME ONE Stop: 08/12/20 03:08 Last Admin: 08/12/20 03:18 Dose: 4 mg Documented by: Ondansetron HCl (Zofran) 4 mg IVPUSH ONETIME ONE Stop: 08/12/20 07:09 Last Admin: 08/12/20 07:22 Dose: 4 mg Documented by: Ondansetron HCl (Zofran) 4 mg IVPUSH ONETIME ONE Stop: 08/12/20 08:45 Last Admin: 08/12/20 09:15 Dose: 4 mg Documented by: Ondansetron HCl (Zofran) 4 mg IVPUSH Q4H PRN PRN Reason: Nausea Last Admin: 08/17/20 03:37 Dose: 4 mg Documented by: Ondansetron HCl (Zofran) 4 mg IVPUSH ONETIME ONE Stop: 08/14/20 08:25 Last Admin: 08/14/20 09:21 Dose: 4 mg Documented by: Oxycodone HCl (Oxycodone) 5 mg PO Q8H [facility] Last Admin: 08/16/20 13:30 Dose: 5 mg Documented by: Oxycodone HCl (Oxycodone) 10 mg PO Q8H [facility] Last Admin: 08/17/20 09:44 Dose: 10 mg Documented by: Pantoprazole Sodium (Protonix) 40 mg PO DAILY [facility] Last Admin: 08/12/20 09:15 Dose: 40 mg Documented by: Pantoprazole Sodium (Protonix Iv) 40 mg IV Q12HR [facility] Last Admin: 08/14/20 21:01 Dose: 40 mg Documented by: Polyethylene Glycol (Miralax) 17 gm PO BEDTIME PRN PRN Reason: Constipation Sodium Chloride (Saline Flush) 10 ml FLUSH ASDIRECTED PRN PRN Reason: Keep Vein Open Last Admin: 08/12/20 07:22 Dose: 10 ml Documented by: Sodium Chloride (Saline Flush) 2.5 ml FLUSH ASDIRECTED PRN PRN Reason: Keep Vein Open Last Admin: 08/12/20 07:22 Dose: 2.5 ml Documented by: Sodium Chloride (Saline Flush) 2.5 ml FLUSH ASDIRECTED PRN PRN Reason: Keep Vein Open Sucralfate (Carafate) 1 gm PO ONETIME ONE Stop: 08/12/20 08:42 Last Admin: 08/12/20 09:28 Dose: 1 gm Documented by: Sucralfate (Carafate) 1 gm PO QIDACANDBED JATIN Last Admin: 08/17/20 06:40 Dose: 1 gm Documented by: - Exam Quality Assessment: Reports: DVT Prophylaxis. Denies: Supplemental Oxygen General: Reports: Alert, Oriented, Cooperative, No Acute Distress Lungs: Reports: Clear to Auscultation, Normal Respiratory Effort Cardiovascular: Reports: Regular Rate, Regular Rhythm GI/Abdominal Exam: Normal Bowel Sounds, Soft, Tender (Exquisite tenderness to right upper quadrant, unable to fully assess that she pushes hands away. Repo rts that any slight touching to the right upper quadrant causes significant pain. No rashes or erythema noted to the site.) Back Exam: Reports: Normal Inspection, Full Range of Motion Skin: Reports: Warm, Dry Wound/Incisions: Reports: Healing Well, Other (6 lap sites to her abdomen remain healing with scabs no erythema or fluctuance noted.) Neurological: Reports: No New Focal Deficit Psy/Mental Status: Reports: Alert, Normal Affect, Normal Mood
== END 2020-08-17 10:15 | disposition home or self-care (01) | DRG 251 ==
LOC: MW.ED 02:53 → MW.MS 08:41 → OBSVTOIN 08-14 12:54 → MW.MS 08-14 13:24
PROVIDERS: ADMIT Internal Medicine; ATTEND Internal Medicine
DX: R10.11 Right upper quadrant pain (principal); R11.2 Nausea with vomiting, unspecified; Z68.42 Body mass index [BMI] 45.0-49.9, adult; R10.13 Epigastric pain; F41.9 Anxiety disorder, unspecified; E66.9 Obesity, unspecified; H54.7 Unspecified visual loss; G47.00 Insomnia, unspecified; K21.9 Gastro-esophageal reflux disease without esophagitis; E28.2 Polycystic ovarian syndrome; G43.909 Migraine, unspecified, not intractable, without status migrainosus; F31.9 Bipolar disorder, unspecified; Z87.442 Personal history of urinary calculi; Z98.84 Bariatric surgery status; Z79.899 Other long term (current) drug therapy; Z87.891 Personal history of nicotine dependence; Z91.048 Other nonmedicinal substance allergy status; Z88.5 Allergy status to narcotic agent; Z91.040 Latex allergy status; Z88.8 Allergy status to other drugs, medicaments and biological substances; Z20.828 Contact with and (suspected) exposure to other viral communicable diseases
CPT/HCPCS: 36415; 71045; 71045-26; 74177; 74177-26; 74178; 74178-26; 76705; 76705-26; 80053; 81003; 82962; 83605; 83690; 83735; 84100; 84703; 85025; 87324; 96361; 96365; 96374; 96375; 96376; 99285; 99285-25; A9270-GY; C9113; G0378; J1170; J2270; J2405; J3475; J7120; Q9963; Q9967; U0002

== ENCOUNTER 2020-09-08 23:45 | Emergency (ER) | payer BC ==
[2020-09-09] MEDS ORDERED: Lactated Ringers 1,000 ML IV ONE (00:04)
[2020-09-09] MEDS ORDERED: Prochlorperazine 10 MG/2 ML SDV IVPUSH ONE (00:05)
[2020-09-09] MEDS ORDERED: diphenhydrAMINE 50 MG/ML SDV IVPUSH ONE (00:05)
[2020-09-09] MEDS ORDERED: Morphine 4 MG/ML Syringe IVPUSH ONE (00:06)
--- NOTE | 2020-09-09 00:13 | EDM.PDOC ---
ED HPI GENERAL MEDICAL PROBLEM - General Chief Complaint: General Stated Complaint: RECENT SURGERIES, INCISION LEAKING Time Seen by Provider: 09/08/20 23:50 - History of Present Illness INITIAL COMMENTS - FREE TEXT/NARRATIVE: CHIEF COMPLAINT(S): Abdominal pain and possible wound infection HISTORY OF PRESENT ILLNESS: This is a 29-year-old woman with a past medical history of gastric bypass who comes to the emergency department with a chief complaint of abdominal pain and possible wound infection. The patient states that on July 27, 2020 she had a gastric bypass. She states that she was discharged and then she came to the emergency department here on August 12, 2020 for vomiting pain and was treated symptomatically. She states that she was discharged in August 17, 2020 and was sent to [place] for further evaluation. She states that on August 19, 2020 she had an additional surgery for which they repaired a internal hernia and a cholecystectomy. She states that she was discharged that day and has been doing fine since then. She states however for the last 3 days she has been having increased epigastric pain with eating and is starting to feel weak. She states that she feels nauseous every time she eats and she has tried her home Zofran which is not helping. She states that today she had 2 small pieces of chicken for which she chewed completely into a paste however she states that after that she states it felt like she was "sucker punched in the center of her abdomen." She states that she does have 7.5 out of 10 pain which is constant but worsens with eating. She has not yet had any vomiting but feels like she is severe nausea. She states that she took a Percocet approximately at 5:30 PM today which helped for approximately half an hour and the pain returned. She states that in addition to that she was showering prior to arrival and as she was drying the scab on her surgical site came off and it drained pus which soaked through 2 handfuls of toilet paper. She denies any fevers, chills, chest pain, shortness of breath, diarrhea, melena, or hematochezia. REVIEW OF SYSTEMS: Constitutional: Denies fever, chills. Eyes: Denies eye pain Ears, Nose, Mouth, & Throat: Denies earache Cardiovascular: Denies chest pain Respiratory: Denies shortness of breath Gastrointestinal: Positive for epigastric abdominal pain and nausea. Denies vomiting, diarrhea, hematochezia, hematemesis, bilious emesis, melena Genitourinary: Denies hematuria, dysuria Skin: Positive for possible postop wound infection Neurological: Denies blurred vision Psychiatric: Denies depression PAST MEDICAL HISTORY: As per history of present illness and as reviewed below otherwise noncontributory. SURGICAL HISTORY: As per history of present illness and as reviewed below otherwise noncontributory. SOCIAL HISTORY: As per history of present illness and as reviewed below otherwise noncontributory. FAMILY HISTORY: As per history of present illness and as reviewed below otherwise noncontributory. EXAMINATION OF ORGAN SYSTEMS/BODY AREAS: Constitutional: Blood pressure, HR, RR, Temp General: Obese woman who is not in any acute distress. Psychiatric: Appropriate mood and affect. Eyes: No scleral icterus or conjunctival erythema ENMT: Moist mucous membranes. No pharyngeal erythema Cardiovascular: Tachycardic but regular. No gallops, murmurs, or rubs. Bilateral upper extremity pulses symmetric and intact. No peripheral edema. No JVD. Respiratory: Lungs clear to auscultation bilaterally. No wheezes, rales, or rhonchi. Gastrointestinal: Soft, nondistended, there is severe tenderness to palpation in the epigastric region with overlying skin changes with a bruise. There is no rebound or guarding. In addition there are multiple surgical incision sites with the right upper quadrant incision site which appears to be open without any active purulent drainage and mild surrounding erythema. Underneath this area there appears to be an area of induration and hardness. No fluctuance. Nor moactive bowel sounds Genitourinary: No suprapubic tenderness no CVA tenderness Musculoskeletal: Normal range of motion. Skin: As noted above Neurological: Alert, GCS 15 MEDICAL DECISION MAKING AND COURSE IN THE ED WITH INTERPRETATION/REVIEW OF DIAGNOSTIC STUDIES: This is a 29-year-old woman with a past medical history of gastric bypass in July with multiple recent ED visits and subsequent surgeries who comes to the emergency department with epigastric abdominal pain and possible wound infection. At this time differential includes abscess versus internal hernia versus anastomotic leak. The patient is tachycardic however she is afebrile. This could be secondary to pain. However we will obtain CBC, CMP, lipase, lactic acid, coags, and urinalysis. Will obtain a CT abdomen pelvis with contrast for further evaluation. We will provide the patient with morphine, Compazine, and Benadryl. Laboratory: CBC reveals a leukocytosis of 11.14 which is up from prior at 6. Coags are within normal limits. Lactic acid is 1.2. CMP reveals hypokalemia at 3.3, elevated creatinine of 1.2 and a transaminitis with an AST of 54 and ALT of 131. Increased alkaline phosphatase at 123. Lipase is normal. hCG is negative. Covid is negative Urinalysis was a clean catch and was trace for leukocyte esterase, negative for nitrites, and small for blood. WBC count 5-7. Interpretation: Negative The radiological images were viewed by myself along with reading the report from the radiologist. CT abdomen pelvis with contrast reveals small round hypodensity in the gallbladder bed which may represent a small fluid or abscess after cholecystectomy. They recommend right upper quadrant ultrasound. There is postoperative changes of the bypass procedure without any evidence of complication. There is nonobstructive nephrolithiasis. After imaging I did reevaluate the patient. She stated that she felt much better. Her vitals remained stable. I discussed the results of the CT and I li ke to get an ultrasound. She was amenable to this plan. The radiological images were viewed by myself along with reading the report from the radiologist. Right upper quadrant ultrasound reveals a CBD enlargement which may be related to cholecystectomy. In these cholecystectomy surgical bed there is a well- circumscribed hypoechoic focus with a punctate central focus with increased echogenicity measuring 2.2 x 1.6 cm. I contacted the patient's gastric bypass surgeon and spoke with Dr. Avendano who is her surgeon's partner. He did review the patient's chart and recommended antibiotics for 2 weeks and that he would contact his PA in the morning to set up a appropriate follow-up appointment earlier. I did discuss this with the patient and she was amenable to this plan. Currently her symptoms have completely resolved. Patient should return to the emergency department for any new or worsening symptoms. DISPOSITION: The patient was discharged home in stable condition. The patient will follow up with Dr. Larry. CONDITION: Fair PROCEDURES: None FINAL IMPRESSION(S)/DIAGNOSES: 1. Acute abdominal pain possibly secondary to gallbladder fossa abscess Adan Garcia M.D. Abdomen Pain Score (Numeric/FACES): 8 - Related Data Allergies Allergy/AdvReac Type Severity Reaction Status Date / Time adhesive Allergy Hives Verified 09/09/20 00:18 hydrocodone [From Vicodin] Allergy Irritabilit Verified 09/09/20 00:18 y latex Allergy Hives Verified 09/09/20 00:18 metoclopramide [From Reglan] Allergy Irritabilit Verified 09/09/20 00:18 y promethazine [From Phenergan] Allergy Irritabilit Verified 09/09/20 00:18 y sumatriptan [From Imitrex] Allergy Irritabilit Verified 09/09/20 00:18 y Home Meds: Home Meds Cyclobenzaprine [Flexeril] 10 mg PO TID PRN 08/12/20 [History] FLUoxetine [PROzac] 20 mg PO DAILY 08/12/20 [History] Multivit-Min/Iron/Folic Acid/K [Bariatric Mv-Iron 45 mg Cap] 1 tab PO DAILY 08/12/20 [History] Ondansetron [Zofran] 4 mg PO Q6HR PRN 08/12/20 [History] Montelukast [Singulair] 10 mg PO BEDTIME 08/13/20 [History] Acetaminophen/oxyCODONE [Percocet 325-5 MG] 1 each PO TID PRN #5 tab 08/17/20 [Rx] diazePAM [Valium] 2 mg PO DAILY PRN #2 tablet 08/17/20 [Rx] Past Medical History HEENT History: Reports: Impaired Vision Other HEENT History: wears glasses Cardiovascular History: Reports: None Respiratory History: Reports: Asthma, Sleep Apnea Gastrointestinal History: Reports: GERD, Irritable Bowel Syndrome Genitourinary History: Reports: Renal Calculus [employer] History: Reports: Polycystic Ovaries Musculoskeletal History: Reports: None Neurological History: Reports: Migraines Psychiatric History: Reports: Anxiety, Bipolar, Depression Endocrine/Metabolic History: Reports: Obesity/BMI 30+ Hematologic History: Reports: None Immunologic History: Reports: None Oncologic (Cancer) History: Reports: None Dermatologic History: Reports: None - Infectious Disease History Infectious Disease History: Reports: Chicken Pox - Past Surgical History Head Surgeries/Procedures: Reports: None HEENT Surgical History: Reports: None Respiratory Surgical History: Reports: None GI Surgical History: Reports: Bariatric Procedure Female Surgical History: Reports: Lithotripsy/ESWL, Other (See Below) Other Female Surgeries/Procedures: Nephrostomy of scar tissue, ureterscopy Neurological Surgical History: Reports: None Social & Family History - Family History Family Medical History: No Pertinent Family History - Caffeine Use Caffeine Use: Reports: None ED ROS GENERAL - Review of Systems Review Of Systems: See Below ED EXAM, GENERAL - Physical Exam Exam: See Below Course - Vital Signs Last Recorded V/S: Last Vital Signs Temp 37.1 C 09/09/20 03:41 Pulse 76 09/09/20 03:41 Resp 18 09/09/20 03:41 BP 131/88 09/09/20 03:41 Pulse Ox 96 09/09/20 03:41 - Orders/Labs/Meds Labs: Laboratory Tests 09/09/20 09/09/20 09/09/20 Range/Units 00:15 00:15 00:15 WBC 11.14 H (4.0-11.0) K/uL RBC 5.37 (4.30-5.90) M/uL Hgb 14.6 (12.0-16.0) g/dL Hct 44.5 (36.0-46.0) % MCV 82.9 (80.0-98.0) fL MCH 27.2 (27.0-32.0) pg MCHC 32.8 (31.0-37.0) g/dL RDW Std Deviation 45.2 (28.0-62.0) fl RDW Coeff of Bandar 15 (11.0-15.0) % Plt Count 247 (150-400) K/uL MPV 10.90 (7.40-12.00) fL Neut % (Auto) 63.2 (48.0-80.0) % Lymph % (Auto) 28.7 (16.0-40.0) % [place] % (Auto) 6.7 (0.0-15.0) % Eos % (Auto) 1.0 (0.0-7.0) % Baso % (Auto) 0.4 (0.0-1.5) % Neut # (Auto) 7.0 H (1.4-5.7) K/uL Lymph # (Auto) 3.2 H (0.6-2.4) K/uL [place] # (Auto) 0.8 (0.0-0.8) K/uL Eos # (Auto) 0.1 (0.0-0.7) K/uL Baso # (Auto) 0.0 (0.0-0.1) K/uL INR 1.13 Lactate 1.2 (0.20-2.00) mmol/L Sodium (136-145) mmol/L Potassium (3.5-5.1) mmol/L Chloride (98-107) mmol/L Carbon Dioxide (21.0-32.0) mmol/L BUN (7.0-18.0) mg/dL Creatinine (0.6-1.0) mg/dL Est Cr Clr Drug Dosing mL/min Estimated GFR (MDRD) ml/min Glucose (74-106) mg/dL Calcium (8.5-10.1) mg/dL Total Bilirubin (0.2-1.0) mg/dL AST (15-37) IU/L ALT (14-63) IU/L Alkaline Phosphatase (46-116) U/L Total Protein (6.4-8.2) g/dL Albumin (3.4-5.0) g/dL Globulin (2.6-4.0) g/dL Albumin/Globulin Ratio (0.9-1.6) Lipase (73-393) U/L HCG, Qual (NEG) Urine Color Urine Appearance Urine pH (5.0-8.0) Ur Specific [place] (1.001-1.035) Urine Protein (NEGATIVE) mg/dL Urine Glucose (UA) (NEGATIVE) mg/dL Urine Ketones (NEGATIVE) mg/dL Urine Occult Blood (NEGATIVE) Urine Nitrite (NEGATIVE) Urine Bilirubin (NEGATIVE) Urine Ictotest Urine Urobilinogen (<2.0) EU/dL Ur Leukocyte Esterase (NEGATIVE) U Hyaline Cast (Auto) (0-2/LPF) Urine RBC (0-2/HPF) Urine WBC (0-5/HPF) Ur Epithelial Cells (NONE-FEW) Calcium Oxalate Crystal (NEGATIVE) Amorphous Sediment (NEGATIVE) Urine Bacteria (NEGATIVE) Urine Mucus (NONE-MOD) SARS-CoV-2 RNA (BETTY) (NEGATIVE) 09/09/20 09/09/20 09/09/20 Range/Units 00:15 00:15 01:30 WBC (4.0-11.0) K/uL RBC (4.30-5.90) M/uL Hgb (12.0-16.0) g/dL Hct (36.0-46.0) % MCV (80.0-98.0) fL MCH (27.0-32.0) pg MCHC (31.0-37.0) g/dL RDW Std Deviation (28.0-62.0) fl RDW Coeff of Bandar (11.0-15.0) % Plt Count (150-400) K/uL MPV (7.40-12.00) fL Neut % (Auto) (48.0-80.0) % Lymph % (Auto) (16.0-40.0) % [place] % (Auto) (0.0-15.0) % Eos % (Auto) (0.0-7.0) % Baso % (Auto) (0.0-1.5) % Neut # (Auto) (1.4-5.7) K/uL Lymph # (Auto) (0.6-2.4) K/uL [place] # (Auto) (0.0-0.8) K/uL Eos # (Auto) (0.0-0.7) K/uL Baso # (Auto) (0.0-0.1) K/uL INR Lactate (0.20-2.00) mmol/L Sodium 139 (136-145) mmol/L Potassium 3.3 L (3.5-5.1) mmol/L Chloride 101 (98-107) mmol/L Carbon Dioxide 24.3 (21.0-32.0) mmol/L BUN 14 (7.0-18.0) mg/dL Creatinine 1.2 H (0.6-1.0) mg/dL Est Cr Clr Drug Dosing 62.24 mL/min Estimated GFR (MDRD) 53.1 ml/min Glucose 120 H (74-106) mg/dL Calcium 9.7 (8.5-10.1) mg/dL Total Bilirubin 0.6 (0.2-1.0) mg/dL AST 54 H (15-37) IU/L ALT 131 H (14-63) IU/L Alkaline Phosphatase 124 H (46-116) U/L Total Protein 8.3 H (6.4-8.2) g/dL Albumin 3.9 (3.4-5.0) g/dL Globulin 4.4 H (2.6-4.0) g/dL Albumin/Globulin Ratio 0.9 (0.9-1.6) Lipase 62 L (73-393) U/L HCG, Qual NEGATIVE (NEG) Urine Color YELLOW Urine Appearance CLOUDY Urine pH 6.0 (5.0-8.0) Ur Specific [place] 1.025 (1.001-1.035) Urine Protein 30 H (NEGATIVE) mg/dL Urine Glucose (UA) NEGATIVE (NEGATIVE) mg/dL Urine Ketones TRACE H (NEGATIVE) mg/dL Urine Occult Blood SMALL H (NEGATIVE) Urine Nitrite NEGATIVE (NEGATIVE) Urine Bilirubin SMALL H (NEGATIVE) Urine Ictotest NEGATIVE Urine Urobilinogen 0.2 (<2.0) EU/dL Ur Leukocyte Esterase TRACE H (NEGATIVE) U Hyaline Cast (Auto) 6-8 (0-2/LPF) Urine RBC 3-6 (0-2/HPF) Urine WBC 5-7 (0-5/HPF) Ur Epithelial Cells FEW (NONE-FEW) Calcium Oxalate Crystal MODERATE (NEGATIVE) Amorphous Sediment LIGHT (NEGATIVE) Urine Bacteria 1+ H (NEGATIVE) Urine Mucus MODERATE (NONE-MOD) SARS-CoV-2 RNA (BETTY) (NEGATIVE) 09/09/20 Range/Units 01:30 WBC (4.0-11.0) K/uL RBC (4.30-5.90) M/uL Hgb (12.0-16.0) g/dL Hct (36.0-46.0) % MCV (80.0-98.0) fL MCH (27.0-32.0) pg MCHC (31.0-37.0) g/dL RDW Std Deviation (28.0-62.0) fl RDW Coeff of Bandar (11.0-15.0) % Plt Count (150-400) K/uL MPV (7.40-12.00) fL Neut % (Auto) (48.0-80.0) % Lymph % (Auto) (16.0-40.0) % [place] % (Auto) (0.0-15.0) % Eos % (Auto) (0.0-7.0) % Baso % (Auto) (0.0-1.5) % Neut # (Auto) (1.4-5.7) K/uL Lymph # (Auto) (0.6-2.4) K/uL [place] # (Auto) (0.0-0.8) K/uL Eos # (Auto) (0.0-0.7) K/uL Baso # (Auto) (0.0-0.1) K/uL INR Lactate (0.20-2.00) mmol/L Sodium (136-145) mmol/L Potassium (3.5-5.1) mmol/L Chloride (98-107) mmol/L Carbon Dioxide (21.0-32.0) mmol/L BUN (7.0-18.0) mg/dL Creatinine (0.6-1.0) mg/dL Est Cr Clr Drug Dosing mL/min Estimated GFR (MDRD) ml/min Glucose (74-106) mg/dL Calcium (8.5-10.1) mg/dL Total Bilirubin (0.2-1.0) mg/dL AST (15-37) IU/L ALT (14-63) IU/L Alkaline Phosphatase (46-116) U/L Total Protein (6.4-8.2) g/dL Albumin (3.4-5.0) g/dL Globulin (2.6-4.0) g/dL Albumin/Globulin Ratio (0.9-1.6) Lipase (73-393) U/L HCG, Qual (NEG) Urine Color Urine Appearance Urine pH (5.0-8.0) Ur Specific [place] (1.001-1.035) Urine Protein (NEGATIVE) mg/dL Urine Glucose (UA) (NEGATIVE) mg/dL Urine Ketones (NEGATIVE) mg/dL Urine Occult Blood (NEGATIVE) Urine Nitrite (NEGATIVE) Urine Bilirubin (NEGATIVE) Urine Ictotest Urine Urobilinogen (<2.0) EU/dL Ur Leukocyte Esterase (NEGATIVE) U Hyaline Cast (Auto) (0-2/LPF) Urine RBC (0-2/HPF) Urine WBC (0-5/HPF) Ur Epithelial Cells (NONE-FEW) Calcium Oxalate Crystal (NEGATIVE) Amorphous Sediment (NEGATIVE) Urine Bacteria (NEGATIVE) Urine Mucus (NONE-MOD) SARS-CoV-2 RNA (BETTY) NEGATIVE (NEGATIVE) Meds: Medications Discontinued Medications Generic Name Dose Route Start Last Admin Trade Name Anusha PRN Reason Stop Dose Admin Diphenhydramine HCl 50 mg 09/09/20 00:05 09/09/20 00:38 Benadryl IVPUSH 09/09/20 00:06 50 mg ONETIME ONE Administration Lactated Ringer's 1,000 mls @ 999 mls/hr 09/09/20 00:04 09/09/20 00:40 Ringers, Lactated IV 09/09/20 01:04 999 mls/hr .BOLUS ONE Administration Iopamidol 100 ml 09/09/20 01:23 09/09/20 01:24 Isovue Multipack-370 (76%) IVPUSH 09/09/20 01:24 100 ml ONETIME STA Administration Morphine Sulfate 4 mg 09/09/20 00:06 09/09/20 00:29 Morphine IVPUSH 09/09/20 00:07 4 mg ONETIME ONE Administration Prochlorperazine Edisylate 5 mg 09/09/20 00:05 09/09/20 00:43 Compazine IVPUSH 09/09/20 00:06 5 mg ONETIME ONE Administration Departure - Departure Time of Disposition: 03:33 Disposition: Home, Self-Care 01 Condition: Fair Clinical Impression: Gall bladder pain - Discharge Information *PRESCRIPTION DRUG MONITORING PROGRAM REVIEWED*: No *COPY OF PRESCRIPTION DRUG MONITORING REPORT IN PATIENT LEONELA: No Instructions: Biliary Colic, Adult Referrals: Markus Smith MD [Primary Care Provider] - Forms: ED Department Discharge Additional Instructions: You were evaluated today on an emergent basis. At this time there is a 2 cm x 2 cm fluid collection near your gallbladder. I did discuss this with your bypass team in [place]. They recommend antibiotics which I did prescribe you for the next 7 days. You will be contacted by your surgeons physician medical receptionist assistant to schedule close follow-up. If you have any worsening abdominal pain, fever or inability to tolerate p.o. please return to the emergency department. Please follow-up with your gastric bypass surgeon this week. The patient is informed of any results of their evaluation and diagnostic workup and all questions are answered. They are given discharge instructions and return precautions. The patient is stable for discharge. The patient states they understand and agree with the plan and that they will return if their symptoms get worse or if they have any new concerns. The following information is given to patients seen in the emergency department who are being discharged to home. This information is to outline your options for follow-up care. We provide all patients seen in our emergency department with a follow-up referral. The need for follow-up, as well as the timing and circumstances, are variable depending upon the specifics of your emergency department visit. If you don't have a primary care physician on staff, we will provide you with a referral. We always advise you to contact your personal physician following an emergency department visit to inform them of the circumstance of the visit and for follow-up with them and/or the need for any referrals to a consulting specialist. The emergency department will also refer you to a specialist when appropriate. This referral assures that you have the opportunity for follow-up care with a specialist. All of these measure are taken in an effort to provide you with optimal care, which includes your follow-up. Under all circumstances we always encourage you to contact your private physician who remains a resource for coordinating your care. When calling for follow-up care, please make the office aware that this follow-up is from your recent emergency room visit. If for any reason you are refused follow-up, please contact the [facility] Emergency Department at and asked to speak to the emergency department charge nurse.
[2020-09-09 00:43] LABS: CARBON DIOXIDE,CO2 24.3 mmol/L (21.0-32.0); POTASSIUM,K 3.3 mmol/L (3.5-5.1)
[2020-09-09] MEDS ORDERED: Iopamidol 755 MG/ML 500 ML Multipack Bottle IVPUSH STA (01:23)
--- NOTE | 2020-09-09 01:45 | CT ---
INDICATION: Epigastric pain, recent gastric bypass TECHNIQUE: CT abdomen and pelvis acquired with 100 cc Isovue 370 IV contrast. COMPARISON: August 16, 2020 FINDINGS: Lower chest: Unremarkable. Liver: Unremarkable. Spleen: Unremarkable. Pancreas: Unremarkable. Gallbladder and bile ducts: S/p cholecystectomy. There is a 2.2 x 1.6 cm round hypodensity in the gallbladder bed. Adrenal glands: Unremarkable. Kidneys: 2 mm nonobstructive left renal stone. GI tract: Postoperative changes of a gastric bypass procedure. Appendix is normal. Vascular structures: Unremarkable. Lymph nodes: Unremarkable. Miscellaneous: Unremarkable. No free air or significant free fluid. Pelvic Organs: Unremarkable. Bones: Unremarkable for age. IMPRESSION: Small round hypodensity in the gallbladder bed may represent a small amount of fluid or abscess after cholecystectomy. Recommend right upper quadrant ultrasound for further evaluation. Postoperative changes of a gastric bypass procedure without evidence for complication. Nonobstructive left nephrolithiasis. Please note that all CT scans at this facility use dose modulation, iterative reconstruction, and/or weight-based dosing when appropriate to reduce radiation dose to as low as reasonably achievable. Dictated by Kaya Edouard MD @ Sep 09 2020 1:37AM Signed by Dr. Kaya Edouard @ Sep 09 2020 1:43AM
--- NOTE | 2020-09-09 03:04 | US ---
INDICATION: Right upper quadrant abdominal pain TECHNIQUE: Ultrasound abdomen limited. Sonographic images of the right upper quadrant were obtained using russo-scale and color Doppler images. COMPARISON: CT 09/09/2020, 08/16/2020 FINDINGS: Liver: Mild fatty infiltration of the liver is noted. Gallbladder: In the cholecystectomy surgical bed, there is a well-circumscribed hypoechoic focus with a punctate central focus of increased echogenicity measuring 2.2 x 1.6 cm. No sonographic [place] sign is present. Cholecystectomy noted. Common bile duct: 9 mm. No intrahepatic biliary ductal dilatation seen. Pancreas: The visualized portions of the pancreatic head and body are normal in appearance. Right Kidney: 13.3 cm. No hydronephrosis or ureterectasis is seen. Vascular: The visualized abdominal aorta and IVC are unremarkable. IMPRESSIONS: 1. The CBD is enlarged which may be related to cholecystectomy. If there is clinical evidence of biliary obstruction, further evaluation with MRCP is recommended. 2. In the cholecystectomy surgical bed, there is a well-circumscribed hypoechoic focus with a punctate central focus of increased echogenicity measuring 2.2 x 1.6 cm. This corresponds to the fluid density structure seen on recent CT but new from 08/16/2020. This may represent a postoperative fluid collection or remnant of the gallbladder neck. Dictated by Marc Thomas MD @ 09/09/2020 3:02:20 AM Dictated by: Marc Thomas MD @ 09/09/2020 03:02:45 (Electronically Signed)
--- NOTE | 2020-09-10 13:03 | PCM.SN.2 ---
- Free Text/Narrative Note: I contacted patient for follow up. She stated that her pain has improved and is relieved by her home Percocet. She stated that the surgical wound on her abdomen is no longer draining any pus and the redness as not increased. She has been tolerating the antibiotics well. She stated that the PA from her surgeons office has yet to call her. I recommended contacting their office to set up and appointment. She stated that she also has the ability to send a message through her chart. She was given strict return precautions.
== END 2020-09-09 03:41 | disposition home or self-care (01) ==
LOC: MW.ED 23:45
DX: K82.9 Disease of gallbladder, unspecified (principal); J45.909 Unspecified asthma, uncomplicated; F41.9 Anxiety disorder, unspecified; F31.9 Bipolar disorder, unspecified; E66.9 Obesity, unspecified; Z68.41 Body mass index [BMI] 40.0-44.9, adult; Z91.048 Other nonmedicinal substance allergy status; Z88.5 Allergy status to narcotic agent; Z88.8 Allergy status to other drugs, medicaments and biological substances; Z91.040 Latex allergy status; Z79.899 Other long term (current) drug therapy; Z20.828 Contact with and (suspected) exposure to other viral communicable diseases
CPT/HCPCS: 36415; 74177; 76705; 80053; 81001; 83605; 83690; 84703; 85025; 85610; 87086; 87635; 96374; 96375; 99284; J0780; J1200; J2270; J7120; Q9967; U0002